=== PATIENT | male | born 1980 | race American Indian/Alaskan Native ===

== ENCOUNTER 2021-05-18 14:33 | Observation (INO) | payer MEDICAID ==
[2021-05-18] MEDS ORDERED: SODIUM CHLORIDE 0.9% 1000 ML 1,000 ML IV ONE ×4 (14:54→19:46)
[2021-05-18] MEDS ORDERED: ONDANSETRON 4 MG/2 ML INJ IV ONE (14:54)
[2021-05-18] MEDS ORDERED: MORPHINE 4 MG/1 ML INJ IV ONE (14:55)
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
--- NOTE | 2021-05-18 15:41 | XRay Report ---
CHEST 1 VIEW INDICATION: Chest pain. COMPARISON: None FINDINGS: Support devices: None. Heart: Within normal limits. Lungs/Pleura: No acute air space or interstitial disease. Additional findings: None. IMPRESSION: No acute findings. Signer Name: Davi Vazquez Jr, MD Signed: 05/18/2021 3:37 PM Workstation Name: [id number]
[2021-05-18 15:43] LABS: Basophils # (Auto) 0.1 K/mm3 (0.0-0.1); Basophils % (Auto) 0.6 % (0.0-1.8); Eosinophils % (Auto) 0.5 % (0.0-4.3); Hematocrit 36.3 % (35.5-45.6); Hemoglobin 11.6 gm/dl (11.8-15.2); Lymphocytes # (Auto) 1.5 K/mm3 (1.2-5.4); Mean Corpuscular HGB Conc 32 % (32-34); Mean Corpuscular Volume 98 fl (84-94); Monocytes # (Auto) 0.6 K/mm3 (0.0-0.8); Monocytes % (Auto) 6.1 % (0.0-7.3); Platelet Count 216 K/mm3 (140-440); Red Blood Count 3.71 M/mm3 (3.65-5.03)
[2021-05-18 15:51] LABS: INR 0.93 (0.87-1.13)
[2021-05-18] MEDS ORDERED: HALOPERIDOL LACTATE 5 MG/1 ML INJ IV ONE (15:59)
[2021-05-18 16:16] LABS: Alanine Aminotransferase 18 units/L (7-56); Albumin 4.2 g/dL (3.9-5); BUN/Creatinine Ratio 22; Blood Urea Nitrogen 42 mg/dL (9-20); Calcium 9.3 mg/dL (8.4-10.2); Hemolysis Index 119
[2021-05-18] MEDS ORDERED: INSULIN REGULAR, HUMAN 100 UNITS/1 ML IV ONE (16:43)
--- NOTE | 2021-05-18 18:05 | Cat Scan Report ---
CTA CHEST WITH CONTRAST INDICATION / CLINICAL INFORMATION: CP, elevated dimer. TECHNIQUE: Axial CT images were obtained through the chest after injection of IV contrast. 3 plane [place] P and/or 3D reconstructions were produced. All CT scans at this location are performed using CT dose reduction for ALARA by means of automated exposure control. COMPARISON: None available. FINDINGS: PULMONARY ARTERIES: No pulmonary emboli. THORACIC AORTA: No significant abnormality. HEART: No significant abnormality. CORONARY ARTERY CALCIFICATION: None. MEDIASTINUM / GLORIA: No significant abnormality. PLEURA: No pleural effusion. No pneumothorax. LUNGS: No acute air space or interstitial disease. ADDITIONAL FINDINGS: None. UPPER ABDOMEN: No acute findings. SKELETAL STRUCTURES: No significant osseous abnormality. IMPRESSION: 1. No CT evidence for pulmonary embolism. 2. No acute findings. Signer Name: Leoncio Cook MD Signed: 05/18/2021 6:00 PM Workstation Name: [id number]
[2021-05-18 18:37] LABS: BUN/Creatinine Ratio 22; Blood Urea Nitrogen 39 mg/dL (9-20); Calcium 8.5 mg/dL (8.4-10.2); Hemolysis Index 99
[2021-05-18 19:37] LABS: Bilirubin,Urine NEG (Negative); Blood,Urine MOD (Negative); Color,Urine Straw (Yellow); Mucus,Urine FEW /HPF; Urobilinogen,Urine < 2.0 mg/dL (<2.0)
[2021-05-18 20:00] LABS: Amphetamine Screen,Urine PRESUMPTIVE NEGATIVE; Benzodiazepines Screen,Urine PRESUMPTIVE NEGATIVE; Cannabinoid Screen,Urine PRESUMPTIVE POSITIVE; Cocaine Screen,Urine PRESUMPTIVE NEGATIVE; Methadone Screen,Urine PRESUMPTIVE NEGATIVE; Opiate Screen,Urine PRESUMPTIVE NEGATIVE
[2021-05-18 20:55] LABS: Calcium 8.1 mg/dL (8.4-10.2)
--- NOTE | 2021-05-18 21:43 | Emergency Department Report ---
Blank Doc - Documentation Documentation: Case was discussed with Dr. Hopkins who agrees to admit.
[2021-05-18] MEDS ORDERED: ACETAMINOPHEN 325 MG TAB PO PRN (22:15)
[2021-05-18] MEDS ORDERED: ONDANSETRON 4 MG/2 ML INJ IV PRN (22:15)
[2021-05-18] MEDS ORDERED: HYDROmorphone 1 MG/1 ML INJ IV PRN (22:15)
[2021-05-18] MEDS ORDERED: SODIUM CHLORIDE 0.9% 1000 ML 1,000 ML IV SCH (22:15)
[2021-05-18] MEDS ORDERED: ALBUTEROL 2.5 MG/3 ML NEBU IH PRN (22:15)
[2021-05-18] MEDS ORDERED: DEXTROSE 50% IN WATER (25GM) 50 ML SYRINGE IV PRN (22:15)
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
[2021-05-18] MEDS: INSULIN GLARGINE 100 UNITS/ML SUB-Q SCH (23:11)
[2021-05-18] MEDS: oxyCODONE /ACETAMINOPHEN 5-325MG TAB PO PRN (23:27)
[2021-05-19] MEDS ORDERED: HALOPERIDOL LACTATE 5 MG/1 ML INJ IM ONE (00:11)
[2021-05-19] MEDS: INSULIN LISPRO 100 UNIT/ML SUB-Q SCH ×4 (00:15→17:41)
[2021-05-19 04:55] LABS: Basophils # (Auto) 0.1 K/mm3 (0.0-0.1); Basophils % (Auto) 0.5 % (0.0-1.8); Hematocrit 33.3 % (35.5-45.6); Hemoglobin 10.7 gm/dl (11.8-15.2); Lymphocytes # (Auto) 1.3 K/mm3 (1.2-5.4); Lymphocytes % (Auto) 10.1 % (13.4-35.0); Mean Corpuscular HGB Conc 32 % (32-34); Mean Corpuscular Volume 95 fl (84-94); Monocytes # (Auto) 0.7 K/mm3 (0.0-0.8); Monocytes % (Auto) 5.3 % (0.0-7.3); Platelet Count 192 K/mm3 (140-440); Red Blood Count 3.52 M/mm3 (3.65-5.03); Red Cell Distribution Width 13.2 % (13.2-15.2)
[2021-05-19] MEDS: HEPARIN 5,000 UNIT/1 ML VIAL SUB-Q SCH ×3 (05:58→23:08)
[2021-05-19] MEDS ORDERED: SODIUM CHLORIDE 0.9% 1000 ML 1,000 ML IV SCH (08:45)
[2021-05-19] MEDS ORDERED: SODIUM CHLORIDE 0.9% 1000 ML 1,000 ML IV ONE (08:45)
--- NOTE | 2021-05-19 09:54 | Cat Scan Report ---
CT ABDOMEN AND PELVIS WITHOUT CONTRAST INDICATION / CLINICAL INFORMATION: abdominal pain PT HAD A WITH CONTRAST STUDY DONE YESTERDAY AT 5 PM . . TECHNIQUE: Axial CT images were obtained through the abdomen and pelvis without IV contrast. Sagittal and blair l reformatted images. All CT scans at this location are performed using CT dose reduction for ALARA b y means of automated exposure control. COMPARISON: None available. FINDINGS: LOWER CHEST: No significant abnormality. LIVER: No significant abnormality. GALLBLADDER: No significant abnormality. Vicarious excretion of contrast agent into the gallbladder i s noted. BILE DUCTS: No significant abnormality. PANCREAS: No significant abnormality. SPLEEN: No significant abnormality. ADRENALS: No significant abnormality. RIGHT KIDNEY and URETER: No significant abnormality. LEFT KIDNEY and URETER: No significant abnormality. STOMACH and SMALL BOWEL: No significant abnormality. COLON: No significant abnormality. APPENDIX: No significant abnormality. PERITONEUM: No free fluid. No free air. No fluid collection. LYMPH NODES: No significant adenopathy. AORTA and ARTERIES: No significant abnormality. IVC and VEINS: No significant abnormality. URINARY BLADDER: No significant abnormality. Residual IV contrast is noted in the renal collecting sy stems and bladder from previous CT with contrast. REPRODUCTIVE ORGANS: No significant abnormality. ADDITIONAL FINDINGS: None. SKELETAL SYSTEM: No significant abnormality. IMPRESSION: No significant abnormality. Signer Name: Davi Vazquez Jr, MD Signed: 05/19/2021 9:49 AM Workstation Name: [id number]
[2021-05-19] MEDS: ASPIRIN 81 MG TAB CHEW PO SCH (09:59)
[2021-05-19] MEDS ORDERED: FAMOTIDINE 20 MG/2 ML INJ IV SCH (10:00)
[2021-05-19] MEDS: INSULIN GLARGINE 100 UNITS/ML SUB-Q SCH ×2 (10:15→23:09)
[2021-05-19] MEDS ORDERED: hydrALAZINE 20 MG/1 ML INJ IV PRN (13:25)
[2021-05-19] MEDS: oxyCODONE /ACETAMINOPHEN 5-325MG TAB PO PRN (13:35)
[2021-05-19] MEDS: LISINOPRIL 5 MG TAB PO SCH (14:24)
[2021-05-19] MEDS: SODIUM BICARBONATE 650 MG TAB PO SCH ×2 (16:24→23:08)
[2021-05-19] MEDS: IPRATROPIUM/ALBUTEROL SULFATE 3 ML AMPUL.NEB IH SCH ×3 (21:55→22:10)
[2021-05-20] MEDS ORDERED: LORazepam 2 MG/ML VIAL IV ONE (00:31)
[2021-05-20] MEDS: INSULIN LISPRO 100 UNIT/ML SUB-Q SCH ×3 (00:33→11:20)
[2021-05-20] MEDS: oxyCODONE /ACETAMINOPHEN 5-325MG TAB PO PRN (05:31)
[2021-05-20] MEDS: HEPARIN 5,000 UNIT/1 ML VIAL SUB-Q SCH (05:32)
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
--- NOTE | 2021-05-20 08:39 | Electrocardiograph Report ---
[facility] Test Date: 2021-05-18 Test Time: 15:13:14 Pat Name: MANISH CELESTE Department: Room: A481 Gender: M Timing Inspector: ALTAGRACIA : 1980 Requested By: TRACI GARCIA Order Number: [id number] Reading MD: Shane Villanueva Measurements Intervals [place] Rate: 115 P: 76 ND: 166 QRS: 75 QRSD: 70 T: 63 QT: 332 QTc: 460 Interpretive Statements Sinus tachycardia Probable left atrial enlargement Consider anterolateral infarct No previous ECG available for comparison Electronically Signed On 05-20-2021 8:39:05 EST by Shane Villanueva
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
[2021-05-20 09:52] LABS: Basophils # (Auto) 0.1 K/mm3 (0.0-0.1); Basophils % (Auto) 1.1 % (0.0-1.8); Eosinophils % (Auto) 0.1 % (0.0-4.3); Hematocrit 34.9 % (35.5-45.6); Hemoglobin 11.2 gm/dl (11.8-15.2); Lymphocytes # (Auto) 1.2 K/mm3 (1.2-5.4); Lymphocytes % (Auto) 12.7 % (13.4-35.0); Mean Corpuscular HGB Conc 32 % (32-34); Mean Corpuscular Volume 95 fl (84-94); Monocytes # (Auto) 0.6 K/mm3 (0.0-0.8); Monocytes % (Auto) 6.5 % (0.0-7.3); Platelet Count 228 K/mm3 (140-440); Red Blood Count 3.67 M/mm3 (3.65-5.03); Red Cell Distribution Width 13.6 % (13.2-15.2)
[2021-05-20] MEDS ORDERED: FAMOTIDINE 20 MG TAB PO SCH (10:00)
[2021-05-20 10:09] LABS: BUN/Creatinine Ratio 16; Blood Urea Nitrogen 22 mg/dL (9-20); Calcium 8.9 mg/dL (8.4-10.2); Hemolysis Index 8
[2021-05-20] MEDS: SODIUM BICARBONATE 650 MG TAB PO SCH (10:26)
[2021-05-20] MEDS: LISINOPRIL 5 MG TAB PO SCH (10:26)
[2021-05-20] MEDS: ASPIRIN 81 MG TAB CHEW PO SCH (10:26)
[2021-05-20] MEDS: INSULIN GLARGINE 100 UNITS/ML SUB-Q SCH (10:27)
[2021-05-20 12:12] VITALS: BP 130/87
== END 2021-05-20 13:20 | disposition home or self-care (01) ==
LOC: ED 14:33 → 3A 21:50 → 4A 22:20
PROVIDERS: ADMIT Hospitalist; ATTEND Internal Medicine
DX: N17.9 Acute kidney failure, unspecified (principal); E11.65 Type 2 diabetes mellitus with hyperglycemia; N17.0 Acute kidney failure with tubular necrosis; R07.89 Other chest pain; E86.0 Dehydration; F17.210 Nicotine dependence, cigarettes, uncomplicated; R10.9 Unspecified abdominal pain; Z79.4 Long term (current) use of insulin; Z79.899 Other long term (current) drug therapy; Z98.890 Other specified postprocedural states
CPT/HCPCS: 36415; 71045; 71275; 74176; 80048; 80053; 80307; 81001; 82010; 82805; 82962; 83036; 83690; 84484; 85025; 85379; 85610; 93005; 96361; 96372; 96374; 96375; 99285; G0378; J1630; J1644; J2060; J2270; J2405; J3490; J7030; Q9967; Q0162; J1815

== ENCOUNTER 2021-08-04 02:34 | Inpatient (IN) | payer SELFPAY ==
[2021-08-04] MEDS ORDERED: SODIUM CHLORIDE 0.9% 1000 ML 1,000 ML IV ONE ×6 (03:03→17:55)
[2021-08-04 03:41] LABS: Basophils % (Auto) 0.4 % (0.0-1.8); Eosinophils % (Auto) 0.1 % (0.0-4.3); Hematocrit 34.4 % (35.5-45.6); Hemoglobin 11.1 gm/dl (11.8-15.2); Lymphocytes # (Auto) 0.7 K/mm3 (1.2-5.4); Lymphocytes % (Auto) 6.4 % (13.4-35.0); Mean Corpuscular HGB Conc 32 % (32-34); Mean Corpuscular Volume 95 fl (84-94); Monocytes # (Auto) 0.4 K/mm3 (0.0-0.8); Monocytes % (Auto) 3.1 % (0.0-7.3); Platelet Count 197 K/mm3 (140-440); Red Blood Count 3.61 M/mm3 (3.65-5.03); Red Cell Distribution Width 12.9 % (13.2-15.2)
[2021-08-04 04:11] LABS: Alanine Aminotransferase 21 units/L (7-56); Albumin 4.4 g/dL (3.9-5); BUN/Creatinine Ratio 20; Bilirubin,Direct < 0.2 mg/dL (0-0.2); Blood Urea Nitrogen 46 mg/dL (9-20); Calcium 9.8 mg/dL (8.4-10.2); Hemolysis Index 17
[2021-08-04] MEDS ORDERED: INSULIN REGULAR, HUMAN 100 UNITS/1 ML IV ONE (04:23)
[2021-08-04] MEDS ORDERED: MORPHINE 4 MG/1 ML INJ IV ONE (04:25)
[2021-08-04] MEDS ORDERED: ONDANSETRON 4 MG/2 ML INJ IV ONE (04:28)
[2021-08-04] MEDS ORDERED: MORPHINE 4 MG/1 ML INJ ONE (04:29)
[2021-08-04] MEDS ORDERED: ONDANSETRON 4 MG/2 ML INJ ONE (04:29)
[2021-08-04] MEDS ORDERED: INSULIN REGULAR, HUMAN 100 UNITS in SODIUM CHLORIDE 0.9% 99 ML IV SCH (05:00)
--- NOTE | 2021-08-04 05:02 | XRay Report ---
CHEST 1 VIEW INDICATION / CLINICAL INFORMATION: pain. COMPARISON: 05/18/2021 FINDINGS: SUPPORT DEVICES: None. HEART / MEDIASTINUM: No significant abnormality. LUNGS / PLEURA: No significant pulmonary or pleural abnormality. No pneumothorax. ADDITIONAL FINDINGS: No significant additional findings. IMPRESSION: 1. No acute findings. No interval change. Signer Name: Kaylyn Bean MD Signed: 08/04/2021 4:57 AM Workstation Name: [id number]
[2021-08-04 05:41] LABS: Calcium 9.1 mg/dL (8.4-10.2)
[2021-08-04 05:59] LABS: Bilirubin,Urine NEG (Negative); Blood,Urine MOD (Negative); Color,Urine Amber (Yellow); Urobilinogen,Urine < 2.0 mg/dL (<2.0)
--- NOTE | 2021-08-04 06:15 | Emergency Department Report ---
ED General Adult HPI - General Chief complaint: Hyperglycemia Stated complaint: HIGH BLOOD SUGAR Time Seen by Provider: 08/04/21 03:01 Source: EMS Mode of arrival: Wheelchair Limitations: No Limitations - History of Present Illness Severity scale (0 -10): 7 - Related Data Previous Rx's Medication Instructions Recorded Last Taken Type Aspirin [Aspirin BABY CHEW TAB] 81 mg PO QDAY #30 tab.chew 05/20/21 Unknown Rx AtorvaSTATin [Lipitor] 40 mg PO QHS #30 tablet 05/20/21 Unknown Rx Insulin Regular, Human [HumuLIN R] 0 unit SQ AC #1 vial 05/20/21 Unknown Rx cephALEXin [Keflex] 500 mg PO Q6HR #20 capsule 05/20/21 Unknown Rx Allergies Allergy/AdvReac Type Severity Reaction Status Date / Time No Known Allergies Allergy Verified 05/18/21 14:36 ED Review of Systems ROS: Stated complaint: HIGH BLOOD SUGAR Other details as noted in HPI ED Past Medical Hx - Past Medical History Hx Diabetes: Yes Hx Seizures: Yes Additional medical history: Gastritis - Social History Smoking Status: Current Every Day Smoker - Medications Home Medications: Home Medications Medication Instructions Recorded Confirmed Last Taken Type Aspirin [Aspirin BABY CHEW TAB] 81 mg PO QDAY #30 tab.chew 05/20/21 Unknown Rx AtorvaSTATin [Lipitor] 40 mg PO QHS #30 tablet 05/20/21 Unknown Rx Insulin Regular, Human [HumuLIN R] 0 unit SQ AC #1 vial 05/20/21 Unknown Rx cephALEXin [Keflex] 500 mg PO Q6HR #20 capsule 05/20/21 Unknown Rx ED Physical Exam - General Limitations: No Limitations ED Course Vital Signs 08/04/21 08/04/21 08/04/21 02:51 03:30 04:35 Temperature 98.7 F Pulse Rate 101 H 111 H Respiratory 16 13 18 Rate Blood Pressure 153/86 Blood Pressure 180/109 [Left] O2 Sat by Pulse 99 98 Oximetry ED Medical Decision Making - Lab Data Result diagrams: 08/04/21 03:32 08/04/21 04:44 Critical care attestation.: If time is entered above; I have spent that time in minutes in the direct care of this critically ill patient, excluding procedure time. ED Disposition Clinical Impression: KARLO (acute kidney injury), Diabetes, Hyperglycemia, DKA (diabetic ketoacidosis) Disposition: 09 ADMITTED INPATIENT Is pt being admited?: Yes Does the pt Need Aspirin: No Condition: Critical Instructions: Diabetes Mellitus Type 2 in Adults (ED), Diabetic Ketoacidosis (ED) Referrals: PRIMARY CARE,MD [Primary Care Provider] - 3-5 Days
[2021-08-04] MEDS ORDERED: D5W/0.45% NACL/KCL 20 MEQ 20 MEQ/1,000 ML BAG IV SCH (07:00)
[2021-08-04 07:18] LABS: Calcium 8.9 mg/dL (8.4-10.2)
[2021-08-04] MEDS ORDERED: DEXTROSE 50% IN WATER (25GM) 50 ML SYRINGE IV PRN ×2 (07:18→18:19)
[2021-08-04] MEDS ORDERED: SODIUM CHLORIDE 0.9% 1000 ML 2,000 ML IV ONE (07:30)
--- NOTE | 2021-08-04 07:39 | History and Physical Report ---
History of Present Illness Date of examination: 08/04/21 Date of admission: 08/04/21 Chief complaint: Elevated Blood glucose History of present illness: 40-year-old male with history of diabetes and tobacco abuse was brought to the emergency room with complaints of high blood sugar. The patient states that due to his job he has inconsistencies in the times that he checks his blood sugar and the time he takes his medication sometimes he checks it at 1 AM but ends up taking medication at 8AM. On arrival to the ER he was noted to to be in DKA. He denies any chest pain nausea vomiting he does report that he had diarrhea a few days ago but this has since stopped. He reports that he is compliant with his medications. He does not have a physician as he states that he just relocated from [facility]. Review of record shows that he was previously admitted to the hospital here for chest pain and at that time was noted to have hyperglycemia also. The medication that he was discharged on which includes Lantus does not appear to be what he is taking currently. He is also unable to recall all the medications that he is taking. Laboratories studies also indicated a creatinine of 2.3 which is above his baseline. DKA Uncontrolled blood glucose in a patient with diabetes mellitus Acute kidney injury with vasomotor nephropathy Anabolic acidosis Dehydration with recent complaint of diarrhea next Past History Past Medical History: hypertension Past Surgical History: No surgical history Social history: no significant social history Family history: no significant family history Medications and Allergies Allergies Allergy/AdvReac Type Severity Reaction Status Date / Time No Known Allergies Allergy Verified 05/18/21 14:36 Home Medications Medication Instructions Recorded Confirmed Last Taken Type Aspirin [Aspirin BABY CHEW TAB] 81 mg PO QDAY #30 tab.chew 05/20/21 Unknown Rx AtorvaSTATin [Lipitor] 40 mg PO QHS #30 tablet 05/20/21 Unknown Rx Insulin Regular, Human [HumuLIN R] 0 unit SQ AC #1 vial 05/20/21 Unknown Rx cephALEXin [Keflex] 500 mg PO Q6HR #20 capsule 05/20/21 Unknown Rx Active Meds: Active Medications Aspirin (Aspirin 81 Mg Tab Chew) 81 mg PO QDAY MARCUS Atorvastatin Calcium (Atorvastatin 40 Mg Tab) 40 mg PO QHS [facility] Dextrose (Dextrose 10% *Hypoglycemia) 0 ml IV PRN PRN PRN Reason: Hypoglycemia Insulin Human Regular 100 (units/ Sodium Chloride) 100 mls @ 1 mls/hr IV TITR MARCUS; Protocol Last Titration: 08/04/21 06:50 Dose: 2.5 units/hr, 2.5 mls/hr Potassium Chloride/Dextrose/Sod Cl (D5w/0.45% Nacl/Kcl 20 Meq) 20 meq in 1,000 mls @ 125 mls/hr IV DIRECT MARCUS Last Admin: 08/04/21 07:21 Dose: 125 mls/hr Sodium Chloride (Nacl 0.9% 1000 Ml) 2,000 mls @ 999 mls/hr IV BOLUS ONE Stop: 08/04/21 09:30 Review of Systems All systems: negative Cardiovascular: high blood pressure Gastrointestinal: nausea, vomiting Exam - Physical Exam Narrative exam: VITAL SIGNS: Reviewed. GENERAL: The patient appears normally developed, Vital signs as documented. HEAD: No signs of head trauma. EYES: Pupils are equal. Extraocular motions intact. EARS: Hearing grossly intact. MOUTH: Oropharynx is normal. NECK: No adenopathy, no JVD. CHEST: Chest with clear breath sounds bilaterally. No wheezes, rales, or rhonchi. CARDIAC: Regular rate and rhythm. S1 and S2, without murmurs, gallops, or rubs. VASCULAR: No Edema. Peripheral pulses normal and equal in all extremities. ABDOMEN: Soft, non tender and non distended. No rebound or guarding, and no masses palpated. Bowel Sounds normal. MUSCULOSKELETAL: Good range of motion of all major joints. Extremities without clubbing, cyanosis or edema. NEUROLOGIC EXAM: Alert and oriented x 3 No focal sensory or strength deficits. Speech normal. Follows commands. PSYCHIATRIC: Mood normal. SKIN: detail exam as documented in skin assessment - Constitutional Vitals: Temp Pulse Resp BP Pulse Ox 98.7 F 111 H 18 111/68 98 08/04/21 02:51 08/04/21 03:30 08/04/21 05:05 08/04/21 07:16 08/04/21 07:16 Results - Labs CBC & Chem 7: 08/04/21 03:32 08/04/21 11:05 Labs: Laboratory Last Values WBC 11.4 K/mm3 (4.5-11.0) H 08/04/21 03:32 RBC 3.61 M/mm3 (3.65-5.03) L 08/04/21 03:32 Hgb 11.1 gm/dl (11.8-15.2) L 08/04/21 03:32 Hct 34.4 % (35.5-45.6) L 08/04/21 03:32 MCV 95 fl (84-94) H 08/04/21 03:32 MCH 31 pg (28-32) 08/04/21 03:32 MCHC 32 % (32-34) 08/04/21 03:32 RDW 12.9 % (13.2-15.2) L 08/04/21 03:32 Plt Count 197 K/mm3 (140-440) 08/04/21 03:32 Lymph % (Auto) 6.4 % (13.4-35.0) L 08/04/21 03:32 [place] % (Auto) 3.1 % (0.0-7.3) 08/04/21 03:32 Eos % (Auto) 0.1 % (0.0-4.3) 08/04/21 03:32 Baso % (Auto) 0.4 % (0.0-1.8) 08/04/21 03:32 Lymph # (Auto) 0.7 K/mm3 (1.2-5.4) L 08/04/21 03:32 [place] # (Auto) 0.4 K/mm3 (0.0-0.8) 08/04/21 03:32 Eos # (Auto) 0.0 K/mm3 (0.0-0.4) 08/04/21 03:32 Baso # (Auto) 0.0 K/mm3 (0.0-0.1) 08/04/21 03:32 Seg Neutrophils % 90.0 % (40.0-70.0) H 08/04/21 03:32 Seg Neutrophils # 10.3 K/mm3 (1.8-7.7) H 08/04/21 03:32 PT 13.3 Sec. (12.2-14.9) 08/04/21 03:32 INR 1.00 (0.87-1.13) 08/04/21 03:32 Sodium 140 mmol/L (137-145) 08/04/21 06:45 Potassium 4.2 mmol/L (3.6-5.0) 08/04/21 06:45 Chloride 101.8 mmol/L (98-107) 08/04/21 06:45 Carbon Dioxide 22 mmol/L (22-30) 08/04/21 06:45 Anion Gap 20 mmol/L 08/04/21 06:45 BUN 43 mg/dL (9-20) H 08/04/21 06:45 Creatinine 2.0 mg/dL (0.8-1.3) H 08/04/21 06:45 Estimated GFR 45 ml/min 08/04/21 06:45 BUN/Creatinine Ratio 22 % 08/04/21 06:45 Glucose 155 mg/dL (75-100) H 08/04/21 06:45 POC Glucose 168 mg/dL (70-105) H 08/04/21 06:45 Ketones Quantitative Small (Negative) 08/04/21 05:03 Calcium 8.9 mg/dL (8.4-10.2) 08/04/21 06:45 Phosphorus 5.10 mg/dL (2.5-4.5) H 08/04/21 04:44 Magnesium 2.30 mg/dL (1.7-2.3) 08/04/21 04:44 Total Bilirubin 0.50 mg/dL (0.1-1.2) 08/04/21 03:32 Direct Bilirubin < 0.2 mg/dL (0-0.2) 08/04/21 03:32 Indirect Bilirubin 0.3 mg/dL 08/04/21 03:32 AST 26 units/L (5-40) 08/04/21 03:32 ALT 21 units/L (7-56) 08/04/21 03:32 Alkaline Phosphatase 114 units/L (35-129) 08/04/21 03:32 Total Protein 7.0 g/dL (6.3-8.2) 08/04/21 03:32 Albumin 4.4 g/dL (3.9-5) 08/04/21 03:32 Albumin/Globulin Ratio 1.7 % 08/04/21 03:32 Amylase 124 units/L (27-131) 08/04/21 03:32 Urine Color Vi (Yellow) 08/04/21 Unknown Urine Turbidity Cloudy (Clear) 08/04/21 Unknown Urine pH 5.0 (5.0-7.0) 08/04/21 Unknown Ur Specific [place] 1.016 (1.003-1.030) 08/04/21 Unknown Urine Protein 100 mg/dl mg/dL (Negative) 08/04/21 Unknown Urine Glucose (UA) Neg mg/dL (Negative) 08/04/21 Unknown Urine Ketones Neg mg/dL (Negative) 08/04/21 Unknown Urine Blood Mod (Negative) 08/04/21 Unknown Urine Nitrite Neg (Negative) 08/04/21 Unknown Urine Bilirubin Neg (Negative) 08/04/21 Unknown Urine Urobilinogen < 2.0 mg/dL (<2.0) 08/04/21 Unknown Ur Leukocyte Esterase Lg (Negative) 08/04/21 Unknown Urine WBC (Auto) 1.0 /HPF (0.0-6.0) 08/04/21 Unknown Urine RBC (Auto) 1.0 /HPF (0.0-6.0) 08/04/21 Unknown Assessment and Plan Assessment and plan: 40-year-old male with history of diabetes and tobacco abuse was brought to the emergency room with complaints of high blood sugar. The patient states that due to his job he has inconsistencies in the times that he checks his blood sugar and the time he takes his medication sometimes he checks it at 1 AM but ends up taking medication at 8AM. On arrival to the ER he was noted to to be in DKA. He denies any chest pain nausea vomiting he does report that he had diarrhea a few days ago but this has since stopped. He reports that he is compliant with his medications. He does not have a physician as he states that he just relocated from [facility]. Review of record shows that he was previously admitted to the hospital here for chest pain and at that time was noted to have hyperglycemia also. The medication that he was discharged on which includes Lantus does not appear to be what he is taking currently. He is also unable to recall all the medications that he is taking. Laboratories studies also indicated a creatinine of 2.3 which is above his baseline. DKA Uncontrolled blood glucose in a patient with diabetes mellitus Acute kidney injury with vasomotor nephropathy Anabolic acidosis Dehydration with recent complaint of diarrhea next Plan Admit patient to ICU Consult to web offset press feeder Continue insulin drip as already initiated by the ED physician Transition therapy when anion gap is closed Resume home dose of blood pressure medication We will give additional 2 L bolus of fluid Counseling provided to the patient he verbalized understanding DVT and GI prophylax The high probability of a clinically significant, sudden or life threatening deterioration of the [endocrinology] system(s) required my full and direct attention, intervention and personal management. The aggregate critical care time was [35] minutes. This time is in addition to time spent performing reported procedures but includes the following: [x] Data Review and interpretation [x] Patient assessment and monitoring of vital signs [x] Documentation [x] Medication orders and management Advance Directives: Yes Plan of care discussed with patient/family: Yes
[2021-08-04] MEDS ORDERED: ONDANSETRON 4 MG/2 ML INJ IV PRN (08:00)
[2021-08-04] MEDS ORDERED: ACETAMINOPHEN 325 MG TAB PO PRN (08:00)
[2021-08-04] MEDS ORDERED: SODIUM CHLORIDE 0.9% 50 ML IVPB IV PRN (08:00)
[2021-08-04] MEDS ORDERED: DEXTROSE 10% *Hypoglycemia IV PRN (08:00)
[2021-08-04 08:25] LABS: Calcium 8.9 mg/dL (8.4-10.2)
[2021-08-04] MEDS: ASPIRIN 81 MG TAB CHEW PO SCH (11:17)
[2021-08-04 11:31] LABS: Calcium 8.5 mg/dL (8.4-10.2)
[2021-08-04] MEDS ORDERED: DEXTROSE 5% IN WATER 1,000 ML IV SCH (15:00)
[2021-08-04 16:43] LABS: Calcium 8.5 mg/dL (8.4-10.2)
[2021-08-04] MEDS ORDERED: INSULIN LISPRO 100 UNIT/ML SUB-Q ONE (19:00)
[2021-08-04] MEDS: INSULIN REGULAR, HUMAN 100 UNITS/1 ML SUB-Q SCH (23:34)
[2021-08-04] MEDS: INSULIN GLARGINE 100 UNITS/ML SUB-Q SCH (23:36)
[2021-08-05 08:13] LABS: Basophils # (Auto) 0.1 K/mm3 (0.0-0.1); Eosinophils # (Auto) 0.5 K/mm3 (0.0-0.4); Eosinophils % (Auto) 4.7 % (0.0-4.3); Hemoglobin 10.3 gm/dl (11.8-15.2); Lymphocytes # (Auto) 1.8 K/mm3 (1.2-5.4); Lymphocytes % (Auto) 17.6 % (13.4-35.0); Mean Corpuscular HGB Conc 33 % (32-34); Mean Corpuscular Volume 92 fl (84-94); Monocytes # (Auto) 0.5 K/mm3 (0.0-0.8); Monocytes % (Auto) 5.2 % (0.0-7.3); Platelet Count 173 K/mm3 (140-440); Red Blood Count 3.36 M/mm3 (3.65-5.03); Red Cell Distribution Width 12.7 % (13.2-15.2)
[2021-08-05 08:30] LABS: Calcium 8.4 mg/dL (8.4-10.2)
[2021-08-05] MEDS: ASPIRIN 81 MG TAB CHEW PO SCH (08:57)
[2021-08-05] MEDS: oxyCODONE /ACETAMINOPHEN 5-325MG TAB PO PRN ×2 (08:57→18:21)
[2021-08-05] MEDS: METOCLOPRAMIDE 10 MG/2 ML INJ IV PRN ×2 (08:57→18:23)
[2021-08-05] MEDS: INSULIN REGULAR, HUMAN 100 UNITS/1 ML SUB-Q SCH ×4 (08:57→21:49)
--- NOTE | 2021-08-05 10:27 | Consultation ---
History of Present Illness Consult date: 08/05/21 Requesting physician: MISSY CHERRY Reason for consult: other (DKA) History of present illness: PULMONARY/CCM CONSULT NOTE (Full dictation # [id number]) Please see dictated notes for full details Past History Past Medical History: hypertension Past Surgical History: No surgical history Social history: no significant social history Family history: no significant family history Medications and Allergies Allergies Allergy/AdvReac Type Severity Reaction Status Date / Time No Known Allergies Allergy Verified 05/18/21 14:36 Home Medications Medication Instructions Recorded Confirmed Last Taken Type Aspirin [Aspirin BABY CHEW TAB] 81 mg PO QDAY #30 tab.chew 05/20/21 Unknown Rx AtorvaSTATin [Lipitor] 40 mg PO QHS #30 tablet 05/20/21 Unknown Rx Insulin Regular, Human [HumuLIN R] 0 unit SQ AC #1 vial 05/20/21 Unknown Rx cephALEXin [Keflex] 500 mg PO Q6HR #20 capsule 05/20/21 Unknown Rx Active Meds: Active Medications Acetaminophen (Acetaminophen 325 Mg Tab) 650 mg PO Q4H PRN PRN Reason: Pain MILD(1-3)/Fever >100.5/HUSSEIN Aspirin (Aspirin 81 Mg Tab Chew) 81 mg PO QDAY [facility] Last Admin: 08/05/21 08:57 Dose: 81 mg Atorvastatin Calcium (Atorvastatin 40 Mg Tab) 40 mg PO QHS [facility] Last Admin: 08/04/21 23:33 Dose: 40 mg Dextrose (Dextrose 10% *Hypoglycemia) 0 ml IV PRN PRN PRN Reason: Hypoglycemia Last Admin: 08/04/21 09:30 Dose: 250 ml Gabapentin (Gabapentin 100 Mg Cap) 100 mg PO Q8HR [facility] Insulin Glargine (Insulin Glargine 100 Units/Ml) 12 units SUB-Q QHS [facility] Last Admin: 08/04/21 23:36 Dose: 12 units Insulin Human Regular (Insulin Regular, Human 100 Units/1 Ml) 0 units SUB-Q [facility]; Protocol Last Admin: 08/05/21 08:57 Dose: 4 units Metoclopramide HCl (Metoclopramide 10 Mg/2 Ml Inj) 10 mg IV Q6H PRN PRN Reason: Nausea And Vomiting Last Admin: 08/05/21 08:57 Dose: 10 mg Ondansetron HCl (Ondansetron 4 Mg/2 Ml Inj) 4 mg IV Q4H PRN PRN Reason: Nausea And Vomiting Oxycodone/Acetaminophen (Oxycodone /Acetaminophen 5-325mg Tab) 1 tab PO Q6H PRN PRN Reason: Pain, Moderate (4-6) Last Admin: 08/05/21 08:57 Dose: 1 tab Sodium Chloride (Sodium Chloride 0.9% 10 Ml Flush Syringe) 10 ml IV BID MARCUS Last Admin: 08/04/21 23:37 Dose: 10 ml Sodium Chloride (Sodium Chloride 0.9% 50 Ml Ivpb) 10 ml IV PRN PRN PRN Reason: flush Physical Examination Vital signs: Vital Signs Temp Pulse Resp BP Pulse Ox 98.7 F 101 H 16 180/109 99 08/04/21 02:51 08/04/21 02:51 08/04/21 02:51 08/04/21 02:51 08/04/21 02:51 Results - Laboratory Findings CBC and BMP: 08/05/21 08:05 08/05/21 08:04 PT/INR, D-dimer PT 13.3 Sec. (12.2-14.9) 08/04/21 03:32 INR 1.00 (0.87-1.13) 08/04/21 03:32 Abnormal lab findings: Abnormal Labs 08/04/21 08/04/21 08/04/21 03:20 03:32 03:32 WBC 11.4 H RBC 3.61 L Hgb 11.1 L Hct 34.4 L MCV 95 H RDW 12.9 L Lymph % (Auto) 6.4 L Eos % (Auto) Lymph # (Auto) 0.7 L Eos # (Auto) Seg Neutrophils % 90.0 H Seg Neutrophils # 10.3 H Sodium 132 L Potassium 5.2 H Chloride 89.7 L Carbon Dioxide 17 L BUN 46 H Creatinine 2.3 H Glucose 768 H* POC Glucose > 600 H Hemoglobin A1c Calcium Phosphorus 08/04/21 08/04/21 08/04/21 04:44 04:44 06:45 WBC RBC Hgb Hct MCV RDW Lymph % (Auto) Eos % (Auto) Lymph # (Auto) Eos # (Auto) Seg Neutrophils % Seg Neutrophils # Sodium 135 L Potassium Chloride 95.1 L Carbon Dioxide 16 L BUN 45 H 43 H Creatinine 2.2 H 2.0 H Glucose 670 H* 155 H POC Glucose Hemoglobin A1c Calcium Phosphorus 5.10 H 08/04/21 08/04/21 08/04/21 06:45 07:52 07:52 WBC RBC Hgb Hct MCV RDW Lymph % (Auto) Eos % (Auto) Lymph # (Auto) Eos # (Auto) Seg Neutrophils % Seg Neutrophils # Sodium Potassium Chloride Carbon Dioxide BUN 40 H Creatinine 1.8 H Glucose POC Glucose 168 H Hemoglobin A1c 16.3 H Calcium Phosphorus 08/04/21 08/04/21 08/04/21 08:23 10:50 11:05 WBC RBC Hgb Hct MCV RDW Lymph % (Auto) Eos % (Auto) Lymph # (Auto) Eos # (Auto) Seg Neutrophils % Seg Neutrophils # Sodium 133 L Potassium 5.4 H D Chloride Carbon Dioxide 19 L BUN 35 H Creatinine 1.6 H Glucose 224 H POC Glucose 58 L 210 H Hemoglobin A1c Calcium Phosphorus 08/04/21 08/04/21 08/04/21 12:30 13:55 15:29 WBC RBC Hgb Hct MCV RDW Lymph % (Auto) Eos % (Auto) Lymph # (Auto) Eos # (Auto) Seg Neutrophils % Seg Neutrophils # Sodium Potassium Chloride Carbon Dioxide BUN Creatinine Glucose POC Glucose 231 H 317 H 213 H Hemoglobin A1c Calcium Phosphorus 08/04/21 08/04/21 08/04/21 16:01 17:56 18:59 WBC RBC Hgb Hct MCV RDW Lymph % (Auto) Eos % (Auto) Lymph # (Auto) Eos # (Auto) Seg Neutrophils % Seg Neutrophils # Sodium 136 L Potassium Chloride Carbon Dioxide BUN 32 H Creatinine 1.7 H Glucose 227 H POC Glucose 113 H 33 L Hemoglobin A1c Calcium Phosphorus 08/04/21 08/04/21 08/04/21 19:53 21:13 21:34 WBC RBC Hgb Hct MCV RDW Lymph % (Auto) Eos % (Auto) Lymph # (Auto) Eos # (Auto) Seg Neutrophils % Seg Neutrophils # Sodium 136 L Potassium Chloride Carbon Dioxide 21 L BUN 29 H Creatinine 1.6 H Glucose 139 H POC Glucose 172 H 131 H Hemoglobin A1c Calcium 8.0 L Phosphorus 08/04/21 08/05/21 08/05/21 22:34 08:04 08:05 WBC RBC 3.36 L Hgb 10.3 L Hct 31.0 L MCV RDW 12.7 L Lymph % (Auto) Eos % (Auto) 4.7 H Lymph # (Auto) Eos # (Auto) 0.5 H Seg Neutrophils % 71.5 H Seg Neutrophils # Sodium 136 L Potassium Chloride Carbon Dioxide 20 L BUN 26 H Creatinine 1.6 H Glucose 224 H POC Glucose 155 H Hemoglobin A1c Calcium Phosphorus 08/05/21 08:49 WBC RBC Hgb Hct MCV RDW Lymph % (Auto) Eos % (Auto) Lymph # (Auto) Eos # (Auto) Seg Neutrophils % Seg Neutrophils # Sodium Potassium Chloride Carbon Dioxide BUN Creatinine Glucose POC Glucose 235 H Hemoglobin A1c Calcium Phosphorus
[2021-08-05] MEDS: GABAPENTIN 100 MG CAP PO SCH ×2 (12:19→21:50)
--- NOTE | 2021-08-05 13:13 | Progress Note ---
Assessment and Plan Assessment and plan: 40-year-old male with history of diabetes and tobacco abuse was brought to the emergency room with complaints of high blood sugar. The patient states that due to his job he has inconsistencies in the times that he checks his blood sugar and the time he takes his medication sometimes he checks it at 1 AM but ends up taking medication at 8AM. On arrival to the ER he was noted to to be in DKA. He denies any chest pain nausea vomiting he does report that he had diarrhea a few days ago but this has since stopped. He reports that he is compliant with his medications. He does not have a physician as he states that he just relocated from [facility]. Review of record shows that he was previously admitted to the hospital here for chest pain and at that time was noted to have hyperglycemia also. The medication that he was discharged on which includes Lantus does not appear to be what he is taking currently. He is also unable to recall all the medications that he is taking. Laboratories studies also indicated a creatinine of 2.3 which is above his baseline. DKA now resolved Uncontrolled blood glucose in a patient with diabetes mellitus Acute kidney injury with vasomotor nephropathy Metabolic acidosis Diabetic neuropathy Gastroparesis Dehydration with recent complaint of diarrhea next Plan Physical exam examination did not show any acute source of any pain. Nevertheless we will start the patient on gabapentin for noted neuropathy likely secondary to uncontrolled diabetes. We will better control blood sugar We will manage for the next 24 hours to ensure that the patient is able to tolerate p.o. Patient has some social issues with housing case management and social services technician will work on this with anticipation for discharge tomorrow Insulin therapy was converted will adjust for better blood sugar coverage We will add Reglan to assist with diabetic neuropathy and gastroparesis Extensive education given to the patient by preventive measures 50 minutes of counseling provided on eye exam foot exam and management in a diabetic he verbalized understanding DVT and GI prophylax History Interval history: Patient seen and examined this morning reports generalized paresthesia both upper and lower extremity. And also unable to keep any food down at this time. Hospitalist Physical - Physical exam Narrative exam: VITAL SIGNS: Reviewed. GENERAL: The patient appears normally developed, appears a little bit uncomfor table in a position. Vital signs as documented. HEAD: No signs of head trauma. EYES: Pupils are equal. Extraocular motions intact. EARS: Hearing grossly intact. MOUTH: Oropharynx is normal. NECK: No adenopathy, no JVD. CHEST: Chest with clear breath sounds bilaterally. No wheezes, rales, or rhonchi. CARDIAC: Regular rate and rhythm. S1 and S2, without murmurs, gallops, or ru bs. VASCULAR: No Edema. Peripheral pulses normal and equal in all extremities. ABDOMEN: Soft, non tender and non distended. No rebound or guarding, and no masses palpated. Bowel Sounds normal. MUSCULOSKELETAL: Good range of motion of all major joints. Extremities without clubbing, cyanosis or edema. NEUROLOGIC EXAM: Alert and oriented x 3 No focal sensory or strength deficits. Speech normal. Follows commands. PSYCHIATRIC: Mood normal. SKIN: detail exam as documented in skin assessment - Constitutional Vitals: Temp Pulse Resp BP Pulse Ox 98.1 F 92 H 19 128/85 96 08/05/21 05:55 08/05/21 05:55 08/05/21 05:55 08/05/21 05:55 08/05/21 11:07 Results - Labs CBC & Chem 7: 08/05/21 08:05 08/05/21 08:04 Labs: Laboratory Last Values WBC 10.3 K/mm3 (4.5-11.0) 08/05/21 08:05 RBC 3.36 M/mm3 (3.65-5.03) L 08/05/21 08:05 Hgb 10.3 gm/dl (11.8-15.2) L 08/05/21 08:05 Hct 31.0 % (35.5-45.6) L 08/05/21 08:05 MCV 92 fl (84-94) 08/05/21 08:05 MCH 31 pg (28-32) 08/05/21 08:05 MCHC 33 % (32-34) 08/05/21 08:05 RDW 12.7 % (13.2-15.2) L 08/05/21 08:05 Plt Count 173 K/mm3 (140-440) 08/05/21 08:05 Lymph % (Auto) 17.6 % (13.4-35.0) 08/05/21 08:05 Th[place]morton % (Auto) 5.2 % (0.0-7.3) 08/05/21 08:05 Eos % (Auto) 4.7 % (0.0-4.3) H 08/05/21 08:05 Baso % (Auto) 1.0 % (0.0-1.8) 08/05/21 08:05 Lymph # (Auto) 1.8 K/mm3 (1.2-5.4) 08/05/21 08:05 Throckmorton # (Auto) 0.5 K/mm3 (0.0-0.8) 08/05/21 08:05 Eos # (Auto) 0.5 K/mm3 (0.0-0.4) H 08/05/21 08:05 Baso # (Auto) 0.1 K/mm3 (0.0-0.1) 08/05/21 08:05 Seg Neutrophils % 71.5 % (40.0-70.0) H 08/05/21 08:05 Seg Neutrophils # 7.4 K/mm3 (1.8-7.7) 08/05/21 08:05 PT 13.3 Sec. (12.2-14.9) 08/04/21 03:32 INR 1.00 (0.87-1.13) 08/04/21 03:32 Sodium 136 mmol/L (137-145) L 08/05/21 08:04 Potassium 4.6 mmol/L (3.6-5.0) 08/05/21 08:04 Chloride 104.2 mmol/L (98-107) 08/05/21 08:04 Carbon Dioxide 20 mmol/L (22-30) L 08/05/21 08:04 Anion Gap 16 mmol/L 08/05/21 08:04 BUN 26 mg/dL (9-20) H 08/05/21 08:04 Creatinine 1.6 mg/dL (0.8-1.3) H 08/05/21 08:04 Estimated GFR 58 ml/min 08/05/21 08:04 BUN/Creatinine Ratio 16 % 08/05/21 08:04 Glucose 224 mg/dL (75-100) H 08/05/21 08:04 POC Glucose 250 mg/dL (70-105) H 08/05/21 11:57 Hemoglobin A1c 16.3 % (4-6) H 08/04/21 07:52 Ketones Quantitative Small (Negative) 08/04/21 05:03 Calcium 8.4 mg/dL (8.4-10.2) 08/05/21 08:04 Phosphorus 3.20 mg/dL (2.5-4.5) D 08/04/21 07:52 Magnesium 2.30 mg/dL (1.7-2.3) 08/04/21 07:52 Total Bilirubin 0.50 mg/dL (0.1-1.2) 08/04/21 03:32 Direct Bilirubin < 0.2 mg/dL (0-0.2) 08/04/21 03:32 Indirect Bilirubin 0.3 mg/dL 08/04/21 03:32 AST 26 units/L (5-40) 08/04/21 03:32 ALT 21 units/L (7-56) 08/04/21 03:32 Alkaline Phosphatase 114 units/L (35-129) 08/04/21 03:32 Total Protein 7.0 g/dL (6.3-8.2) 08/04/21 03:32 Albumin 4.4 g/dL (3.9-5) 08/04/21 03:32 Albumin/Globulin Ratio 1.7 % 08/04/21 03:32 Amylase 124 units/L (27-131) 08/04/21 03:32 Urine Color Vi (Yellow) 08/04/21 Unknown Urine Turbidity Cloudy (Clear) 08/04/21 Unknown Urine pH 5.0 (5.0-7.0) 08/04/21 Unknown Ur Specific Sidney 1.016 (1.003-1.030) 08/04/21 Unknown Urine Protein 100 mg/dl mg/dL (Negative) 08/04/21 Unknown Urine Glucose (UA) Neg mg/dL (Negative) 08/04/21 Unknown Urine Ketones Neg mg/dL (Negative) 08/04/21 Unknown Urine Blood Mod (Negative) 08/04/21 Unknown Urine Nitrite Neg (Negative) 08/04/21 Unknown Urine Bilirubin Neg (Negative) 08/04/21 Unknown Urine Urobilinogen < 2.0 mg/dL (<2.0) 08/04/21 Unknown Ur Leukocyte Esterase Lg (Negative) 08/04/21 Unknown Urine WBC (Auto) 1.0 /HPF (0.0-6.0) 08/04/21 Unknown Urine RBC (Auto) 1.0 /HPF (0.0-6.0) 08/04/21 Unknown Velazquez/IV: Voiding Method Toilet Active Medications - Current Medications Current Medications: Generic Name Dose Route Start Last Admin Trade Name Freq PRN Reason Stop Dose Admin Acetaminophen 650 mg 08/04/21 08:00 Acetaminophen 325 Mg Tab PO Q4H PRN Pain MILD(1-3)/Fever >100.5/HUSSEIN Aspirin 81 mg 08/04/21 10:00 08/05/21 08:57 Aspirin 81 Mg Tab Chew PO 81 mg QDAY MARCUS Administration Atorvastatin Calcium 40 mg 08/04/21 22:00 08/04/21 23:33 Atorvastatin 40 Mg Tab PO 40 mg QHS MARCUS Administration Dextrose 0 ml 08/04/21 08:00 08/04/21 09:30 Dextrose 10% *Hypoglycemia IV 250 ml PRN PRN Administration Hypoglycemia Gabapentin 100 mg 08/05/21 12:00 08/05/21 12:19 Gabapentin 100 Mg Cap PO 100 mg Q8HR MARCUS Administration Insulin Glargine 12 units 08/04/21 22:00 08/04/21 23:36 Insulin Glargine 100 Units/Ml SUB-Q 12 units QHS MARCUS Administration Insulin Human Regular 0 units 08/04/21 22:00 08/05/21 12:19 Insulin Regular, Human 100 Units/1 Ml SUB-Q 6 units ACHS MARCUS Administration Protocol Metoclopramide HCl 10 mg 08/04/21 08:00 08/05/21 08:57 Metoclopramide 10 Mg/2 Ml Inj IV 10 mg Q6H PRN Administration Nausea And Vomiting Ondansetron HCl 4 mg 08/04/21 08:00 Ondansetron 4 Mg/2 Ml Inj IV Q4H PRN Nausea And Vomiting Oxycodone/Acetaminophen 1 tab 08/04/21 08:00 08/05/21 08:57 Oxycodone /Acetaminophen 5-325mg Tab PO 1 tab Q6H PRN Administration Pain, Moderate (4-6) Sodium Chloride 10 ml 08/04/21 10:00 08/04/21 23:37 Sodium Chloride 0.9% 10 Ml Flush Syringe IV 10 ml BID AMRCUS Administration Sodium Chloride 10 ml 08/04/21 08:00 Sodium Chloride 0.9% 50 Ml Ivpb IV PRN PRN flush Nutrition/Malnutrition Assess - Dietary Evaluation Nutrition/Malnutrition Findings: Nutrition Notes Start: 08/04/21 12:47 Freq: Status: Active Protocol: Document 08/04/21 12:47 TAMI (Rec: 08/04/21 12:51 TAMI [email or web address]) Nutrition Notes Need for Assessment generated from: MD Order,Education Initial or Follow up Brief Note Current Diagnosis Acute Kidney Injury,Diabetes Other Pertinent Diagnosis DKA. Current Diet Cardiac/Consistent Carbohydrates Diet (since D ). Height 6 ft Weight 70.307 kg [place] Body Weight (kg) 80.90 BMI 20.9 Weight change and time frame None reported at admission. Weight Status Appropriate Subjective/Other Information RD consult for Nutrition Education. No report available on Pt's PO intake of meals at the time. Pt still on ED, not a candidate for Nutrition Education at the time, will assess feasibility on F/U. Percent of energy/protein needs met: Prescribed Cardiac/Consistent Carbohydrates Diet provides for energy/protein needs (1, 977 Kcal/86 g) during LOS. Nutrition Intervention Follow-Up By: 08/11/21 Additional Comments Nutrition education will be provided on F/U, if feasible. Continue monitoring food tolerance, %PO intake of meals , and BM.
--- NOTE | 2021-08-05 17:58 | Consultation ---
DATE OF CONSULTATION: 08/04/2021 PULMONARY CRITICAL CARE CONSULTATION NOTE CONSULTING PHYSICIAN: Dr. Marie. REASON FOR CONSULTATION: Diabetic ketoacidosis. CHIEF COMPLAINT AND HISTORY OF PRESENT ILLNESS: The patient is a 40-year-old male with past medical history significant for diabetes, on insulin at home, came into the Emergency Room complaining of elevated blood sugars. He denied any nausea or vomiting. He denied chest pains. He had some diarrhea a few days prior to coming in. He stated that he has been compliant with his medication. He does have 5+ pack year tobacco smoking history and continues to smoke about a pack of cigarettes a week, he says. Recently moved to the [facility] from [place]. Evaluation also indicated that he had kidney disease in a recent hospitalization. He remembers his serum creatinine as 2.3. Evaluation in the Emergency Room was consistent ultimately with diabetic ketoacidosis and we were asked to admit to the ICU for IV insulin administration. Unfortunately, there were no beds available. He remained in the Emergency Room on IV insulin. When I stopped by to see him, he was still pretty weak, but feeling a little bit better. Denied again nausea or vomiting, denied any chest pains. Denied palpitations. Denied any open wounds or sores on his body. He stated he had taken the 1st of the COVID vaccination, but he did not complete the 2nd shot; and as far as he knows, he has not been around anyone with known COVID-19 infection. This really is as much of the history of presentation as I have. PAST MEDICAL HISTORY: Diabetes, hypertension, tobacco abuse. PAST SURGICAL HISTORY: Denies. MEDICATIONS: He was on at the time I stopped by to see him according to medication administration record included the following: Tylenol 650 mg p.o. q. 4 hours p.r.n. mild pain or fevers, baby aspirin one daily, Lipitor 40 mg p.o. at bedtime, Neurontin 100 mg p.o. q. 8 hours. He was on IV insulin drip, I believe at 2 units per hour. Insulin via sliding scale was about to be started. Reglan 10 mg IV q. 6 hours p.r.n. nausea and vomiting. Zofran 4 mg IV q. 4 hours p.r.n. nausea and vomiting, Percocet 5/325 one tablet p.o. q. 6 hours p.r.n. moderate pain. ALLERGIES: No known drug allergies. DIET: Well built gentleman. Denies acute weight loss or gain history in the preceding few weeks to months. FAMILY AND SOCIAL HISTORY: Lives in the community. He has about a 5-pack year tobacco smoking history. Denies alcohol or illicit drug use or abuse. Denies any family history of significance. REVIEW OF SYSTEMS: No loss of consciousness. No new onset seizures. No new onset focal weakness. Denies gross hematochezia or melena. Denies gross hematuria or dysuria. Denies any new open wounds, sores, or boils on his body. Denies heat or cold intolerance. Complete 13-system review of system was obtained. Pertinent positives and/or negatives as in body of history above, otherwise they are noncontributory. PHYSICAL EXAMINATION: VITAL SIGNS: At presentation in the Emergency Room revealed vital signs shows that he was afebrile, temperature 98.7 degrees Fahrenheit, pulse of 101, respiratory rate of 16, blood pressure 180/109, O2 sats were 99%, inspired oxygen concentration at that time was not recorded. When I stopped by to see him, O2 sats were 97% and that was on room air. GENERAL: He is a middle-aged thin male. Normocephalic, atraumatic. Resting in bed with normal respiratory effort at rest. HEAD, EYES, EARS, NOSE AND THROAT: Anicteric. No conjunctival erythema. Oropharynx was dry. NECK: No gross jugular venous distention, no thyromegaly. Grossly, there were no palpable lymph nodes in the supraclavicular or submandibular lymph node chains. LUNGS: Auscultation of both lung chakraborty unremarkable. Good bilateral air movement. No wheezing. HEART: Sounds 1 and 2 are heard, regular rate and rhythm at the time of my evaluation without overt rubs or murmurs. ABDOMEN: Soft, full, bowel sounds are positive, mildly tender in the epigastric region. No palpable hepatosplenomegaly. EXTREMITIES: Without overt digital clubbing or cyanosis, no pedal edema. Pedal pulses were 2+ bilaterally. NEUROLOGIC: Pupils were equal, round, about 4 mm, reactive to light. Extraocular muscle movements were intact. He moves all 4 extremities spontaneously. SKIN: Normal turgor in the areas examined without overt cellulitis or rash. Please see the wound care nurses' notes for full description of his skin. PSYCHIATRIC: Mood was normal. Affect was appropriate. He had intact judgment and insight. LABORATORY DATA: From my review are as follows: Admission white cell count 11,400, hemoglobin 11.1, hematocrit 34.4, platelet count 197. INR 1.0. Serum sodium 132, potassium 5.2, chloride 90, bicarbonate 17, BUN 46, creatinine 2.3, glucose 768. Hemoglobin A1c 16.3. Liver function tests within normal limits. Urinalysis was done, negative for nitrites. It did have large leukocyte esterase, but only 1 white cells per high power field. Serum creatinine was already coming down at 1.6. No cultures for my review. Chest x-ray has been reviewed. Normal chest x-ray for his age. No focal infiltrates. No acute findings. ASSESSMENT: 1. Diabetic ketoacidosis. 2. Acute kidney injury. 3. Intravascular volume depletion. 4. Anemia that is . 5. Mild hyperkalemia. PLAN: He is about to be transitioned off the insulin drip and will be started on long-acting insulin. I have counseled tobacco abuse cessation and he is willing to give it a shot. I have told him to reach out to his primary care physician for aids to help with quitting if he does need those. Otherwise, electrolytes will be followed and corrected as necessary per the DKA protocol. He will be transitioned off IV insulin. He is going to be placed on GI prophylaxis as well as DVT prophylaxis. Flu and pneumonia vaccination will be addressed per protocol. Thank you very much for the consult. We will follow along and make further recommendations as picture progresses/becomes clearer. TID: [id number] RECEIPT: [id number] KIM/DORIS/KOREY
[2021-08-05] MEDS: INSULIN GLARGINE 100 UNITS/ML SUB-Q SCH (21:47)
[2021-08-06] MEDS: GABAPENTIN 100 MG CAP PO SCH (05:41)
[2021-08-06 06:17] VITALS: BP 133/91
--- NOTE | 2021-08-06 07:37 | Discharge Summary ---
Providers - Providers Date of Admission: 08/04/21 07:30 Attending physician: MISSY CHERRY MD 08/04/21 07:18 Consult to Dietitian/Nutrition [CONS] Routine Physician Instructions: Reason For Exam: DKA Reason for Consult: Nutrition Recommendations Reason for Consult: Diet education 08/04/21 14:13 Consult to Physician [CONS] Routine Comment: Consulting Provider: TOBIN MILTON Physician Instructions: Reason For Exam: dka Primary care physician: HOME HEALTH CARE COORDINATOR Hospitalization Reason for admission: DKA Condition: Stable Hospital course: 40-year-old male with history of diabetes and tobacco abuse was brought to the emergency room with complaints of high blood sugar. The patient states that due to his job he has inconsistencies in the times that he checks his blood sugar and the time he takes his medication sometimes he checks it at 1 AM but ends up taking medication at 8AM. On arrival to the ER he was noted to to be in DKA. He denies any chest pain nausea vomiting he does report that he had diarrhea a few days ago but this has since stopped. He reports that he is compliant with his medications. He does not have a physician as he states that he just relocated from [facility]. Review of record shows that he was previously admitted to the hospital here for chest pain and at that time was noted to have hyperglycemia also. The medication that he was discharged on which includes Lantus does not appear to be what he is taking currently. He is also unable to recall all the medications that he is taking. Laboratories studies also indicated a creatinine of 2.3 which is above his baseline. DKA now resolved Uncontrolled blood glucose in a patient with diabetes mellitus Acute kidney injury with vasomotor nephropathy Metabolic acidosis Diabetic neuropathy Gastroparesis Dehydration with recent complaint of diarrhea next Plan Patient on admission was treated with DKA protocol and subsequently changed to sliding scale with long-acting insulin also. He is improvement with gomez he did complain of bilateral paresthesia while lying in bed in position and also nausea with vomiting and was started on Reglan and also gabapentin with improvement in the next 24 hours. This morning he is ambulatory and ready to be discharged actually tells me that he wants to leave. Again we had extensive discussion about preventive measures and the importance of compliance with all medications which he verbalized understanding. New scripts were provided along with insulin supplies and glucometer prescription Disposition: HOME / SELF CARE / HOMELESS Final Discharge Diagnosis (Prints w/discharge instructions): Diabetes ketoacidosis with Diabetic Neuropathy Time spent for discharge: 35 mins Core Measure Documentation - Palliative Care Palliative Care/ Comfort Measures: Not Applicable - Core Measures Any of the following diagnoses?: none Exam - Physical Exam Narrative exam: VITAL SIGNS: Reviewed. GENERAL: The patient appears normally developed, appears a little bit uncomfortable in a position. Vital signs as documented. HEAD: No signs of head trauma. EYES: Pupils are equal. Extraocular motions intact. EARS: Hearing grossly intact. MOUTH: Oropharynx is normal. NECK: No adenopathy, no JVD. CHEST: Chest with clear breath sounds bilaterally. No wheezes, rales, or rhonchi. CARDIAC: Regular rate and rhythm. S1 and S2, without murmurs, gallops, or rubs. VASCULAR: No Edema. Peripheral pulses normal and equal in all extremities. ABDOMEN: Soft, non tender and non distended. No rebound or guarding, and no masses palpated. Bowel Sounds normal. MUSCULOSKELETAL: Good range of motion of all major joints. Extremities without clubbing, cyanosis or edema. NEUROLOGIC EXAM: Alert and oriented x 3 No focal sensory or strength deficits. Speech normal. Follows commands. PSYCHIATRIC: Mood normal. SKIN: detail exam as documented in skin assessment - Constitutional Vitals: Temp Pulse Resp BP Pulse Ox 98.4 F 80 18 133/91 99 08/06/21 05:32 08/06/21 05:32 08/06/21 05:32 08/06/21 05:32 08/06/21 05:32 Plan Activity: advance as tolerated, fall precautions Diet: diabetic, renal Special Instructions: record daily weights, record daily BP diary, record blood sugar diary, smoking cessation Follow up with: PRIMARY CAREMD [Primary Care Provider] - 3-5 Days ROBERT CHOUDHARY MD [Staff Physician] - 7 Days Prescriptions: Gabapentin 100 mg PO Q8HR #90 capsule Insulin Regular, Human [HumuLIN R] 0 unit SQ AC #1 vial Insulin NPH Hum/Reg Insulin Hm [Novolin 70-30 Flexpen] 25 unit SQ BID #10 ml Other Discharge Orders: Glucometer (Amb) Location: None Selected Glucometer supplies[Amb] Location: None Selected
[2021-08-06] MEDS: ASPIRIN 81 MG TAB CHEW PO SCH (10:13)
[2021-08-06] MEDS: INSULIN REGULAR, HUMAN 100 UNITS/1 ML SUB-Q SCH (10:14)
== END 2021-08-06 10:15 | disposition home or self-care (01) | DRG 637 ==
LOC: ED 02:34 → 4A 07:30 → CC1 14:57 → 3A 18:23
PROVIDERS: ADMIT Internal Medicine; ATTEND Internal Medicine
DX: E11.10 Type 2 diabetes mellitus with ketoacidosis without coma (principal); N17.0 Acute kidney failure with tubular necrosis; K31.84 Gastroparesis; E86.0 Dehydration; E11.43 Type 2 diabetes mellitus with diabetic autonomic (poly)neuropathy; E11.319 Type 2 diabetes mellitus with unspecified diabetic retinopathy without macular edema
CPT/HCPCS: 36415; 71045; 80048; 80076; 81001; 82010; 82150; 82962; 83036; 83735; 84100; 85025; 85610; G0378; J3480; J3490; Q0162; Q9967; J1815; J2270; J2405; J2765; J7030

== ENCOUNTER 2021-10-15 16:44 | Emergency (ER) | payer SELFPAY ==
[2021-10-15] MEDS ORDERED: SODIUM CHLORIDE 0.9% 1000 ML IV SOLN IV ONE (17:12)
[2021-10-15] MEDS ORDERED: ONDANSETRON 4 MG/2 ML INJ IV ONE (17:17)
[2021-10-15 18:27] LABS: Basophils # (Auto) 0.1 K/mm3 (0.0-0.1); Basophils % (Auto) 1.1 % (0.0-1.8); Eosinophils # (Auto) 0.6 K/mm3 (0.0-0.4); Eosinophils % (Auto) 8.1 % (0.0-4.3); Hematocrit 30.7 % (35.5-45.6); Hemoglobin 10.5 gm/dl (11.8-15.2); Lymphocytes # (Auto) 1.4 K/mm3 (1.2-5.4); Lymphocytes % (Auto) 20.4 % (13.4-35.0); Mean Corpuscular HGB Conc 34 % (32-34); Mean Corpuscular Volume 95 fl (84-94); Monocytes # (Auto) 0.4 K/mm3 (0.0-0.8); Monocytes % (Auto) 5.5 % (0.0-7.3); Platelet Count 177 K/mm3 (140-440); Red Blood Count 3.23 M/mm3 (3.65-5.03); Red Cell Distribution Width 12.7 % (13.2-15.2)
[2021-10-15 18:48] LABS: Albumin 3.6 g/dL (3.9-5); Calcium 7.8 mg/dL (8.4-10.2)
[2021-10-15] MEDS ORDERED: SODIUM CHLORIDE 0.9% 1000 ML 1,000 ML IV ONE (19:21)
[2021-10-15] MEDS ORDERED: DEXTROSE 50% IN WATER (25GM) 50 ML SYRINGE IV PRN (19:21)
[2021-10-15] MEDS ORDERED: INSULIN REGULAR, HUMAN 100 UNITS/1 ML IV ONE (19:22)
[2021-10-15] MEDS ORDERED: INSULIN REGULAR, HUMAN 100 UNITS in SODIUM CHLORIDE 0.9% 99 ML IV SCH (20:00)
[2021-10-15 20:11] VITALS: BP 173/103
--- NOTE | 2021-10-15 20:55 | Emergency Department Report ---
ED N/V/D HPI - General Chief complaint: Nausea/Vomiting/Diarrhea Stated complaint: N/V/ BUG BITE Time Seen by Provider: 10/15/21 19:08 Source: patient, family Mode of arrival: Ambulatory Limitations: No Limitations - History of Present Illness Initial comments: 40-year-old male with a past medical history of insulin-dependent diabetes with admissions of DKA here in August presents to the hospital with symptoms of DKA. Patient has been feeling sick all day with nausea, vomiting, diarrhea. He states he has been compliant with his insulin. He thinks that the inciting factor was an insect back to his posterior scalp which occurred approximately 4 days ago. He had localized swelling and pruritus and was taking Benadryl. Since the swelling has improved and he has scabbed over. He denies fever. He he currently denies abdominal pain, or dysuria. Patient recently moved here from [place] and does not have a local physician - Related Data Previous Rx's Medication Instructions Recorded Last Taken Type AtorvaSTATin [Lipitor] 40 mg PO QHS #30 tablet 05/20/21 2 Weeks Ago Rx ~07/23/21 Gabapentin 100 mg PO Q8HR #90 capsule 08/06/21 Unknown Rx Insulin NPH Hum/Reg Insulin Hm 25 unit SQ BID #10 ml 08/06/21 Unknown Rx [Novolin 70-30 Flexpen] Insulin Regular, Human [HumuLIN R] 0 unit SQ AC #1 vial 08/06/21 Unknown Rx Allergies Allergy/AdvReac Type Severity Reaction Status Date / Time Sulfa (Sulfonamide Allergy Itching Verified 08/06/21 08:14 Antibiotics) ED Review of Systems ROS: Stated complaint: N/V/ BUG BITE Other details as noted in HPI Comment: All other systems reviewed and negative ED Past Medical Hx - Past Medical History Previous Medical History?: Yes Hx Hypertension: Yes Hx Congestive Heart Failure: No Hx Diabetes: Yes Hx Seizures: Yes Hx Asthma: No Hx COPD: No Hx HIV: No Additional medical history: Gastritis - Surgical History Past Surgical History?: Yes Additional Surgical History: hernia - Social History Smoking Status: Current Every Day Smoker - Medications Home Medications: Home Medications Medication Instructions Recorded Confirmed Last Taken Type AtorvaSTATin [Lipitor] 40 mg PO QHS #30 tablet 05/20/21 08/06/21 2 Weeks Ago Rx ~07/23/21 Gabapentin 100 mg PO Q8HR #90 capsule 08/06/21 Unknown Rx Insulin NPH Hum/Reg Insulin Hm 25 unit SQ BID #10 ml 08/06/21 Unknown Rx [Novolin 70-30 Flexpen] Insulin Regular, Human [HumuLIN R] 0 unit SQ AC #1 vial 08/06/21 Unknown Rx ED Physical Exam - General Limitations: No Limitations - Other Other exam information: General: No acute distress Head: Posterior scalp scab over area of insect bite without erythema or drainage Eyes: normal appearance ENT: Moist mucous membranes Neck: Normal appearance, no midline tenderness Chest: Clear to auscultation bilaterally CV: Regular rate and rhythm Abdomen: Soft, normal bowel sounds, nontender, nondistended, no rebound or guarding Back: Normal inspection Extremity: Normal inspection, full range of motion Neuro: Alert O x 3, no facial asymmetry, speech clear, no gross motor sensory deficit Psych: Appropriate behavior Skin: No rash ED Course Vital Signs 10/15/21 10/15/21 17:02 20:11 Temperature 98.6 F 98.6 F Pulse Rate 92 H 89 Respiratory 15 15 Rate Blood Pressure 113/72 Blood Pressure 173/103 [Left] O2 Sat by Pulse 97 99 Oximetry ED Medical Decision Making - Lab Data Result diagrams: 10/15/21 17:33 10/15/21 17:33 Lab Results 10/15/21 10/15/21 10/15/21 Range/Units 17:09 17:33 17:33 WBC 6.9 (4.5-11.0) K/mm3 RBC 3.23 L (3.65-5.03) M/mm3 Hgb 10.5 L (11.8-15.2) gm/dl Hct 30.7 L (35.5-45.6) % MCV 95 H (84-94) fl MCH 32 (28-32) pg MCHC 34 (32-34) % RDW 12.7 L (13.2-15.2) % Plt Count 177 (140-440) K/mm3 Lymph % (Auto) 20.4 (13.4-35.0) % [place] % (Auto) 5.5 (0.0-7.3) % Eos % (Auto) 8.1 H (0.0-4.3) % Baso % (Auto) 1.1 (0.0-1.8) % Lymph # (Auto) 1.4 (1.2-5.4) K/mm3 [place] # (Auto) 0.4 (0.0-0.8) K/mm3 Eos # (Auto) 0.6 H (0.0-0.4) K/mm3 Baso # (Auto) 0.1 (0.0-0.1) K/mm3 Seg Neutrophils % 64.9 (40.0-70.0) % Seg Neutrophils # 4.5 (1.8-7.7) K/mm3 VBG pH (7.320-7.420) Sodium 120 L (137-145) mmol/L Potassium 5.5 H (3.6-5.0) mmol/L Chloride 87.0 L (98-107) mmol/L Carbon Dioxide 23 (22-30) mmol/L Anion Gap 16 mmol/L BUN 22 H (9-20) mg/dL Creatinine 2.0 H (0.8-1.3) mg/dL Estimated GFR 45 ml/min BUN/Creatinine Ratio 11 % Glucose 820 H* (75-100) mg/dL POC Glucose > 600 H (70-105) mg/dL Calcium 7.8 L (8.4-10.2) mg/dL Total Bilirubin 0.20 (0.1-1.2) mg/dL AST 14 (5-40) units/L ALT 14 (7-56) units/L Alkaline Phosphatase 119 (35-129) units/L Total Protein 6.4 (6.3-8.2) g/dL Albumin 3.6 L (3.9-5) g/dL Albumin/Globulin Ratio 1.3 % Lipase (13-60) units/L 10/15/21 10/15/21 10/15/21 Range/Units 17:33 17:33 20:05 WBC (4.5-11.0) K/mm3 RBC (3.65-5.03) M/mm3 Hgb (11.8-15.2) gm/dl Hct (35.5-45.6) % MCV (84-94) fl MCH (28-32) pg MCHC (32-34) % RDW (13.2-15.2) % Plt Count (140-440) K/mm3 Lymph % (Auto) (13.4-35.0) % [place] % (Auto) (0.0-7.3) % Eos % (Auto) (0.0-4.3) % Baso % (Auto) (0.0-1.8) % Lymph # (Auto) (1.2-5.4) K/mm3 [place] # (Auto) (0.0-0.8) K/mm3 Eos # (Auto) (0.0-0.4) K/mm3 Baso # (Auto) (0.0-0.1) K/mm3 Seg Neutrophils % (40.0-70.0) % Seg Neutrophils # (1.8-7.7) K/mm3 VBG pH 7.254 L (7.320-7.420) Sodium (137-145) mmol/L Potassium (3.6-5.0) mmol/L Chloride (98-107) mmol/L Carbon Dioxide (22-30) mmol/L Anion Gap mmol/L BUN (9-20) mg/dL Creatinine (0.8-1.3) mg/dL Estimated GFR ml/min BUN/Creatinine Ratio % Glucose (75-100) mg/dL POC Glucose > 600 H (70-105) mg/dL Calcium (8.4-10.2) mg/dL Total Bilirubin (0.1-1.2) mg/dL AST (5-40) units/L ALT (7-56) units/L Alkaline Phosphatase (35-129) units/L Total Protein (6.3-8.2) g/dL Albumin (3.9-5) g/dL Albumin/Globulin Ratio % Lipase 81 H (13-60) units/L - Medical Decision Making Patient in DKA with acute renal insufficiency. Patient informed he will need admission to the hospital ICU and further treatment. Patient then became upset stating he cannot afford to stay because he is a single parent and no one understands and will help him. He states he has to go to work and cannot miss any days. I offered him admission for treatment until he has to leave in the morning so that we may have at least partial correction of his acidosis and glucose level prior to him signing out against medical vice in the a.m. I attempted to offer this several times to the patient and he became more belligerent insisting that he just wants to go now and no longer wants to stay in the ER for treatment. He received IV fluids initiation of insulin drip x1 hour without bolus prior to leaving the ED. patient informed that his decision can lead to coma and Critical Care Time: Yes Critical care time in (mins) excluding proc time.: 35 Critical care attestation.: If time is entered above; I have spent that time in minutes in the direct care of this critically ill patient, excluding procedure time. ED Disposition Clinical Impression: DKA (diabetic ketoacidosis), KARLO (acute kidney injury) Disposition: 07 LEFT AGAINST MEDICAL ADVICE Is pt being admited?: No Condition: Stable Instructions: Diabetic Ketoacidosis (ED), Hyperglycemia, [id number], Acute K idney Injury, Adult Additional Instructions: You are leaving AGAINST MEDICAL ADVICE. You had DKA or diabetic ketoacidosis which is life-threatening and will result in coma and if it is untreated. Since you declined admission today you were offered the opportunity to stay in the ER for treatment with IV insulin and saline until you had to leave in the morning. You have declined this option as well. You have received very little treatment for your DKA in the ER and you will worsen without appropriate treatment. Please return if symptoms worsen to complete your treatment Forms: AMA Form Time of Disposition: 20:50
== END 2021-10-15 20:57 | disposition left against medical advice (07) ==
LOC: ED 16:44
DX: E11.10 Type 2 diabetes mellitus with ketoacidosis without coma (principal); N17.9 Acute kidney failure, unspecified; I10 Essential (primary) hypertension; F17.200 Nicotine dependence, unspecified, uncomplicated; Z88.2 Allergy status to sulfonamides; Z79.899 Other long term (current) drug therapy
CPT/HCPCS: 36415; 80053; 82805; 82962; 83690; 85025; 96361; 96365; 96375; 99283; J2405; J7030; Q0162; Q9967; J1815

== ENCOUNTER 2021-11-10 10:26 | Emergency (ER) | payer SELFPAY ==
[2021-11-10] MEDS ORDERED: SODIUM CHLORIDE 0.9% 1000 ML 1,000 ML IV ONE ×2 (20:47→23:50)
[2021-11-10] MEDS ORDERED: ONDANSETRON 4 MG/2 ML INJ IV ONE (20:47)
[2021-11-10] MEDS ORDERED: ACETAMINOPHEN 325 MG TAB PO ONE (20:48)
[2021-11-10] MEDS ORDERED: PANTOPRAZOLE 40 MG INJ IV ONE (20:48)
--- NOTE | 2021-11-10 20:49 | Emergency Department Report ---
<OTILIA HOWARD - Last Filed: 11/10/21 23:54> ED General Adult HPI - General Chief complaint: Weakness Stated complaint: ABD PAIN VOMITING/RT SIDE NUMBNESS Time Seen by Provider: 11/10/21 20:19 Source: patient, RN notes reviewed, old records reviewed Mode of arrival: Ambulatory Limitations: No Limitations - History of Present Illness Initial comments: The patient is a 41-year-old gentleman, with a history of diabetes, diabetic ketoacidosis, possible hyperlipidemia,, history of hypertension, possible gastritis, presenting to the ER today with complaints of right lower quadrant abdominal pain, with nausea, vomiting diarrhea. He also endorses right fingertip numbness and right forearm numbness, and right leg numbness. Right leg numbness and weakness has been present for 4 months. However, he feels like his numbness and weakness is worse over the past 5 days. Right upper extremity numbness and possible weakness presents over the past 48 hours as well. -: days(s) Location: right, upper extremity, lower extremity Quality: aching Consistency: constant Improves with: none Worsens with: eating - Related Data Previous Rx's Medication Instructions Recorded Last Taken Type AtorvaSTATin [Lipitor] 40 mg PO QHS #30 tablet 05/20/21 2 Weeks Ago Rx ~07/23/21 Gabapentin 100 mg PO Q8HR #90 capsule 08/06/21 Unknown Rx Insulin NPH Hum/Reg Insulin Hm 25 unit SQ BID #10 ml 08/06/21 Unknown Rx [Novolin 70-30 Flexpen] Insulin Regular, Human [HumuLIN R] 0 unit SQ AC #1 vial 08/06/21 Unknown Rx Allergies Allergy/AdvReac Type Severity Reaction Status Date / Time Sulfa (Sulfonamide Allergy Itching Verified 08/06/21 08:14 Antibiotics) ED Review of Systems Constitutional: denies: fever Eyes: denies: eye discharge ENT: denies: epistaxis Respiratory: denies: cough Cardiovascular: denies: chest pain Gastrointestinal: abdominal pain, nausea, vomiting Genitourinary: denies: dysuria Neurological: weakness, numbness Hematological/Lymphatic: denies: easy bleeding ED Past Medical Hx - Past Medical History Hx Hypertension: Yes Hx Congestive Heart Failure: No Hx Diabetes: Yes Hx Seizures: Yes Hx Asthma: No Hx COPD: No Hx HIV: No Additional medical history: Gastritis - Surgical History Additional Surgical History: hernia - Social History Smoking Status: Current Every Day Smoker - Medications Home Medications: Home Medications Medication Instructions Recorded Confirmed Last Taken Type AtorvaSTATin [Lipitor] 40 mg PO QHS #30 tablet 05/20/21 08/06/21 2 Weeks Ago Rx ~07/23/21 Gabapentin 100 mg PO Q8HR #90 capsule 08/06/21 Unknown Rx Insulin NPH Hum/Reg Insulin Hm 25 unit SQ BID #10 ml 08/06/21 Unknown Rx [Novolin 70-30 Flexpen] Insulin Regular, Human [HumuLIN R] 0 unit SQ AC #1 vial 08/06/21 Unknown Rx ED Physical Exam - General Limitations: Physical Limitation General appearance: alert, in no apparent distress - Head Head exam: Present: atraumatic, normocephalic - Eye Eye exam: Present: normal appearance, EOMI. Absent: nystagmus - ENT ENT exam: Present: normal exam, normal orophraynx, mucous membranes moist, normal external ear exam - Neck Neck exam: Present: normal inspection, full ROM. Absent: tenderness, meningismus - Respiratory Respiratory exam: Present: normal lung sounds bilaterally. Absent: respiratory distress, wheezes, rales, rhonchi, stridor, decreased breath sounds - Cardiovascular Cardiovascular Exam: Present: regular rate, normal rhythm, normal heart sounds. Absent: bradycardia, tachycardia, irregular rhythm, systolic murmur, diastolic murmur, rubs, gallop - GI/Abdominal GI/Abdominal exam: Present: soft, tenderness. Absent: distended, guarding, rebound, rigid, pulsatile mass - Rectal Rectal exam: Present: deferred - Extremities Exam Extremities exam: Present: normal inspection, full ROM, other (2+ pulses noted in the bilateral upper and lower extremities. There is no palpable cord. negative Homans sign. Muscular compartments are soft. The pelvis is stable.). Absent: calf tenderness - Back Exam Back exam: Present: normal inspection. Absent: tenderness, CVA tenderness (R), CVA tenderness (L), paraspinal tenderness, vertebral tenderness - Neurological Exam Neurological exam: Present: alert, oriented X3, motor sensory deficit (There is decreased sensation to light touch right arm and right leg. There is 4/5 strength right arm. There is 4/5 strength right leg), other (There is no facial droop. Tongue is midline. EOMI. 5/5 strength in left arm and left leg.) - Psychiatric Psychiatric exam: Present: anxious - Skin Skin exam: Present: warm, dry, intact, normal color. Absent: rash ED Course - Reevaluation(s) Reevaluation #1: 11/10/21 21:24 Differential diagnosis, including not limited to: Appendicitis, DKA, UTI, renal colic, peripheral neuropathy, subacute stroke Assessment and plan: 40-year-old gentleman, presenting approximately 2 days after last known well time, tPA not indicated, emergency CT angiogram head and neck not necessary, given limited more than 24 hours since last known well time, also with right leg and arm weakness and numbness, and concomitant right lower extremity pain, with nausea vomiting diarrhea. Place patient on bottom brusher. Obtain appropriate laboratory studies. Obtain noncontrast CT scan of the brain, and CT scan of the abdomen pelvis. Treat symptoms supportively and symptomatically. Reassess. 11/10/21 23:36 Patient has experienced a significant delay in disposition, secondary to prolonged time to acquire his laboratory studies, and to further results of his chemistry. Thus far, CT scan of the brain, and CT scan abdomen pelvis have not been obt ained, secondary to food technologist awaiting renal function, appropriately so. Care was transferred to the oncoming ER physician, Dr. Caterina Carreno, to follow-up on remainder of laboratory studies, CT scan of the brain, CT scan of the abdomen pelvis. Reevaluation #2: 11/10/21 23:50 Laboratory studies demonstrate hyperglycemia, pseudohyponatremia, mildly elevated potassium, likely transcellular shift secondary to hyperglycemia and dehydration, anion gap of 19, venous pH within normal limits. IV fluids ordered, insulin ordered. Care was transferred to the oncoming ER physician, to follow-up on CT scans. Anticipate admission to the medical service. Reevaluation #3: 11/10/21 23:54 I discussed the patient's history, physical, laboratory studies and pending imaging studies with the hospital physician, Dr. Christian Cr He request call back once diagnostic studies have resulted. ED Medical Decision Making - Lab Data Result diagrams: 11/10/21 22:33 11/10/21 22:33 Vital Signs 11/10/21 11/10/21 11/10/21 10:35 20:50 21:02 Temperature 98.7 F 98.9 F Pulse Rate 98 H 97 H Respiratory 18 16 18 Rate Blood Pressure 119/78 139/90 [Left] O2 Sat by Pulse 100 99 Oximetry - EKG Data -: EKG Interpreted by Nd EKG shows normal: sinus rhythm Rate: normal - EKG Data 11/10/21 21:23 The EKG is interpreted at 20: 49 Sinus rhythm, 96 bpm. Normal axis, normal intervals, high left ventricular voltage, QTC 4 3 4 ms. This is not a STEMI - Radiology Data Radiology results: pending ED Disposition Clinical Impression: Hyperglycemia, Dehydration Disposition: HOME / SELF CARE / HOMELESS Condition: Good Additional Instructions: Increase your daily fluid to help your hydration Even though you reported that you did not want to be admitted to the hospital if your symptoms worsen do not hesitate to call or return to emergency room and you will be reevaluated and treated In the meantime continue to take your medication as prescribed by your primary doctor to help your symptoms <MONI CARRENO - Last Filed: 11/11/21 03:15> ED Review of Systems ROS: Stated complaint: ABD PAIN VOMITING/RT SIDE NUMBNESS Other details as noted in HPI ED Course Vital Signs 11/10/21 11/10/21 11/10/21 10:35 20:43 20:45 Temperature 98.7 F Pulse Rate 98 H 101 H 99 H Respiratory 18 13 14 Rate Blood Pressure 139/90 Blood Pressure 119/78 [Left] O2 Sat by Pulse 100 98 98 Oximetry 11/10/21 11/10/21 11/10/21 20:50 21:01 21:02 Temperature 98.9 F Pulse Rate 97 H 85 Respiratory 16 15 18 Rate Blood Pressure 141/94 Blood Pressure 139/90 [Left] O2 Sat by Pulse 99 99 Oximetry 11/10/21 11/10/21 11/10/21 21:15 21:31 21:33 Temperature Pulse Rate 91 H 91 H 110 H Respiratory 13 14 17 Rate Blood Pressure 154/97 154/104 154/104 Blood Pressure [Left] O2 Sat by Pulse 98 98 97 Oximetry 11/10/21 11/10/21 11/10/21 21:45 22:01 22:02 Temperature Pulse Rate 98 H 90 Respiratory 12 15 18 Rate Blood Pressure 149/90 130/82 Blood Pressure [Left] O2 Sat by Pulse 98 99 Oximetry 11/10/21 11/10/21 11/10/21 22:15 22:45 23:00 Temperature Pulse Rate 91 H 83 81 Respiratory 12 13 12 Rate Blood Pressure 147/94 140/89 122/79 Blood Pressure [Left] O2 Sat by Pulse 99 97 97 Oximetry 11/10/21 11/10/21 11/11/21 23:16 23:30 00:23 Temperature Pulse Rate 79 81 91 H Respiratory 12 12 Rate Blood Pressure 113/74 Blood Pressure [Left] O2 Sat by Pulse 98 98 98 Oximetry 11/11/21 11/11/21 11/11/21 00:30 00:46 01:00 Temperature Pulse Rate 86 94 H 93 H Respiratory 12 12 Rate Blood Pressure 137/91 137/91 137/90 Blood Pressure [Left] O2 Sat by Pulse 99 100 99 Oximetry 11/11/21 01:16 Temperature Pulse Rate 85 Respiratory Rate Blood Pressure 136/85 Blood Pressure [Left] O2 Sat by Pulse 100 Oximetry - Reevaluation(s) Reevaluation #4: 11/11/21 02:57 I am to follow up on the CT head and the abd/pel -- which was resulted to be without any acute findings. Dr Cr, hospitalist consulted and updated with this findings and he accept [pt for further evaluation and treatment. Reevaluation #5: 11/11/21 03:00 As well getting ready to have this patient admitted, Dr Cr when into patient room to evaluate him and admit him but he told him that he absolutely do not wa nt to be admitted. Pt could not be persuaded to stay so will d/c home with warnings to return to ED if symptoms worsen and close follow up with his PCP. 11/11/21 03:02 Given another 10 units of insulin before discharge. ED Medical Decision Making - Lab Data Result diagrams: 11/10/21 22:33 11/10/21 22:33 Critical care attestation.: If time is entered above; I have spent that time in minutes in the direct care of this critically ill patient, excluding procedure time. ED Disposition Is pt being admited?: No Does the pt Need Aspirin: No
[2021-11-10 21:54] LABS: Bilirubin,Urine NEG (Negative); Blood,Urine NEG (Negative); Color,Urine Colorless (Yellow); Protein,Urine <15 mg/dL mg/dL (Negative); Urobilinogen,Urine < 2.0 mg/dL (<2.0); WBC,Urine < 1.0 /HPF (0.0-6.0)
[2021-11-10 22:46] LABS: Basophils % (Auto) 0.6 % (0.0-1.8); Eosinophils # (Auto) 0.4 K/mm3 (0.0-0.4); Eosinophils % (Auto) 5.6 % (0.0-4.3); Hematocrit 30.3 % (35.5-45.6); Hemoglobin 9.8 gm/dl (11.8-15.2); Lymphocytes # (Auto) 1.1 K/mm3 (1.2-5.4); Lymphocytes % (Auto) 16.2 % (13.4-35.0); Mean Corpuscular HGB Conc 32 % (32-34); Mean Corpuscular Volume 96 fl (84-94); Monocytes # (Auto) 0.4 K/mm3 (0.0-0.8); Monocytes % (Auto) 5.9 % (0.0-7.3); Platelet Count 172 K/mm3 (140-440); Red Blood Count 3.15 M/mm3 (3.65-5.03); Red Cell Distribution Width 13.6 % (13.2-15.2)
[2021-11-10 23:07] LABS: INR 0.84 (0.87-1.13)
[2021-11-10 23:46] LABS: Alanine Aminotransferase 19 units/L (7-56); Albumin 3.7 g/dL (3.9-5); BUN/Creatinine Ratio 15; Blood Urea Nitrogen 23 mg/dL (9-20); Calcium 7.7 mg/dL (8.4-10.2); Hemolysis Index 4
[2021-11-10] MEDS ORDERED: INSULIN REGULAR, HUMAN 100 UNITS/1 ML IV ONE (23:49)
--- NOTE | 2021-11-11 00:26 | Cat Scan Report ---
CT HEAD WITHOUT CONTRAST INDICATION / CLINICAL INFORMATION: RIGHT sided numbness for a few days. TECHNIQUE: All CT scans at this location are performed using CT dose reduction for ALARA by means of automated exposure control. COMPARISON: None available. FINDINGS: HEMORRHAGE: None. EXTRA-AXIAL SPACES: Normal in size and morphology for the patient's age. VENTRICULAR SYSTEM: Normal in size and morphology for the patient's age. CEREBRAL PARENCHYMA: No significant abnormality. No acute territorial infarct. MIDLINE SHIFT / HERNIATION: None. CEREBELLUM / BRAINSTEM: No significant abnormality. ORBITS: Normal as visualized SOFT TISSUES: No significant abnormality. SKULL: No significant abnormality. PARANASAL SINUSES / MASTOID AIR CELLS: Normal as visualized ADDITIONAL FINDINGS: None. IMPRESSION: 1. No acute intracranial abnormality. Signer Name: Sonido Juarez DO Signed: 11/11/2021 12:22 AM Workstation Name: [id number]
--- NOTE | 2021-11-11 00:32 | Cat Scan Report ---
CT ABDOMEN AND PELVIS WITH CONTRAST INDICATION / CLINICAL INFORMATION: R.L.Q. abdominal pain with N/V/D. TECHNIQUE: Axial CT images were obtained through the abdomen and pelvis after 100 cc of Omnipaque [address] scans at this location are performed using CT dose reduction for ALARA by means of automated exposure control. COMPARISON: 05/19/2021 FINDINGS: LOWER CHEST: No significant abnormality. AORTA / ARTERIES: No significant abnormality. IVC / VEINS: No significant abnormality. LYMPH NODES: No significant adenopathy. COLON: No significant abnormality. APPENDIX: Not visualized. STOMACH / SMALL BOWEL: No significant abnormality. PERITONEUM: Trace free fluid within the pelvis. No free air. No fluid collection. LIVER: No significant abnormality. GALLBLADDER: No significant abnormality. BILE DUCTS: No significant abnormality. PANCREAS: No significant abnormality. SPLEEN: No significant abnormality. ADRENALS: No significant abnormality. RIGHT KIDNEY / URETER: No significant abnormality. LEFT KIDNEY / URETER: No significant abnormality. URINARY BLADDER: No significant abnormality. REPRODUCTIVE ORGANS: No significant abnormality. SKELETAL SYSTEM: No significant abnormality. ADDITIONAL FINDINGS: None. IMPRESSION: 1. The appendix is not well seen. There is small amount of fluid within the pelvis, otherwise no seco ndary signs of appendicitis. Signer Name: Sonido Juarez DO Signed: 11/11/2021 12:27 AM Workstation Name: [id number]
[2021-11-11] MEDS ORDERED: INSULIN REGULAR, HUMAN 100 UNITS/1 ML IV ONE (03:03)
[2021-11-11 04:43] VITALS: BP 103/69
== END 2021-11-11 04:35 | disposition home or self-care (01) ==
LOC: ED 10:26
DX: E11.65 Type 2 diabetes mellitus with hyperglycemia (principal); E86.0 Dehydration; I10 Essential (primary) hypertension; R51.9 Headache, unspecified; F17.200 Nicotine dependence, unspecified, uncomplicated; Z79.899 Other long term (current) drug therapy; Z88.2 Allergy status to sulfonamides; Z79.4 Long term (current) use of insulin
CPT/HCPCS: 36415; 70450; 74177; 80053; 81001; 82550; 82805; 82962; 83735; 84443; 84484; 85025; 85610; 93005; 96361; 96374; 96375; 96376; 99284; C9113; J2405; J7030; Q9967; J1815

== ENCOUNTER 2021-11-12 10:59 | Emergency (ER) | payer SELFPAY ==
[2021-11-12] MEDS ORDERED: INSULIN REGULAR, HUMAN 100 UNITS/1 ML IV ONE (11:27)
[2021-11-12] MEDS ORDERED: SODIUM CHLORIDE 0.9% 1000 ML 1,000 ML IV ONE ×4 (11:27→18:52)
[2021-11-12] MEDS ORDERED: ONDANSETRON 4 MG/2 ML INJ IV ONE (11:27)
[2021-11-12] MEDS ORDERED: MORPHINE 4 MG/1 ML INJ IV ONE (12:05)
[2021-11-12] MEDS ORDERED: FAMOTIDINE 20 MG/2 ML INJ IV ONE (12:05)
[2021-11-12 12:27] LABS: Albumin 4.2 g/dL (3.9-5); Basophils % (Auto) 0.3 % (0.0-1.8); Calcium 9.2 mg/dL (8.4-10.2); Eosinophils % (Auto) 0.2 % (0.0-4.3); Hemoglobin 10.2 gm/dl (11.8-15.2); Lymphocytes # (Auto) 0.6 K/mm3 (1.2-5.4); Lymphocytes % (Auto) 6.9 % (13.4-35.0); Mean Corpuscular HGB Conc 33 % (32-34); Mean Corpuscular Volume 94 fl (84-94); Monocytes # (Auto) 0.3 K/mm3 (0.0-0.8); Monocytes % (Auto) 3.1 % (0.0-7.3); Platelet Count 193 K/mm3 (140-440); Red Cell Distribution Width 13.3 % (13.2-15.2)
--- NOTE | 2021-11-12 12:34 | Emergency Department Report ---
ED General Adult HPI - General Chief complaint: Seizure Stated complaint: POSSIBLE DKA/SEIZURE Time Seen by Provider: 11/12/21 11:14 Source: EMS Mode of arrival: Stretcher Limitations: No Limitations - History of Present Illness Initial comments: 40-year-old male with a past medical history of insulin-dependent diabetes with admissions of DKA presents to the hospital complaining of hyperglycemia, nausea, vomiting, generalized abdominal pain, and fatigue. As per triage EMS reported that patient was having seizures however, I spoke to nurses in the department who witnessed episode. Patient was apparently having intermittent tremulous activity with speaking throughout episodes. Patient intermittently writhing around with discomfort and has had urinary incontinence. He is somewhat sedated and slow to answer questions. He was here 2 days ago and received ED work-up including labs, CT head, and abdomen pelvis with recommendation for admission. Patient signed out AGAINST MEDICAL ADVICE at that time. Patient has signed out in the past multiple times because he has to take care of his children. He states he felt like he was good enough to be discharged last time. He now is states he is agreeable for admission. He states he is compliant with his medications Severity scale (0 -10): 10 - Related Data Previous Rx's Medication Instructions Recorded Last Taken Type AtorvaSTATin [Lipitor] 40 mg PO QHS #30 tablet 05/20/21 2 Weeks Ago Rx ~07/23/21 Gabapentin 100 mg PO Q8HR #90 capsule 08/06/21 Unknown Rx Insulin NPH Hum/Reg Insulin Hm 25 unit SQ BID #10 ml 08/06/21 Unknown Rx [Novolin 70-30 Flexpen] Insulin Regular, Human [HumuLIN R] 0 unit SQ AC #1 vial 08/06/21 Unknown Rx Allergies Allergy/AdvReac Type Severity Reaction Status Date / Time Sulfa (Sulfonamide Allergy Itching Verified 08/06/21 08:14 Antibiotics) ED Review of Systems ROS: Stated complaint: POSSIBLE DKA/SEIZURE Other details as noted in HPI Comment: All other systems reviewed and negative ED Past Medical Hx - Past Medical History Previous Medical History?: Yes Hx Hypertension: Yes Hx Congestive Heart Failure: No Hx Diabetes: Yes Hx Seizures: Yes Hx Asthma: No Hx COPD: No Hx HIV: No Additional medical history: Gastritis - Surgical History Additional Surgical History: hernia - Social History Smoking Status: Current Every Day Smoker - Medications Home Medications: Home Medications Medication Instructions Recorded Confirmed Last Taken Type AtorvaSTATin [Lipitor] 40 mg PO QHS #30 tablet 05/20/21 08/06/21 2 Weeks Ago Rx ~07/23/21 Gabapentin 100 mg PO Q8HR #90 capsule 08/06/21 Unknown Rx Insulin NPH Hum/Reg Insulin Hm 25 unit SQ BID #10 ml 08/06/21 Unknown Rx [Novolin 70-30 Flexpen] Insulin Regular, Human [HumuLIN R] 0 unit SQ AC #1 vial 08/06/21 Unknown Rx ED Physical Exam - General Limitations: No Limitations - Other Other exam information: General: Moderate distress Head: Atraumatic Eyes: normal appearance ENT: Dry mucous membrane Neck: Normal appearance, no midline tenderness Chest: Clear to auscultation bilaterally CV: Regular rate and rhythm Abdomen: Soft, normal bowel sounds, nontender, nondistended, no rebound or g uarding Back: Normal inspection Extremity: Normal inspection, full range of motion Neuro: Alert, lethargic, equal handgrip and foot dorsiflexion Psych: Appropriate behavior Skin: No rash ED Course Vital Signs 11/12/21 11/12/21 11/12/21 11:15 13:04 13:08 Temperature 97.0 F L Pulse Rate 82 79 Respiratory 15 21 Rate Blood Pressure 161/100 Blood Pressure 207/101 [Left] O2 Sat by Pulse 96 98 100 Oximetry 11/12/21 11/12/21 13:30 13:51 Temperature Pulse Rate 86 70 Respiratory 17 Rate Blood Pressure 164/98 Blood Pressure [Left] O2 Sat by Pulse 98 Oximetry ED Medical Decision Making - Lab Data Result diagrams: 11/12/21 11:43 11/12/21 11:43 - EKG Data -: EKG Interpreted by Vt EKG shows normal: sinus rhythm, ST-T waves (no stemi, lvh) Rate: normal - Medical Decision Making 40 yo male with hyperglycemia, n,v, and ill appearing with decreased mental status. mild acidosis noted as per ph with hyperglycemia, patient has an anion gap of 22 with a normal bicarb noted on bmp. worsening renal function and dehydration noted. ct head and abd pelvis unremarkable 2 days ago. - Differential Diagnosis dka, dehydration, intra-abdominal infection, encephalopathy, Critical care attestation.: If time is entered above; I have spent that time in minutes in the direct care of this critically ill patient, excluding procedure time. ED Disposition Clinical Impression: Hyperglycemia, KARLO (acute kidney injury), Nausea & vomiting, Acute encephalopathy Disposition: 09 ADMITTED INPATIENT Is pt being admited?: Yes Condition: Stable Referrals: PRIMARY CARE,MD [Primary Care Provider] - 3-5 Days
[2021-11-12] MEDS ORDERED: INSULIN NPH/REGULAR 70/30 INJ SUB-Q ONE (14:32)
[2021-11-12] MEDS ORDERED: diphenhydrAMINE 50 MG/ML VIAL IV ONE (14:34)
[2021-11-12] MEDS ORDERED: METOCLOPRAMIDE 10 MG/2 ML INJ IV ONE (14:34)
--- NOTE | 2021-11-12 14:40 | Consultation ---
History of Present Illness - Reason for Consult Consult date: 11/12/21 Diabetes Requesting physician: MURIEL MELENDREZ - History of Present Illness 40 YO Male with DM, Medication Noncompliance, HTN, HLD, Nicotine Dependence presents ED for evaluation. Consult placed for hyperglycemia. Patient seen and evaluated in the emergency department. All lab and imaging studies reviewed. Patient found to have elevated serum glucose levels which normalized with IV fluid resuscitation therapy and resumption of insulin therapy. Patient knowledges running out of his insulin at home. Patient acknowledges medication noncompliance. Patient symptoms resolved with therapy. Patient medically optimized and back to usual state of health. Patient ambulating and back to baseline level of function. Patient medically optimized and discharged home and instructed to follow-up with primary care physician in 3 to 5 days. Patient counseled regarding consistent carbohydrate diet and given prescription for Novolin 70/30 which patient states that he is able to afford due to cost. Patient counseled regarding smoking cessation. Past History Past Medical History: diabetes, hypertension Past Surgical History: No surgical history, Other (Reviewed) Social history: single, smoking Family history: diabetes, hypertension Medications and Allergies Allergies Allergy/AdvReac Type Severity Reaction Status Date / Time Sulfa (Sulfonamide Allergy Itching Verified 08/06/21 08:14 Antibiotics) Home Medications Medication Instructions Recorded Confirmed Last Taken Type AtorvaSTATin [Lipitor] 40 mg PO QHS #30 tablet 05/20/21 08/06/21 2 Weeks Ago Rx ~07/23/21 Gabapentin 100 mg PO Q8HR #90 capsule 08/06/21 Unknown Rx Insulin NPH Hum/Reg Insulin Hm 25 unit SQ BID #10 ml 08/06/21 Unknown Rx [Novolin 70-30 Flexpen] Insulin Regular, Human [HumuLIN R] 0 unit SQ AC #1 vial 08/06/21 Unknown Rx Insulin NPH/Regular [Novolin 70/30] 15 unit SUB-Q TID #1 vial 11/12/21 Unknown Rx Review of Systems Constitutional: no weight loss, no weight gain, no fever, no chills Ears, nose, mouth and throat: no ear pain, no tinnitis, no decreased hearing, no nasal congestion, no sinus pressure Cardiovascular: no chest pain, no orthopnea Respiratory: no cough, no excessive sputum, no shortness of breath Gastrointestinal: nausea, no vomiting, no diarrhea, no change in bowel habits, no hematemesis Genitourinary Male: no hematuria, no flank pain, no discharge, no urinary hesitancy, no nocturia Rectal: no pain, no incontinence, no bleeding Musculoskeletal: no neck stiffness, no neck pain, no low back pain Integumentary: no rash, no pruritis Neurological: no head injury, no paralysis, no numbness, no tingling, no tremors Psychiatric: no anxiety, no change in sleep habits, no insomnia, no change in appetite, no change in libido, no suicidal ideation, no disorientation Endocrine: no cold intolerance, no polyphagia, no polydipsia, no polyuria, no excessive sweating Hematologic/Lymphatic: no easy bruising Exam - Constitutional Vitals: Temp Pulse Resp BP Pulse Ox 97.0 F L 70 17 164/98 98 11/12/21 11:15 11/12/21 13:51 11/12/21 13:30 11/12/21 13:30 11/12/21 13:30 General appearance: Present: no acute distress, well-nourished - EENT Eyes: Present: PERRL ENT: hearing intact, clear oral mucosa - Neck Neck: Present: supple, normal ROM - Respiratory Respiratory effort: normal Respiratory: bilateral: CTA - Cardiovascular Heart Sounds: Present: S1 & S2. Absent: rub, click - Extremities Extremities: pulses symmetrical, No edema Peripheral Pulses: within normal limits - Abdominal General gastrointestinal: Present: soft, non-tender, non-distended, normal bowel sounds Male genitourinary: Present: normal - Integumentary Integumentary: Present: clear, warm, dry - Musculoskeletal Musculoskeletal: gait normal, strength equal bilaterally - Psychiatric Psychiatric: appropriate mood/affect, intact judgment & insight - Neurologic Neurologic: CNII-XII intact, moves all extremities Results - Labs CBC & Chem 7: 11/12/21 11:43 11/12/21 11:43 Labs: Abnormal lab results 11/12/21 11/12/21 11/12/21 Range/Units 11:43 11:43 11:43 RBC 3.30 L (3.65-5.03) M/mm3 Hgb 10.2 L (11.8-15.2) gm/dl Hct 31.0 L (35.5-45.6) % Lymph % (Auto) 6.9 L (13.4-35.0) % Lymph # (Auto) 0.6 L (1.2-5.4) K/mm3 Seg Neutrophils % 89.5 H (40.0-70.0) % VBG pH 7.299 L (7.320-7.420) Sodium 135 L (137-145) mmol/L Chloride 93.3 L (98-107) mmol/L BUN 25 H (9-20) mg/dL Creatinine 1.8 H (0.8-1.3) mg/dL Glucose 705 H* (75-100) mg/dL Phosphorus 4.80 H (2.5-4.5) mg/dL Magnesium 2.60 H (1.7-2.3) mg/dL Assessment and Plan - Patient Problems (1) Diabetes mellitus Status: Acute Plan to address problem: Patient treated with IV fluid resuscitation therapy, insulin protocol. Patient blood glucose normalized. Patient hyperglycemic due to medication noncompliance. Patient discharged home with Novolin 70/30. Patient acknowledges able to afford this medication. Patient instructed to follow-up primary care physician in 3 to 5 days with blood glucose log. (2) Volume depletion Status: Acute Plan to address problem: IV fluid resuscitation therapy. Patient since normalized with infusion of IV fluid therapy. (3) Noncompliance Status: Acute Plan to address problem: Patient counseled regarding medication noncompliance. Patient informed of his crease of worsening symptoms if continued noncompliance. Patient acknowledges understanding instructions. (4) Hypertension Status: Acute Qualifiers: Hypertension type: primary hypertension Qualified Code(s): I10 - Essential (primary) hypertension Plan to address problem: Monitor pressure every shift. Continue prehospital antihypertensive therapy. Follow-up with primary care physician in 3 to 5 days.
[2021-11-12 18:05] VITALS: BP 172/103
--- NOTE | 2021-11-17 18:22 | Electrocardiograph Report ---
[facility] Test Date: 2021-11-12 Test Time: 13:40:23 Pat Name: MANISH CELESTE Department: Room: Gender: M Dispatch Associate: CYNDY : 1980 Requested By: MURIEL MELENDREZ Order Number: [id number] Reading MD: Elaine Small Measurements Intervals [place] Rate: 70 P: 82 TX: 151 QRS: 69 QRSD: 75 T: 54 QT: 401 QTc: 432 Interpretive Statements Sinus arrhythmia Consider left ventricular hypertrophy Compared to ECG 11/10/2021 20:49:53 Sinus rate has slowed Electronically Signed On 11-17-2021 18:22:19 EDT by Elaine Small
== END 2021-11-12 19:46 | disposition home or self-care (01) ==
LOC: ED 10:59
DX: E11.65 Type 2 diabetes mellitus with hyperglycemia (principal); R10.84 Generalized abdominal pain; R11.2 Nausea with vomiting, unspecified; N17.9 Acute kidney failure, unspecified; G93.40 Encephalopathy, unspecified; F17.200 Nicotine dependence, unspecified, uncomplicated; I10 Essential (primary) hypertension; Z88.2 Allergy status to sulfonamides
CPT/HCPCS: 36415; 80053; 82805; 82962; 83690; 83735; 84100; 85025; 93005; 96361; 96374; 96375; 99284; J1200; J2270; J2405; J2765; J3490; J7030; Q0177; Q9967; J1815

== ENCOUNTER 2022-01-23 15:05 | Emergency (ER) | payer OTHER ==
--- NOTE | 2022-01-23 17:31 | XRay Report ---
RIGHT ANKLE 3 VIEW(S) INDICATION / CLINICAL INFORMATION: injury, pain, swelling COMPARISON: None available. FINDINGS: BONES / JOINT(S): Acute mildly displaced oblique fracture medial malleolus. Comminuted acute markedly displaced fracture of posterior calcaneus with 3.4 cm fracture gap and superior displacement of the posterior superior calcaneus from the Achilles tendon. There is probable intra-articular extension in to the posterior subtalar joint. No significant arthritis. SOFT TISSUES: No significant abnormality. ADDITIONAL FINDINGS: None. IMPRESSION: 1. Comminuted markedly displaced fracture posterior superior calcaneus with intra-articular extension posterior subtalar joint 2. Acute mildly displaced oblique medial malleolus fracture. Signer Name: Tao Sawyer MD Signed: 01/23/2022 5:27 PM Workstation Name: [id number]
--- NOTE | 2022-01-23 17:34 | XRay Report ---
RIGHT FOOT 3 VIEW(S) INDICATION / CLINICAL INFORMATION: injury, pain, swelling COMPARISON: Right ankle x-ray same day FINDINGS: BONES / JOINT(S): Nonaggressive lytic lesion first toe distal phalanx likely represents enchondroma. Acute moderately displaced fracture of posterior calcaneus and mildly displaced fracture of medial ma lleolus described better on the right ankle x-ray No significant arthritis. SOFT TISSUES: No significant abnormality. ADDITIONAL FINDINGS: None. IMPRESSION: 1. Markedly displaced fracture of posterior calcaneus. 2. Mildly displaced medial malleolus fracture 3. Probable enchondroma distal phalanx first toe. Signer Name: Tao Sawyer MD Signed: 01/23/2022 5:30 PM Workstation Name: [id number]
[2022-01-23] MEDS ORDERED: MORPHINE 4 MG/1 ML INJ IM STA (18:59)
--- NOTE | 2022-01-23 19:01 | Emergency Department Report ---
ED Lower Extremity HPI - General Chief Complaint: Extremity Injury, Lower Stated Complaint: RT FOOT INJURY Time Seen by Provider: 01/23/22 18:41 Source: patient Mode of arrival: Wheelchair Limitations: No Limitations - History of Present Illness Initial Comments: Mr. Orta is a 41-year-old [employer] employee with past medical history of diabetes, hypertension, acute kidney injury who was involved in a accident on yesterday. While trying to carry a wash machine downstairs lost his balance because motion seemed to come down on his right foot and ankle causing a dorsiflexion type injury and in the fall down a few steps resulting in significant swelling and pain to the right ankle and foot resulting in inability to ambulate due to the discomfort and swelling. Pain is dull and throbbing worse with palpation and weightbearing. Occasional tingling sensation to the toes. MD Complaint: ankle injury, foot injury -: Sudden Injury: Ankle: Right, Foot: Right Severity: moderate Worsens With: weight bearing, movement, palpation Context: fall Associated Symptoms: swelling - Related Data Previous Rx's Medication Instructions Recorded Last Taken Type AtorvaSTATin [Lipitor] 40 mg PO QHS #30 tablet 05/20/21 2 Weeks Ago Rx ~07/23/21 Gabapentin 100 mg PO Q8HR #90 capsule 08/06/21 Unknown Rx Insulin NPH Hum/Reg Insulin Hm 25 unit SQ BID #10 ml 08/06/21 Unknown Rx [Novolin 70-30 Flexpen] Insulin Regular, Human [HumuLIN R] 0 unit SQ AC #1 vial 08/06/21 Unknown Rx Insulin NPH/Regular [Novolin 70/30] 15 unit SUB-Q TID #1 vial 11/12/21 Unknown Rx oxyCODONE /ACETAMINOPHEN [Percocet 1 tab PO Q6HR PRN #14 tablet 01/23/22 Unknown Rx 5/325] Allergies Allergy/AdvReac Type Severity Reaction Status Date / Time Sulfa (Sulfonamide Allergy Itching Verified 08/06/21 08:14 Antibiotics) ED Review of Systems ROS: Stated complaint: RT FOOT INJURY Other details as noted in HPI Comment: All other systems reviewed and negative ED Past Medical Hx - Past Medical History Hx Hypertension: Yes Hx Congestive Heart Failure: No Hx Diabetes: Yes Hx Seizures: Yes Hx Asthma: No Hx COPD: No Hx HIV: No Additional medical history: Gastritis - Surgical History Additional Surgical History: hernia repair - Social History Smoking Status: Current Every Day Smoker - Medications Home Medications: Home Medications Medication Instructions Recorded Confirmed Last Taken Type AtorvaSTATin [Lipitor] 40 mg PO QHS #30 tablet 05/20/21 08/06/21 2 Weeks Ago Rx ~07/23/21 Gabapentin 100 mg PO Q8HR #90 capsule 08/06/21 Unknown Rx Insulin NPH Hum/Reg Insulin Hm 25 unit SQ BID #10 ml 08/06/21 Unknown Rx [Novolin 70-30 Flexpen] Insulin Regular, Human [HumuLIN R] 0 unit SQ AC #1 vial 08/06/21 Unknown Rx Insulin NPH/Regular [Novolin 70/30] 15 unit SUB-Q TID #1 vial 11/12/21 Unknown Rx oxyCODONE /ACETAMINOPHEN [Percocet 1 tab PO Q6HR PRN #14 tablet 01/23/22 Unknown Rx 5/325] ED Physical Exam - General Limitations: No Limitations General appearance: alert, in no apparent distress - Head Head exam: Present: atraumatic, normocephalic - Eye Eye exam: Present: normal appearance - ENT ENT exam: Present: mucous membranes moist - Neck Neck exam: Present: normal inspection - Respiratory Respiratory exam: Present: normal lung sounds bilaterally. Absent: respiratory distress - Cardiovascular Cardiovascular Exam: Present: regular rate, normal rhythm. Absent: systolic murmur, diastolic murmur, rubs, gallop - GI/Abdominal GI/Abdominal exam: Present: soft, normal bowel sounds - Rectal Rectal exam: Present: deferred - Extremities Exam Extremities exam: Present: normal inspection, tenderness, pedal edema, joint swelling. Absent: calf tenderness - Expanded Lower Extremity Exam Right Upper Leg exam: Present: normal inspection Knee exam: Present: normal inspection Lower Leg exam: Present: tenderness, swelling Ankle exam: Present: tenderness, swelling. Absent: abrasion, laceration, ecchymosis, dislocation, erythema Neuro vascular tendon exam: Present: no vascular compromise Gait: Positive: unable to bear weight - Back Exam Back exam: Present: normal inspection - Neurological Exam Neurological exam: Present: alert, oriented X3 - Psychiatric Psychiatric exam: Present: normal affect, normal mood - Skin Skin exam: Present: warm, dry, intact, normal color. Absent: rash ED Course Vital Signs 01/23/22 16:57 Temperature 99.4 F Pulse Rate 97 H Respiratory 16 Rate Blood Pressure 137/90 [Left] O2 Sat by Pulse 98 Oximetry - Consultations Consultation #1: 01/23/22 19:01 Case discussed with attending Dr. Kowalski who did review the x-rays plan is to reach out to Dr. Turcios who is on-call for Ortho who was contacted at 6:53 PM via text message with the images and patient information Consultation #2: 01/23/22 20:[address] Turcios via text messages as he responded at 8:[address] in a short leg splint and referred to the office and he will need surgical fixation for calcaneal fracture outpatient surgery ED Lower Extremity MDM - Radiology Data Radiology results: report reviewed [facility] [address] [place] [address] XRay Report Signed Patient: MANISH CELESTE MR #: [id number] : 1980 Acct:[id number] Age/Sex: 41 / M ADM Date: 01/23/22 Loc: ED Attending Dr: Ordering Physician: ED MD LIGIA Date of Service: 01/23/22 Procedure(s): XR ankle 3+V RT Accession Number(s): [id number] cc: ED MD LIGIA Fluoro Time In Minutes: RIGHT ANKLE 3 VIEW(S) INDICATION / CLINICAL INFORMATION: injury, pain, swelling COMPARISON: None available. FINDINGS: BONES / JOINT(S): Acute mildly displaced oblique fracture medial malleolus. Comminuted acute markedly displaced fracture of posterior calcaneus with 3.4 cm fracture gap and superior displacement of the posterior superior calcaneus from the Achilles tendon. There is probable intra- articular extension into the posterior subtalar joint. No significant arthritis. SOFT TISSUES: No significant abnormality. ADDITIONAL FINDINGS: None. IMPRESSION: 1. Comminuted markedly displaced fracture posterior superior calcaneus with intra-articular extension posterior subtalar joint 2. Acute mildly displaced oblique medial malleolus fracture. Signer Name: Tao Sawyer MD Signed: 01/23/2022 5:27 PM Workstation Name: [id number] Transcribed By: TL Dictated By: Tao Sawyer MD Electronically Authenticated By: Tao Sawyer MD Signed Date/Time: 01/23/221726 DD/ 23 TD/TT: Critical care attestation.: If time is entered above; I have spent that time in minutes in the direct care of this critically ill patient, excluding procedure time. ED Disposition Clinical Impression: Calcaneal fracture, Ankle fracture, right Disposition: 01 HOME / SELF CARE / HOMELESS Is pt being admited?: No Does the pt Need Aspirin: No Condition: Stable Instructions: Nondisplaced Fibular Ankle Fracture Treated With Immobilization, Adult, Calcaneal Fracture Repair Surgery, Care After, Cast or Splint Care, Adult, [id number] Additional Instructions: Your case was discussed with Dr. Turcios the orthopedic provider in this facility who advised the patient in a short leg splint having follow-up at his office on this Tuesday or Tuesday to be evaluated for outpatient surgical fixation of this injury. This injury will require surgery for repair so be sure to utilize the crutches and apply no weight to your foot until you are evaluated by the orthopedic physician. You have also been provided pain medication to help with your discomfort be sure to keep your leg elevated. Prescriptions: oxyCODONE /ACETAMINOPHEN [Percocet 5/325] 1 tab PO Q6HR PRN #14 tablet PRN Reason: Pain Referrals: PRIMARY MD LIZA [Primary Care Provider] - 3-5 Days NICOLA TURCIOS MD [Staff Physician] - 01/25/22
[2022-01-23 21:21] VITALS: BP 139/87
== END 2022-01-23 21:21 | disposition home or self-care (01) ==
LOC: ED 15:05
DX: S92.009A Unspecified fracture of unspecified calcaneus, initial encounter for closed fracture (principal); S82.891A Other fracture of right lower leg, initial encounter for closed fracture; I10 Essential (primary) hypertension; E11.9 Type 2 diabetes mellitus without complications; Z88.2 Allergy status to sulfonamides; F17.200 Nicotine dependence, unspecified, uncomplicated; X58.XXXA Exposure to other specified factors, initial encounter; Y93.89 Activity, other specified; Y92.89 Other specified places as the place of occurrence of the external cause; Y99.9 Unspecified external cause status
CPT/HCPCS: 96372; 99283

== ENCOUNTER 2022-02-21 11:50 | Inpatient (IN) | payer BC, OTHER ==
[2022-02-21] MEDS ORDERED: METOCLOPRAMIDE 10 MG/2 ML INJ IV ONE (11:55)
[2022-02-21] MEDS ORDERED: INSULIN REGULAR, HUMAN 100 UNITS/1 ML IV ONE ×2 (11:55→15:27)
[2022-02-21] MEDS ORDERED: INSULIN REGULAR, HUMAN 100 UNITS/1 ML SUB-Q ONE (11:55)
[2022-02-21] MEDS ORDERED: SODIUM CHLORIDE 0.9% 1000 ML 1,000 ML IV ONE ×2 (11:55→14:12)
[2022-02-21] MEDS ORDERED: MORPHINE 2 MG/1 ML INJ IV ONE (11:55)
--- NOTE | 2022-02-21 12:01 | Emergency Department Report ---
ED Abdominal Pain HPI - General Stated Complaint: HYPERGLYCEMIA,ABD PAIN Time Seen by Provider: 02/21/22 11:53 - History of Present Illness Initial Comments: 41-year-old male with a history of diabetes and gastroparesis brought in by EMS with abdominal pain that started this morning progressively getting worse. According to EMS patient blood sugar check read high on the glucometer which means it is more than 600 mg/dL. EMS also reported that patient that mentioned that he does not take care of himself. Patient's was reported to be drinking alcohol around 1 AM overnight. Patient is screaming and yelling asking for pain medication. Patient also reported nausea and vomiting nonbloody. No fever or chills reported. No other modifying or associated factors reported. MD Complaint: abdominal pain - Related Data Previous Rx's Medication Instructions Recorded Last Taken Type AtorvaSTATin [Lipitor] 40 mg PO QHS #30 tablet 05/20/21 2 Weeks Ago Rx ~07/23/21 Gabapentin 100 mg PO Q8HR #90 capsule 08/06/21 Unknown Rx Insulin NPH Hum/Reg Insulin Hm 25 unit SQ BID #10 ml 08/06/21 Unknown Rx [Novolin 70-30 Flexpen] Insulin Regular, Human [HumuLIN R] 0 unit SQ AC #1 vial 08/06/21 Unknown Rx Insulin NPH/Regular [Novolin 70/30] 15 unit SUB-Q TID #1 vial 11/12/21 Unknown Rx oxyCODONE /ACETAMINOPHEN [Percocet 1 tab PO Q6HR PRN #14 tablet 01/23/22 Unknown Rx 5/325] Allergies Allergy/AdvReac Type Severity Reaction Status Date / Time Sulfa (Sulfonamide Allergy Itching Verified 08/06/21 08:14 Antibiotics) ED Review of Systems ROS: Stated complaint: HYPERGLYCEMIA,ABD PAIN Other details as noted in HPI Comment: All other systems reviewed and negative Gastrointestinal: abdominal pain, nausea, vomiting. denies: diarrhea, constipation ED Past Medical Hx - Past Medical History Hx Hypertension: Yes Hx Congestive Heart Failure: No Hx Diabetes: Yes Hx Seizures: Yes Hx Asthma: No Hx COPD: No Hx HIV: No Additional medical history: Gastritis - Surgical History Additional Surgical History: hernia repair - Social History Smoking Status: Current Every Day Smoker - Medications Home Medications: Home Medications Medication Instructions Recorded Confirmed Last Taken Type AtorvaSTATin [Lipitor] 40 mg PO QHS #30 tablet 05/20/21 08/06/21 2 Weeks Ago Rx ~07/23/21 Gabapentin 100 mg PO Q8HR #90 capsule 08/06/21 Unknown Rx Insulin NPH Hum/Reg Insulin Hm 25 unit SQ BID #10 ml 08/06/21 Unknown Rx [Novolin 70-30 Flexpen] Insulin Regular, Human [HumuLIN R] 0 unit SQ AC #1 vial 08/06/21 Unknown Rx Insulin NPH/Regular [Novolin 70/30] 15 unit SUB-Q TID #1 vial 11/12/21 Unknown Rx oxyCODONE /ACETAMINOPHEN [Percocet 1 tab PO Q6HR PRN #14 tablet 01/23/22 Unknown Rx 5/325] ED Physical Exam - General Limitations: No Limitations General appearance: alert, in distress (Due to abdominal pain) - Eye Eye exam: Present: normal appearance Pupils: Present: normal accommodation - ENT ENT exam: Present: normal exam, normal orophraynx, mucous membranes dry - Neck Neck exam: Present: normal inspection - Respiratory Respiratory exam: Present: normal lung sounds bilaterally. Absent: respiratory distress, accessory muscle use - Cardiovascular Cardiovascular Exam: Present: regular rate, normal rhythm, normal heart sounds - GI/Abdominal GI/Abdominal exam: Present: soft, tenderness (Epigastric tenderness to palpation), rebound, normal bowel sounds. Absent: distended - Extremities Exam Extremities exam: Present: normal inspection, normal capillary refill. Absent: pedal edema - Back Exam Back exam: Absent: tenderness - Neurological Exam Neurological exam: Present: alert, oriented X3 - Psychiatric Psychiatric exam: Present: normal affect, agitated (Due to pain), anxious - Skin Skin exam: Present: warm, dry ED Course Vital Signs 02/21/22 02/21/22 02/21/22 11:59 12:26 12:41 Temperature 98.4 F 97.8 F Pulse Rate 95 H 122 H 94 H Respiratory 18 247 H 16 Rate Blood Pressure 168/95 Blood Pressure 160/100 168/84 153/94 [Left] O2 Sat by Pulse 97 97 93 Oximetry 02/21/22 02/21/22 02/21/22 13:27 14:00 15:45 Temperature 98.8 F Pulse Rate 87 85 102 H Respiratory 20 20 20 Rate Blood Pressure Blood Pressure 165/107 156/90 143/86 [Left] O2 Sat by Pulse 97 97 98 Oximetry 02/21/22 15:47 Temperature Pulse Rate 68 Respiratory 20 Rate Blood Pressure Blood Pressure 143/68 [Left] O2 Sat by Pulse 97 Oximetry - Consultations Consultation #1: 02/21/22 16:19 I called and spoke with Dr Zamora who accept pt for further evaluation and treatment ED Medical Decision Making - Lab Data Result diagrams: 02/21/22 12:21 02/21/22 13:19 - Medical Decision Making Here with abdominal pain--though this is likely as a result of gastroparesis and hyperglycemia these other differential could be but not limited to append icitis, diverticulitis, cholecystitis, cholelithiasis, nephrolithiasis, gastritis, pancreatitis, duodenitis, colitis, irritable bowel syndrome, cystitis, so in order to rule this out we will go ahead and order routine acute abdomen that include CBC, CMP, urinalysis, and CT imaging of the abdomen/pelvic. While waiting for the above will order ivf ns 1L bolus x 1, reglan considering possibility of gastroparesis, and morphine 2 mg IV for comfort-- pt also given insulin 10 units SQ and also IV x 1--will continue to monitor blood sugar with chemistry-- Noted with blood sugar 770 mg/dl -- after the initial insulin 10 units IV and SQ-- and the first 2 liters-- Also noted with elevated lactic acid likely as part of the hyperglycemic metabolic derrangement. Pt continue to be agitated and was given haldol + benadryl+ versed-- I consider CT abdomen but Dr Zamora did not agree and believe it won't make any difference at this time. Critical care attestation.: If time is entered above; I have spent that time in minutes in the direct care of this critically ill patient, excluding procedure time. ED Disposition Clinical Impression: Hyperglycemia Abdominal pain Qualifiers: Abdominal location: epigastric Qualified Code(s): R10.13 - Epigastric pain Disposition: ADMITTED INPATIENT Is pt being admited?: Yes Does the pt Need Aspirin: No Condition: Stable Time of Disposition: 16:38
[2022-02-21] MEDS ORDERED: MIDAZOLAM 2 MG/2 ML INJ IV ONE (12:16)
[2022-02-21] MEDS ORDERED: HALOPERIDOL LACTATE 5 MG/1 ML INJ IM ONE (12:16)
[2022-02-21] MEDS ORDERED: diphenhydrAMINE 50 MG/ML VIAL IV ONE (12:16)
[2022-02-21 13:15] LABS: Amphetamine Screen,Urine Negative; Benzodiazepines Screen,Urine Negative; Cannabinoid Screen,Urine Negative; Cocaine Screen,Urine Negative; Methadone Screen,Urine Negative; Opiate Screen,Urine Negative
[2022-02-21 13:18] LABS: Hematocrit 34.7 % (35.5-45.6); Hemoglobin 10.8 gm/dl (11.8-15.2); Mean Corpuscular HGB Conc 31 % (32-34); Mean Corpuscular Volume 98 fl (84-94); Platelet Count 203 K/mm3 (140-440); Red Blood Count 3.54 M/mm3 (3.65-5.03); Red Cell Distribution Width 13.6 % (13.2-15.2)
[2022-02-21 13:24] LABS: Color,Urine Colorless (Yellow); RBC,Urine < 1.0 /HPF (0.0-6.0)
[2022-02-21 13:56] LABS: INR 0.92 (0.87-1.13)
[2022-02-21 13:57] LABS: Partial Thromboplastin Time 25.7 Sec. (24.2-36.6)
[2022-02-21 14:02] LABS: Albumin 4.3 g/dL (3.9-5); Calcium 9.2 mg/dL (8.4-10.2)
[2022-02-21 14:08] LABS: Free T4 (Free Thyroxine) 1.27 ng/dL (0.76-1.46)
[2022-02-21 15:28] LABS: Eosinophils % (Manual) 0 % (0.0-4.3); Monocytes % (Manual) 0 % (0.0-7.3); Total Cells Counted 100
[2022-02-21 15:29] LABS: Platelet Estimate Consistent w Auto; RBC Morphology Normal
[2022-02-21] MEDS ORDERED: ACETAMINOPHEN 325 MG TAB PO PRN (19:59)
[2022-02-21] MEDS ORDERED: MORPHINE 2 MG/1 ML INJ IV PRN (20:04)
[2022-02-21] MEDS ORDERED: SODIUM CHLORIDE 0.9% 1000 ML 1,000 ML IV SCH (20:15)
[2022-02-21] MEDS: FAMOTIDINE 20 MG/2 ML INJ IV SCH (22:00)
[2022-02-21] MEDS: INSULIN LISPRO 100 UNIT/ML SUB-Q SCH (22:00)
[2022-02-21] MEDS: HYDROmorphone 0.5 MG/0.5 ML INJ IV PRN (22:00)
[2022-02-21] MEDS: ONDANSETRON 4 MG/2 ML INJ IV PRN (22:00)
[2022-02-21] MEDS: HEPARIN 5,000 UNIT/1 ML VIAL SUB-Q SCH (23:15)
[2022-02-21 23:47] VITALS: BP 128/78
[2022-02-22] MEDS: ONDANSETRON 4 MG/2 ML INJ IV PRN (01:44)
[2022-02-22] MEDS: HYDROmorphone 0.5 MG/0.5 ML INJ IV PRN ×2 (01:47→09:35)
[2022-02-22] MEDS: INSULIN LISPRO 100 UNIT/ML SUB-Q SCH ×2 (02:45→07:07)
[2022-02-22 06:47] LABS: Basophils # (Auto) 0.1 K/mm3 (0.0-0.1); Basophils % (Auto) 0.6 % (0.0-1.8); Hematocrit 32.2 % (35.5-45.6); Hemoglobin 10.5 gm/dl (11.8-15.2); Lymphocytes # (Auto) 1.4 K/mm3 (1.2-5.4); Lymphocytes % (Auto) 8.3 % (13.4-35.0); Mean Corpuscular HGB Conc 33 % (32-34); Mean Corpuscular Volume 93 fl (84-94); Monocytes # (Auto) 1.1 K/mm3 (0.0-0.8); Monocytes % (Auto) 6.9 % (0.0-7.3); Platelet Count 205 K/mm3 (140-440); Red Blood Count 3.46 M/mm3 (3.65-5.03); Red Cell Distribution Width 13.3 % (13.2-15.2)
--- NOTE | 2022-02-22 06:56 | History and Physical Report ---
History of Present Illness Date of examination: 02/21/22 Date of admission: 02/21/22 19:59 Chief complaint: Abdominal pain and nausea and vomiting for 1 day History of present illness: 41-year-old male with a history of diabetes and gastroparesis brought in by EMS with abdominal pain that started this morning progressively getting worse. According to EMS patient blood sugar check read high on the glucometer which means it is more than 600 mg/dL. EMS also reported that patient that mentioned that he does not take care of himself. Patient's was reported to be drinking alcohol around 1 AM overnight. Patient is screaming and yelling asking for pain medication. Patient also reported nausea and vomiting nonbloody. No fever or chills reported. No other modifying or associated factors reported. - Past Medical History --Hypertension: Yes --Diabetes: Yes --Seizures: Yes --Additional medical history: Gastritis - Surgical History --Additional Surgical History: hernia repair - Social History --Smoking Status: Current Every Day Smoker -Family history --Htn - Medications --Home Medications: Home Medications Medication Instructions Recorded Confirmed Last Taken Type AtorvaSTATin [Lipitor] 40 mg PO QHS #30 tablet 05/20/21 08/06/21 2 Weeks Ago Rx ~07/23/21 Gabapentin 100 mg PO Q8HR #90 capsule 08/06/21 Unknown Rx Insulin NPH Hum/Reg Insulin Hm 25 unit SQ BID #10 ml 08/06/21 Unknown Rx [Novolin 70-30 Flexpen] Insulin Regular, Human [HumuLIN R] 0 unit SQ AC #1 vial 08/06/21 Unknown Rx Insulin NPH/Regular [Novolin 70/30] 15 unit SUB-Q TID #1 vial 11/12/21 Unknown Rx oxyCODONE /ACETAMINOPHEN [Percocet 1 tab PO Q6HR PRN #14 tablet 01/23/22 Unknown Rx 5/325] Review of Systems ROS: Constitutional no weight loss or weight gain no fever or chills HEENT no sore throat no post nasal drip no diplopia Neck no neck stiffness no lymph gland enlargement Chest and lungs no shortness of breath cough or wheezing CVS no chest pain no diaphoresis no palpitations GI persistent vomiting and abdominal pain Genitourinary system no dysuria no flank pain Musculoskeletal system no muscle pains no joint pains [employer] no syncope no seizures Skin no rash no itching Psychiatric no depression no homicidal or suicidal tendencies Hematologic no lymphedema or bruising Endocrine no polydipsia no polyuria no cold intolerance no heat intolerance Medications and Allergies Allergies Allergy/AdvReac Type Severity Reaction Status Date / Time Sulfa (Sulfonamide Allergy Itching Verified 08/06/21 08:14 Antibiotics) Home Medications Medication Instructions Recorded Confirmed Last Taken Type AtorvaSTATin [Lipitor] 40 mg PO QHS #30 tablet 05/20/21 08/06/21 2 Weeks Ago Rx ~07/23/21 Gabapentin 100 mg PO Q8HR #90 capsule 08/06/21 Unknown Rx Insulin NPH Hum/Reg Insulin Hm 25 unit SQ BID #10 ml 08/06/21 Unknown Rx [Novolin 70-30 Flexpen] Insulin Regular, Human [HumuLIN R] 0 unit SQ AC #1 vial 08/06/21 Unknown Rx Insulin NPH/Regular [Novolin 70/30] 15 unit SUB-Q TID #1 vial 11/12/21 Unknown Rx oxyCODONE /ACETAMINOPHEN [Percocet 1 tab PO Q6HR PRN #14 tablet 01/23/22 Unknown Rx 5/325] Active Meds: Active Medications Acetaminophen (Acetaminophen 325 Mg Tab) 650 mg PO Q4H PRN PRN Reason: Pain MILD(1-3)/Fever >100.5/HUSSEIN Famotidine (Famotidine 20 Mg/2 Ml Inj) 20 mg IV QAM MARCUS Last Admin: 02/21/22 22:00 Dose: 20 mg Heparin Sodium (Porcine) (Heparin 5,000 Unit/1 Ml Vial) 5,000 unit SUB-Q Q12HR MARCUS Last Admin: 02/21/22 23:15 Dose: 5,000 unit Hydromorphone HCl (Hydromorphone 0.5 Mg/0.5 Ml Inj) 0.5 mg IV Q3H PRN PRN Reason: Pain , Severe (7-10) Last Admin: 02/22/22 01:47 Dose: 0.5 mg Sodium Chloride (Nacl 0.9% 1000 Ml) 1,000 mls @ 125 mls/hr IV DIRECT MARCUS Last Admin: 02/22/22 01:45 Dose: 125 mls/hr Insulin Human Lispro (Insulin Lispro 100 Unit/Ml) 0 unit SUB-Q Q4H [facility]; Protocol Last Admin: 02/22/22 02:45 Dose: 8 unit Morphine Sulfate (Morphine 2 Mg/1 Ml Inj) 2 mg IV Q4H PRN PRN Reason: Pain, Moderate (4-6) Ondansetron HCl (Ondansetron 4 Mg/2 Ml Inj) 4 mg IV Q3H PRN PRN Reason: Nausea And Vomiting Last Admin: 02/22/22 01:44 Dose: 4 mg Sodium Chloride (Sodium Chloride 0.9% 10 Ml Flush Syringe) 10 ml IV BID MARCUS Last Admin: 02/21/22 22:00 Dose: 10 ml Sodium Chloride (Sodium Chloride 0.9% 10 Ml Flush Syringe) 10 ml IV PRN PRN PRN Reason: LINE FLUSH Exam - Constitutional Vitals: Temp Pulse Resp BP Pulse Ox 98 F 90 20 128/78 100 02/21/22 20:00 02/21/22 20:00 02/21/22 20:00 02/21/22 20:00 02/21/22 20:00 General appearance: Present: mild distress, well-nourished - EENT Eyes: Present: PERRL ENT: hearing intact, clear oral mucosa - Neck Neck: Present: supple, normal ROM - Respiratory Respiratory effort: normal Respiratory: bilateral: CTA - Cardiovascular Heart rate: 78 Rhythm: regular Heart Sounds: Present: S1 & S2. Absent: rub, click - Extremities Extremities: no ischemia, pulses intact, pulses symmetrical, No edema Peripheral Pulses: within normal limits - Abdominal General gastrointestinal: Present: soft, tender, non-distended, normal bowel sounds Localized gastrointestinal: tender: diffuse Male genitourinary: Present: normal - Rectal Rectal Exam: deferred - Integumentary Integumentary: Present: clear, warm, dry - Musculoskeletal Musculoskeletal: gait normal, strength equal bilaterally - Psychiatric Psychiatric: appropriate mood/affect, intact judgment & insight - Neurologic Neurologic: CNII-XII intact, moves all extremities - Allied Health Allied health notes reviewed: nursing, case management Results - Labs CBC & Chem 7: 02/22/22 06:24 02/21/22 13:19 Labs: Laboratory Last Values WBC 16.7 K/mm3 (4.5-11.0) H 02/22/22 06:24 RBC 3.46 M/mm3 (3.65-5.03) L 02/22/22 06:24 Hgb 10.5 gm/dl (11.8-15.2) L 02/22/22 06:24 Hct 32.2 % (35.5-45.6) L 02/22/22 06:24 MCV 93 fl (84-94) 02/22/22 06:24 MCH 30 pg (28-32) 02/22/22 06:24 MCHC 33 % (32-34) 02/22/22 06:24 RDW 13.3 % (13.2-15.2) 02/22/22 06:24 Plt Count 205 K/mm3 (140-440) 02/22/22 06:24 Lymph % (Auto) 8.3 % (13.4-35.0) L 02/22/22 06:24 Ada % (Auto) 6.9 % (0.0-7.3) 02/22/22 06:24 Eos % (Auto) 0.0 % (0.0-4.3) 02/22/22 06:24 Baso % (Auto) 0.6 % (0.0-1.8) 02/22/22 06:24 Lymph # (Auto) 1.4 K/mm3 (1.2-5.4) 02/22/22 06:24 Ada # (Auto) 1.1 K/mm3 (0.0-0.8) H 02/22/22 06:24 Eos # (Auto) 0.0 K/mm3 (0.0-0.4) 02/22/22 06:24 Baso # (Auto) 0.1 K/mm3 (0.0-0.1) 02/22/22 06:24 Add Manual Diff Complete 02/21/22 12:21 Total Counted 100 02/21/22 12:21 Seg Neutrophils % 84.2 % (40.0-70.0) H 02/22/22 06:24 Seg Neuts % (Manual) 90.0 % (40.0-70.0) H 02/21/22 12:21 Band Neutrophils % 0 % 02/21/22 12:21 Lymphocytes % (Manual) 8.0 % (13.4-35.0) L 02/21/22 12:21 Reactive Lymphs % (Man) 0 % 02/21/22 12:21 Monocytes % (Manual) 0 % (0.0-7.3) 02/21/22 12:21 Eosinophils % (Manual) 0 % (0.0-4.3) 02/21/22 12:21 Basophils % (Manual) 2.0 % (0.0-1.8) H 02/21/22 12:21 Metamyelocytes % 0 % 02/21/22 12:21 Myelocytes % 0 % 02/21/22 12:21 Promyelocytes % 0 % 02/21/22 12:21 Blast Cells % 0 % 02/21/22 12:21 Nucleated RBC % Not Reportable 02/21/22 12:21 Seg Neutrophils # 14.1 K/mm3 (1.8-7.7) H 02/22/22 06:24 Seg Neutrophils # Man 11.2 K/mm3 (1.8-7.7) H 02/21/22 12:21 Band Neutrophils # 0.0 K/mm3 02/21/22 12:21 Lymphocytes # (Manual) 1.0 K/mm3 (1.2-5.4) L 02/21/22 12:21 Abs React Lymphs (Man) 0.0 K/mm3 02/21/22 12:21 Monocytes # (Manual) 0.0 K/mm3 (0.0-0.8) 02/21/22 12:21 Eosinophils # (Manual) 0.0 K/mm3 (0.0-0.4) 02/21/22 12:21 Basophils # (Manual) 0.2 K/mm3 (0.0-0.1) H 02/21/22 12:21 Metamyelocytes # 0.0 K/mm3 02/21/22 12:21 Myelocytes # 0.0 K/mm3 02/21/22 12:21 Promyelocytes # 0.0 K/mm3 02/21/22 12:21 Blast Cells # 0.0 K/mm3 02/21/22 12:21 WBC Morphology Not Reportable 02/21/22 12:21 WBC Morphology TNR 02/21/22 12:21 Hypersegmented Neuts Not Reportable 02/21/22 12:21 Hyposegmented Neuts Not Reportable 02/21/22 12:21 Hypogranular Neuts Not Reportable 02/21/22 12:21 Smudge Cells Not Reportable 02/21/22 12:21 Toxic Granulation Not Reportable 02/21/22 12:21 Toxic Vacuolation Not Reportable 02/21/22 12:21 Dohle Bodies Not Reportable 02/21/22 12:21 Pelger-Huet Anomaly Not Reportable 02/21/22 12:21 Wally Rods Not Reportable 02/21/22 12:21 Platelet Estimate Consistent w auto 02/21/22 12:21 Clumped Platelets Not Reportable 02/21/22 12:21 Plt Clumps, EDTA Not Reportable 02/21/22 12:21 Large Platelets Not Reportable 02/21/22 12:21 Giant Platelets Not Reportable 02/21/22 12:21 Platelet Satelliting Not Reportable 02/21/22 12:21 Plt Morphology Comment Not Reportable 02/21/22 12:21 RBC Morphology Normal 02/21/22 12:21 Dimorphic RBCs Not Reportable 02/21/22 12:21 Polychromasia Not Reportable 02/21/22 12:21 Hypochromasia Not Reportable 02/21/22 12:21 Poikilocytosis Not Reportable 02/21/22 12:21 Anisocytosis Not Reportable 02/21/22 12:21 Microcytosis Not Reportable 02/21/22 12:21 Macrocytosis Not Reportable 02/21/22 12:21 Spherocytes Not Reportable 02/21/22 12:21 Pappenheimer Bodies Not Reportable 02/21/22 12:21 Sickle Cells Not Reportable 02/21/22 12:21 Target Cells Not Reportable 02/21/22 12:21 Tear Drop Cells Not Reportable 02/21/22 12:21 Ovalocytes Not Reportable 02/21/22 12:21 Helmet Cells Not Reportable 02/21/22 12:21 Funes-Peridot Bodies Not Reportable 02/21/22 12:21 Little Neck Rings Not Reportable 02/21/22 12:21 [place] Cells Not Reportable 02/21/22 12:21 Bite Cells Not Reportable 02/21/22 12:21 Crenated Cell Not Reportable 02/21/22 12:21 Elliptocytes Not Reportable 02/21/22 12:21 Acanthocytes (Spur) Not Reportable 02/21/22 12:21 Rouleaux Not Reportable 02/21/22 12:21 Hemoglobin C Crystals Not Reportable 02/21/22 12:21 Schistocytes Not Reportable 02/21/22 12:21 Malaria parasites Not Reportable 02/21/22 12:21 Julius Bodies Not Reportable 02/21/22 12:21 Hem Pathologist Commnt No 02/21/22 12:21 PT 13.4 Sec. (12.2-14.9) 02/21/22 13:19 INR 0.92 (0.87-1.13) 02/21/22 13:19 APTT 25.7 Sec. (24.2-36.6) 02/21/22 13:19 Sodium 136 mmol/L (137-145) L 02/21/22 13:19 Potassium 3.6 mmol/L (3.6-5.0) 02/21/22 13:19 Chloride 94.3 mmol/L (98-107) L 02/21/22 13:19 Carbon Dioxide 21 mmol/L (22-30) L 02/21/22 13:19 Anion Gap 24 mmol/L 02/21/22 13:19 BUN 26 mg/dL (9-20) H 02/21/22 13:19 Creatinine 2.4 mg/dL (0.8-1.3) H 02/21/22 13:19 Estimated GFR 36 ml/min 02/21/22 13:19 BUN/Creatinine Ratio 11 % 02/21/22 13:19 Glucose 719 mg/dL (75-100) H* 02/21/22 13:19 POC Glucose 332 mg/dL (70-105) H 02/22/22 02:47 Lactic Acid 4.00 mmol/L (0.7-2.0) H* 02/21/22 18:30 Calcium 9.2 mg/dL (8.4-10.2) 02/21/22 13:19 Total Bilirubin 0.30 mg/dL (0.1-1.2) 02/21/22 13:19 AST 21 units/L (5-40) 02/21/22 13:19 ALT 15 units/L (7-56) 02/21/22 13:19 Alkaline Phosphatase 161 units/L (35-129) H 02/21/22 13:19 NT-Pro-B Natriuret Pep 606.3 pg/mL (0-450) H 02/21/22 13:19 Total Protein 7.0 g/dL (6.3-8.2) 02/21/22 13:19 Albumin 4.3 g/dL (3.9-5) 02/21/22 13:19 Albumin/Globulin Ratio 1.6 % 02/21/22 13:19 Lipase 27 units/L (13-60) 02/21/22 13:19 TSH 1.010 mlU/mL (0.270-4.200) 02/21/22 13:19 Free T4 1.27 ng/dL (0.76-1.46) 02/21/22 13:19 Urine Color Colorless (Yellow) 02/21/22 12:26 Urine Turbidity Clear (Clear) 02/21/22 12:26 Specific [place] (Man) 1.023 (1.003-1.030) 02/21/22 12:26 Ur Protein (Man) 1+ mg/dL (Negative) 02/21/22 12:26 Ur Ketones (Man) 1+ (Negative) 02/21/22 12:26 Urine Bilirubin (Man) Negative (Negative) 02/21/22 12:26 Urine WBC (Auto) 0.0 /HPF (0.0-6.0) 02/21/22 12:26 Urine RBC (Auto) < 1.0 /HPF (0.0-6.0) 02/21/22 12:26 Urine RBC (Manual) Trace (Negative) 02/21/22 12:26 Salicylates < 0.3 mg/dL (2.8-20.0) L 02/21/22 13:19 Urine Opiates Screen Negative 02/21/22 12:26 Urine Methadone Screen Negative 02/21/22 12:26 Acetaminophen 5.0 ug/mL (10.0-30.0) L 02/21/22 13:19 Ur Barbiturates Screen Negative 02/21/22 12:26 Ur Phencyclidine Scrn Negative 02/21/22 12:26 Ur Amphetamines Screen Negative 02/21/22 12:26 U Benzodiazepines Scrn Negative 02/21/22 12:26 Urine Cocaine Screen Negative 02/21/22 12:26 U Marijuana (THC) Screen Negative 02/21/22 12:26 Drugs of Abuse Note Disclamer 02/21/22 12:26 Plasma/Serum Alcohol < 0.01 % (0-0.07) 02/21/22 12:21 Short CBC 02/21/22 02/22/22 Range/Units 12:21 06:24 WBC 12.4 H 16.7 H (4.5-11.0) K/mm3 Hgb 10.8 L 10.5 L (11.8-15.2) gm/dl Hct 34.7 L 32.2 L (35.5-45.6) % Plt Count 203 205 (140-440) K/mm3 BMP 02/21/22 13:19 Sodium 136 L Potassium 3.6 Chloride 94.3 L Carbon Dioxide 21 L BUN 26 H Creatinine 2.4 H Glucose 719 H* Calcium 9.2 Liver Function 02/21/22 Range/Units 13:19 Total Bilirubin 0.30 (0.1-1.2) mg/dL AST 21 (5-40) units/L ALT 15 (7-56) units/L Alkaline Phosphatase 161 H (35-129) units/L Albumin 4.3 (3.9-5) g/dL Urine 02/21/22 Range/Units 12:26 Urine Color Colorless (Yellow) Velazquez/IV: Voiding Method Urinal Assessment and Plan Advance Directives: Yes (Full code) VTE prophylaxis?: Chemical Plan of care discussed with patient/family: Yes - Patient Problems (1) Diabetic hyperosmolar non-ketotic state Current Visit: Yes Status: Acute Plan to address problem: Initial blood glucose was 719 Blood glucose levels were brought down to 180 Patient was downgraded to telemetry from a potential ICU admission Accu-Cheks every 4 hours High-dose sliding scale coverage Home insulin initiated Check hemoglobin A1c Diabetes education No metabolic acidosis (2) SIRS (systemic inflammatory response syndrome) Current Visit: Yes Status: Acute Plan to address problem: Elevated white count and lactic acid Empiric IV antibiotics (3) Gastroparesis Current Visit: Yes Status: Acute Plan to address problem: IV Reglan and clear liquid diet Pain control (4) Hyperlipidemia Current Visit: Yes Status: Chronic Qualifiers: Hyperlipidemia type: mixed hyperlipidemia Qualified Code(s): E78.2 - Mixed hyperlipidemia Plan to address problem: Continue statins (5) Peripheral neuropathy Current Visit: Yes Status: Chronic Qualifiers: Peripheral neuropathy type: polyneuropathy, unspecified Qualified Code(s): G62.9 - Polyneuropathy, unspecified Plan to address problem: Continue gabapentin 100 mg every 8 hours (6) DVT prophylaxis Current Visit: Yes Status: Acute Plan to address problem: On heparin and GI prophylaxis (7) Advance care planning Current Visit: Yes Status: Acute Plan to address problem: Disease education conducted, care plan discussed, diagnosis discussed and prognosis discussed. Patient acknowledged understanding with care plan. +30 minutes.
[2022-02-22 07:01] LABS: Albumin 3.9 g/dL (3.9-5); Calcium 9.1 mg/dL (8.4-10.2)
[2022-02-22] MEDS ORDERED: cefTRIAXone/NS 2 GM/100 ML 2 GM/100 ML BAG IV SCH (09:00)
[2022-02-22] MEDS: FAMOTIDINE 20 MG/2 ML INJ IV SCH (09:36)
[2022-02-22] MEDS: HEPARIN 5,000 UNIT/1 ML VIAL SUB-Q SCH (09:37)
--- NOTE | 2022-02-22 10:44 | Discharge Summary ---
Providers - Providers Date of Admission: 02/21/22 19:59 Date of discharge: 02/22/22 Attending physician: CONG DURBIN MD Primary care physician: MARIAH DE JESUS MD Hospitalization Reason for admission: diabetic hyperosmolar nonketotic state Condition: Stable Hospital course: Patient is a 41-year-old male with history of diabetes and gastroparesis who presented with abdominal pain. Patient was noted to have a blood glucose of 719. He was initially admitted to the ICU for diabetic hyperosmolar nonketotic state. His blood sugars and creatinine improved after IV fluid administration and he was downgraded to med/surg. Patient reports noncompliance with changes to insulin regimen due to inability to pay for it. Patient was discharged with a prescription for his previous insulin regimen. Disposition: 01 HOME / SELF CARE / HOMELESS Final Discharge Diagnosis (Prints w/discharge instructions): Diabetic hyperosmolar nonketotic state. Acute kidney injury secondary to vasomotor nephropathy. Volume depletion. Metabolic acidosis secondary to lactic acidosis. Gastroparesis Time spent for discharge: 30 minutes Core Measure Documentation - Palliative Care Palliative Care/ Comfort Measures: Not Applicable - Core Measures Any of the following diagnoses?: none Exam - Physical Exam Narrative exam: GENERAL: Thin male. In no acute distress. HEENT: Normocephalic. Atraumatic. NECK: Supple. CHEST/LUNGS: CTAB on room air HEART/CARDIOVASCULAR: RRR. No murmur, rubs or gallops appreciated. ABDOMEN: +BS. NT/ND. SKIN: No rashes noted. NEURO: No focal motor deficit. Follows all commands. MUSCULOSKELETAL: No joint effusion EXTREMITIES: No cyanosis, clubbing or edema. PSYCH: Cooperative. - Constitutional Vitals: Temp Pulse Resp BP Pulse Ox 98 F 68 20 128/78 97 02/21/22 20:00 02/22/22 01:14 02/21/22 20:00 02/21/22 20:00 02/22/22 01:14 Plan Care Plan Goals: Please follow up with your primary care provider. Please let them know about your inability to afford the new insulin that they prescribed. Also have them to check a BMP in the next few days. Please check your blood sugar levels and record them when you start using the 70/30 insulin. Follow up with: PRIMARY MD LIZA [Primary Care Provider] - 7 Days Prescriptions: Syringe,Needle,Insuln,Sf 0.5ML [Easy Touch Insulin Safety] 1 each MC TID 30 Days #100 each Other Discharge Orders: Glucometer (Amb) Location: None Selected Glucometer supplies[Amb] Location: None Selected
== END 2022-02-22 13:46 | disposition home or self-care (01) | DRG 637 ==
LOC: ED 11:50 → 4A 19:59
PROVIDERS: ADMIT Internal Medicine; ATTEND Student in an Organized Health Care Education/Training Program
DX: E11.00 Type 2 diabetes mellitus with hyperosmolarity without nonketotic hyperglycemic-hyperosmolar coma (NKHHC) (principal); N17.0 Acute kidney failure with tubular necrosis; R65.10 Systemic inflammatory response syndrome (SIRS) of non-infectious origin without acute organ dysfunction; K31.84 Gastroparesis; I10 Essential (primary) hypertension; F17.200 Nicotine dependence, unspecified, uncomplicated; E11.43 Type 2 diabetes mellitus with diabetic autonomic (poly)neuropathy; E78.2 Mixed hyperlipidemia; Z79.4 Long term (current) use of insulin; Z82.49 Family history of ischemic heart disease and other diseases of the circulatory system; Z88.2 Allergy status to sulfonamides; Z91.14 Patient's other noncompliance with medication regimen
CPT/HCPCS: 36415; 80053; 80307; 80320; 81001; 82140; 82962; 83036; 83690; 83880; 84439; 84443; 85007; 85025; 85610; 85730; 99285; 99406; G0378; J3490; Q9967; G0480; J0696; J1170; J1200; J1630; J1644; J1815; J2250; J2270; J2405; J2765; J7030

== ENCOUNTER 2022-02-23 03:38 | Inpatient (IN) | payer BC ==
[2022-02-23] MEDS ORDERED: SODIUM CHLORIDE 0.9% 1000 ML 1,000 ML IV ONE ×3 (04:11→04:13)
[2022-02-23] MEDS ORDERED: INSULIN REGULAR, HUMAN 100 UNITS/1 ML IV ONE (04:11)
[2022-02-23] MEDS ORDERED: MORPHINE 4 MG/1 ML INJ IV ONE (04:43)
[2022-02-23 04:45] LABS: Basophils # (Auto) 0.1 K/mm3 (0.0-0.1); Basophils % (Auto) 0.7 % (0.0-1.8); Lymphocytes # (Auto) 0.9 K/mm3 (1.2-5.4); Lymphocytes % (Auto) 5.3 % (13.4-35.0); Mean Corpuscular HGB Conc 30 % (32-34); Mean Corpuscular Volume 102 fl (84-94); Monocytes # (Auto) 0.7 K/mm3 (0.0-0.8); Red Blood Count 3.66 M/mm3 (3.65-5.03); Red Cell Distribution Width 14.8 % (13.2-15.2)
[2022-02-23 05:05] LABS: Albumin 4.4 g/dL (3.9-5); Calcium 9.3 mg/dL (8.4-10.2)
[2022-02-23] MEDS ORDERED: SODIUM BICARB 8.4% 50 MEQ/50 ML SYRINGE IV ONE ×2 (05:18→05:19)
[2022-02-23] MEDS ORDERED: ACETAMINOPHEN 325 MG TAB PO PRN ×2 (05:26→05:55)
[2022-02-23] MEDS ORDERED: oxyCODONE /ACETAMINOPHEN 5-325MG TAB PO PRN (05:26)
[2022-02-23 05:27] LABS: Hematocrit 37.2 % (35.5-45.6); Hemoglobin 11.3 gm/dl (11.8-15.2)
[2022-02-23 05:36] LABS: ABG Base Excess -20.9 mmol/L (-2.0-3.0); ABG HCO3 5.4 mmol/L (20.0-26.0); ABG Methemoglobin 0.4 % (0.0-1.5); ABG Oxygen Saturation 97.9 % (95.0-99.0); ABG PCO2 14.9 mm Hg; ABG PO2 119.5 mm Hg (80.0-90.0)
[2022-02-23] MEDS ORDERED: CALCIUM GLUCONATE 1,000 MG in SODIUM CHLORIDE 0.9% 100 ML IV ONE (05:37)
--- NOTE | 2022-02-23 05:37 | Emergency Department Report ---
HPI - General Chief Complaint: Pain General PUI?: No Time Seen by Provider: 02/23/22 03:45 - HPI HPI: 41-year-old male from external triage for weakness fatigue nausea vomiting generalized pain. Of note HPI is limited from perspective of patient as patient during HPI is writhing around on the stretcher, Complaining of "pain to my entire body" and is difficult to redirect. Generalized pain is currently 10 out of 10 per his report. Charge nurse Elton states that she observed the patient having possible seizure- like activity in triage. There was no postictal state per her report. There is no fecal or urinary incontinence or retention. There was no vomiting or foaming at his mouth. ED Past Medical Hx - Past Medical History Previous Medical History?: Yes Hx Hypertension: Yes Hx Congestive Heart Failure: No Hx Diabetes: Yes Hx Seizures: Yes Hx Asthma: No Hx COPD: No Hx HIV: No Additional medical history: Gastritis - Surgical History Past Surgical History?: Yes Additional Surgical History: hernia repair - Social History Smoking Status: Current Every Day Smoker Substance Use Type: Alcohol - Medications Home Medications: Home Medications Medication Instructions Recorded Confirmed Last Taken Type HYDROcodone/APAP 7.5-325 [[place] 1 each PO Q6HR PRN 02/22/22 02/22/22 1 Week Ago History 7.5-325 mg TAB] ~02/15/22 Insulin NPH/Regular [NovoLIN 70/30] 15 unit SUB-Q TID 30 Days #1350 02/22/22 02/22/22 02/12/22 Rx units Syringe,Needle,Insuln,Sf 0.5ML 1 each MC TID 30 Days #100 each 02/22/22 Unknown Rx [Easy Touch Insulin Safety] ED Review of Systems ROS: Stated complaint: SEIZURE Other details as noted in HPI Comment: Unobtainable due to pts medical conditions Physical Exam - Physical Exam Vital Signs: Vital Signs 02/23/22 02/23/22 03:38 04:18 Temperature 97.7 F Pulse Rate 127 H 124 H Respiratory 36 H 30 H Rate Blood Pressure 156/72 Blood Pressure 156/78 [Left] O2 Sat by Pulse 100 100 Oximetry General: Gen: adult male, disheveled, writhing on stretcher, c/o "my body is hurting everywhere!!" moderate distress HEENT: Normocephalic atraumatic pupils equally round and reactive to light extraocular muscles intact sclera anicteric Neck: Full range of motion, no midline spinal tenderness palpation, no JVD, no carotid bruits, no nuchal rigidity CVS: S1-S2 regular rate and rhythm with no gallops rubs or murmurs, chest wall nontender Pulmonary: Clear to auscultation bilaterally, no wheezes rales or rhonchi Abdomen: Soft nondistended nontender no guarding or rebound tenderness, no palpable deformities or step-offs, normal active bowel sounds, no hepatosplenomegaly, no pulsatile masses : Deferred Extremities: No cyanosis no clubbing no edema, intact distal peripheral pulses, Integumentary: pt has multple areas of discoloration to arms and legs in different stages and hyperpigmentations; no petechia no purpura no abscess no lacerations no evidence of trauma no evidence of infection Neuro: Patient is awake alert and oriented to person place time situation, agitated; moving all extremities spontaneously, no seizure-like activity, no focal neurological deficits Psych: agitated; difficult to redirect ED Course Vital Signs 02/23/22 02/23/22 03:38 04:18 Temperature 97.7 F Pulse Rate 127 H 124 H Respiratory 36 H 30 H Rate Blood Pressure 156/72 Blood Pressure 156/78 [Left] O2 Sat by Pulse 100 100 Oximetry - Consultations Consultation #1: 02/23/22 05:26: Dr. Tabitha Mcadams, customer operations manager eyeglass inspector, informed of patient's presence in ER and the pt's impending admission to the MICU via Dr. Hopkins ED Medical Decision Making - Lab Data Result diagrams: 02/23/22 04:18 02/23/22 04:18 - EKG Data -: EKG Interpreted by Az Rate: tachycardia - EKG Data When compared to previous EKG there are: no significant change - Radiology Data Radiology results: pending - Medical Decision Making 41-year-old male with multiple medical comorbidities presents for complaints of generalized pain is found to be in diabetic ketoacidosis with significant elevated anion gap of metabolic acidosis and hyperkalemia. Patient given multiple liters of normal saline, given insulin push, started on insulin drip, given multiple rounds of bicarbonate, ordered for bicarbonate drip, and given ca lcium gluconate. Case reviewed with admitting laundry presser, Dr. Hopkins. He is agreed to accept the patient for admission to the medical intensive care unit for management of the aforementioned pathologies above Please note at the timing of the dictation as of this note, the patient's CT head remains pending. Due to change in provider shift time, CT head results to be followed up by ED attending, Dr. Joe Castelan. Critical Care Time: Yes Critical care time in (mins) excluding proc time.: 30 Critical care attestation.: If time is entered above; I have spent that time in minutes in the direct care of this critically ill patient, excluding procedure time. ED Disposition Clinical Impression: DKA (diabetic ketoacidosis), Hyperkalemia, Lactic acidosis Disposition: 09 ADMITTED INPATIENT Is pt being admited?: Yes Does the pt Need Aspirin: No Condition: Stable Instructions: Diabetic Ketoacidosis (ED) Referrals: PRIMARY CARE, [Primary Care Provider] - 3-5 Days
[2022-02-23 05:53] LABS: ABG PH 7.181 pH Units (7.350-7.450)
[2022-02-23] MEDS ORDERED: MORPHINE 4 MG/1 ML INJ IV PRN (05:55)
[2022-02-23] MEDS ORDERED: ALBUTEROL 2.5 MG/3 ML NEBU IH PRN (05:55)
[2022-02-23] MEDS ORDERED: ONDANSETRON 4 MG/2 ML INJ IV PRN (05:55)
[2022-02-23] MEDS ORDERED: INSULIN REGULAR, HUMAN 100 UNITS in SODIUM CHLORIDE 0.9% 99 ML IV SCH ×2 (06:00)
[2022-02-23] MEDS ORDERED: CALC GLUCONATE 1GM/NS 100 ML 1 GM/100 ML BAG IV ONE (06:00)
[2022-02-23] MEDS ORDERED: SODIUM CHLORIDE 0.45% 1000 ML 1,000 ML IV SCH (06:00)
--- NOTE | 2022-02-23 06:04 | History and Physical Report ---
History of Present Illness Date of examination: 02/23/22 Date of admission: 02/23/22 05:27 Chief complaint: Pain General History of present illness: 41-year-old male with history of diabetes was brought to the emergency room because of weakness fatigue nausea vomiting generalized pain. Of note HPI is limited from perspective of patient as patient during HPI is writhing around on the stretcher, Complaining of "pain to my entire body" and is difficult to redirect. Generalized pain is currently 10 out of 10 per his report. In the emergency room patient WBC 17.5, pH 7.181, PCO2 41.9, blood glucose 747, lactic acid 6.10, BUN 37 creatinine 2.8, potassium 7.3 bicarb 4 .patient is found diabetic ketoacidosis with significant elevated anion gap of metabolic acidosis and hyperkalemia. Patient given multiple liters of normal saline, given insulin push, started on insulin drip, given multiple rounds of bicarbonate, ordered for bicarbonate drip, and given calcium gluconate. Will consult critical care and nephrology for evaluation Past History Past Medical History: diabetes, GERD, hypertension, seizures Past Surgical History: Other (Hernia repair) Social history: smoking Family history: diabetes, hypertension Medications and Allergies Allergies Allergy/AdvReac Type Severity Reaction Status Date / Time Sulfa (Sulfonamide Allergy Itching Verified 02/22/22 10:17 Antibiotics) Home Medications Medication Instructions Recorded Confirmed Last Taken Type HYDROcodone/APAP 7.5-325 [[place] 1 each PO Q6HR PRN 02/22/22 02/22/22 1 Week Ago History 7.5-325 mg TAB] ~02/15/22 Insulin NPH/Regular [NovoLIN 70/30] 15 unit SUB-Q TID 30 Days #1350 02/22/22 02/22/22 02/12/22 Rx units Syringe,Needle,Insuln,Sf 0.5ML 1 each MC TID 30 Days #100 each 02/22/22 Unknown Rx [Easy Touch Insulin Safety] Active Meds: Active Medications Acetaminophen (Acetaminophen 325 Mg Tab) 650 mg PO Q6H PRN PRN Reason: Pain MILD(1-3)/Fever >100.5/HUSSEIN Insulin Human Regular 100 (units/ Sodium Chloride) 100 mls @ 1 mls/hr IV TITR MARCUS; Protocol CALC GLUCONATE 1GM/NS 100 ML (Calcium Gluonate/Ns 1,000mg/100ml) 1 gm in 100 mls @ 375 mls/hr IV ONCE ONE Stop: 02/23/22 06:15 Oxycodone/Acetaminophen (Oxycodone /Acetaminophen 5-325mg Tab) 1 tab PO Q6H PRN PRN Reason: Pain, Moderate (4-6) Sodium Chloride (Sodium Chloride 0.9% 10 Ml Flush Syringe) 10 ml IV BID MARCUS Sodium Chloride (Sodium Chloride 0.9% 10 Ml Flush Syringe) 10 ml IV PRN PRN PRN Reason: LINE FLUSH Review of Systems All systems: negative Constitutional: other (Generalized pain) Gastrointestinal: abdominal pain, nausea, vomiting Exam - Constitutional Vitals: Temp Pulse Resp BP Pulse Ox 97.7 F 124 H 30 H 156/78 100 02/23/22 03:38 02/23/22 04:18 02/23/22 04:18 02/23/22 04:18 02/23/22 04:18 General appearance: Present: no acute distress, well-nourished - EENT Eyes: Present: PERRL ENT: hearing intact, clear oral mucosa - Neck Neck: Present: supple, normal ROM - Respiratory Respiratory effort: normal Respiratory: bilateral: CTA - Cardiovascular Heart Sounds: Present: S1 & S2. Absent: rub, click - Extremities Extremities: pulses symmetrical, No edema Peripheral Pulses: within normal limits - Abdominal General gastrointestinal: Present: soft, non-tender, non-distended, normal bowel sounds Male genitourinary: Present: normal - Integumentary Integumentary: Present: clear, warm, dry - Musculoskeletal Musculoskeletal: gait normal, strength equal bilaterally - Psychiatric Psychiatric: appropriate mood/affect, intact judgment & insight - Neurologic Neurologic: CNII-XII intact, moves all extremities Results - Labs CBC & Chem 7: 02/23/22 04:18 02/23/22 04:18 Labs: Laboratory Last Values WBC 17.5 K/mm3 (4.5-11.0) H 02/23/22 04:18 RBC 3.66 M/mm3 (3.65-5.03) 02/23/22 04:18 Hgb 11.3 gm/dl (11.8-15.2) L 02/23/22 04:18 Hct 37.2 % (35.5-45.6) 02/23/22 04:18 MCV 102 fl (84-94) H 02/23/22 04:18 MCH 31 pg (28-32) 02/23/22 04:18 MCHC 30 % (32-34) L 02/23/22 04:18 RDW 14.8 % (13.2-15.2) 02/23/22 04:18 Lymph % (Auto) 5.3 % (13.4-35.0) L 02/23/22 04:18 [place] % (Auto) 4.0 % (0.0-7.3) 02/23/22 04:18 Eos % (Auto) 0.0 % (0.0-4.3) 02/23/22 04:18 Baso % (Auto) 0.7 % (0.0-1.8) 02/23/22 04:18 Lymph # (Auto) 0.9 K/mm3 (1.2-5.4) L 02/23/22 04:18 Warren # (Auto) 0.7 K/mm3 (0.0-0.8) 02/23/22 04:18 Eos # (Auto) 0.0 K/mm3 (0.0-0.4) 02/23/22 04:18 Baso # (Auto) 0.1 K/mm3 (0.0-0.1) 02/23/22 04:18 Seg Neutrophils % 90.0 % (40.0-70.0) H 02/23/22 04:18 Seg Neutrophils # 15.8 K/mm3 (1.8-7.7) H 02/23/22 04:18 ABG pH 7.181 pH Units (7.350-7.450) L* 02/23/22 05:10 ABG pCO2 14.9 mm Hg 02/23/22 05:10 ABG pO2 119.5 mm Hg (80.0-90.0) H 02/23/22 05:10 ABG HCO3 5.4 mmol/L (20.0-26.0) L 02/23/22 05:10 ABG O2 Saturation 97.9 % (95.0-99.0) 02/23/22 05:10 ABG O2 Content 12.0 (0.0-44) 02/23/22 05:10 ABG Base Excess -20.9 mmol/L (-2.0-3.0) L 02/23/22 05:10 ABG Hemoglobin 8.7 gm/dl (14.0-18.0) L 02/23/22 05:10 ABG Carboxyhemoglobin 1.4 % (0.0-5.0) 02/23/22 05:10 ABG Methemoglobin 0.4 % (0.0-1.5) 02/23/22 05:10 Oxyhemoglobin 96.0 % (95.0-99.0) 02/23/22 05:10 FiO2 21 % 02/23/22 05:10 Sodium 125 mmol/L (137-145) L D 02/23/22 04:18 Potassium 7.3 mmol/L (3.6-5.0) H* D 02/23/22 04:18 Chloride 82.7 mmol/L (98-107) L 02/23/22 04:18 Carbon Dioxide 4 mmol/L (22-30) L* D 02/23/22 04:18 Anion Gap 46 mmol/L 02/23/22 04:18 BUN 37 mg/dL (9-20) H 02/23/22 04:18 Creatinine 2.8 mg/dL (0.8-1.3) H D 02/23/22 04:18 Estimated GFR 30 ml/min 02/23/22 04:18 BUN/Creatinine Ratio 13 % 02/23/22 04:18 Glucose 747 mg/dL (75-100) H* 02/23/22 04:18 Lactic Acid 6.10 mmol/L (0.7-2.0) H* 02/23/22 04:18 Calcium 9.3 mg/dL (8.4-10.2) 02/23/22 04:18 Magnesium 2.40 mg/dL (1.7-2.3) H 02/23/22 04:18 Total Bilirubin 0.40 mg/dL (0.1-1.2) 02/23/22 04:18 AST 47 units/L (5-40) H 02/23/22 04:18 ALT 21 units/L (7-56) 02/23/22 04:18 Alkaline Phosphatase 171 units/L (35-129) H 02/23/22 04:18 Total Protein 7.8 g/dL (6.3-8.2) 02/23/22 04:18 Albumin 4.4 g/dL (3.9-5) 02/23/22 04:18 Albumin/Globulin Ratio 1.3 % 02/23/22 04:18 Plasma/Serum Alcohol < 0.01 % (0-0.07) 02/23/22 04:18 Assessment and Plan VTE prophylaxis?: Mechanical Plan of care discussed with patient/family: Yes - Patient Problems (1) DKA (diabetic ketoacidosis) Current Visit: Yes Status: Acute Plan to address problem: Admit the patient to the critical care unit. NPO. Half-normal saline at the rate of 150 cc/h. Insulin drip as per protocol. Bicarb push. Serial BMP. Consult critical care evaluation. Recheck BMP in the morning (2) Seizure Current Visit: Yes Status: Acute Plan to address problem: Stable. We continue the home medication (3) Hyperkalemia Current Visit: Yes Status: Acute Plan to address problem: NPO. Half-normal saline at the rate of 150 cc/h. Insulin drip as per protocol. Bicarb push, Kayexalate and patient is given calcium gluconate. Serial BMP. Nephrology evaluation. Recheck BMP in the morning (4) Lactic acidosis Current Visit: Yes Status: Acute Plan to address problem: NPO. Half-normal saline at the rate of 150 cc/h. Rocephin 2 g IV daily. Recheck lactic acid (5) KARLO (acute kidney injury) Current Visit: No Status: Acute Plan to address problem: Avoid nephrotoxic drug. Renally dose medication. Half-normal saline at the rate of 150 cc/h. Nephrology evaluation. Recheck BMP in the morning (6) Abdominal pain Current Visit: No Status: Acute Qualifiers: Abdominal location: epigastric Qualified Code(s): R10.13 - Epigastric pain Plan to address problem: Pepcid 20 mg p.o. twice daily. Morphine 2 mg IV every 4 hours as needed (7) Hypertension Current Visit: No Status: Acute Qualifiers: Hypertension type: primary hypertension Qualified Code(s): I10 - Essential (primary) hypertension Plan to address problem: Hydralazine 10 mg IV every 6 hours as needed. We continue the home medication (8) SIRS (systemic inflammatory response syndrome) Current Visit: No Status: Acute Plan to address problem: Rocephin 2 g IV daily. Half-normal saline at the rate of 150 cc/h. Blood culture. Recheck CBC in the morning (9) DVT prophylaxis Current Visit: Yes Status: Acute Plan to address problem: SCD for DVT prophylaxis. Pepcid 20 mg p.o. twice daily for GI prophylaxis. Patient is a full code
--- NOTE | 2022-02-23 06:12 | Cat Scan Report ---
CT HEAD WITHOUT CONTRAST INDICATION / CLINICAL INFORMATION: seizure like activity. TECHNIQUE: CT head was performed without administration of intravenous contrast. All CT scans at this location are performed using CT dose reduction for ALARA by means of automated exposure control. COMPARISON: None available. FINDINGS: CEREBRAL HEMISPHERES: There is no evidence of large territorial infarction or significant abnormality of mejias-white matter differentiation. Ventricles within normal limits. No midline shift. Basal ciste rns patent. HEMORRHAGE: None. CEREBELLUM / BRAINSTEM: No significant abnormality. ORBITS: No significant abnormality. SOFT TISSUES: Left occipital scalp contusion. No underlying fracture. SKULL: No significant abnormality. PARANASAL SINUSES / MASTOID AIR CELLS: Normal as visualized. ADDITIONAL FINDINGS: None. IMPRESSION: 1. No acute intracranial abnormality. Left occipital scalp contusion. Signer Name: Javier Singh II, MD Signed: 02/23/2022 6:08 AM Workstation Name: [id number]
[2022-02-23 06:32] LABS: Platelet Count 207 K/mm3 (140-440)
[2022-02-23 06:39] LABS: Calcium 8.3 mg/dL (8.4-10.2)
--- NOTE | 2022-02-23 07:49 | Consultation ---
History of Present Illness - Reason for Consult Consult date: 02/23/22 acute renal failure Requesting physician: MICHELLE PARHAM - History of Present Illness 41-year-old male who is not known to me with a history of type 1 diabetes mellitus since age 16 presents with fatigue, weakness, nausea vomiting and pain all over. Had seizure-like activity in triage in the ER. No fecal or urinary incontinence. No foaming at the mouth. Complains that he is in a lot of pain. On presentation, blood sugar was 747 with bicarb of 4, sodium 125 and potassium high at 7.3 mmol/L. Lactic acid level was high at 6.1. Patient was started on insulin drip, half-normal saline, given IV bicarb and labs are being drawn serially. Consulted to assist in managing kidney failure and electrolyte abnormalities. Patient is a poor historian. He does deny any voiding difficulties but he complains of pain and is not willing or able to participate in answering all the questions being posed to him. Past History Past Medical History: diabetes, GERD, hypertension, seizures Past Surgical History: Other (Hernia repair) Social history: smoking Family history: diabetes, hypertension Medications and Allergies Allergies Allergy/AdvReac Type Severity Reaction Status Date / Time Sulfa (Sulfonamide Allergy Itching Verified 02/22/22 10:17 Antibiotics) Home Medications Medication Instructions Recorded Confirmed Last Taken Type HYDROcodone/APAP 7.5-325 [[place] 1 each PO Q6HR PRN 02/22/22 02/22/22 1 Week Ago History 7.5-325 mg TAB] ~02/15/22 Insulin NPH/Regular [NovoLIN 70/30] 15 unit SUB-Q TID 30 Days #1350 02/22/22 02/22/22 02/12/22 Rx units Syringe,Needle,Insuln,Sf 0.5ML 1 each MC TID 30 Days #100 each 02/22/22 Unknown Rx [Easy Touch Insulin Safety] Active Meds: Active Medications Acetaminophen (Acetaminophen 325 Mg Tab) 650 mg PO Q4H PRN PRN Reason: Pain MILD(1-3)/Fever >100.5/HUSSEIN Albuterol (Albuterol 2.5 Mg/3 Ml Nebu) 2.5 mg IH Q4HRT PRN PRN Reason: Shortness Of Breath Albuterol/Ipratropium (Ipratropium/Albuterol Sulfate 3 Ml Ampul.Neb) 1 ampul IH Q6HRT MARCUS Dextrose (Dextrose 50% In Water (25gm) 50 Ml Syringe) 0 ml IV Q30MIN PRN; Protocol PRN Reason: Hypoglycemia Famotidine (Famotidine 20 Mg Tab) 20 mg PO QAM MARCUS Insulin Human Regular 100 (units/ Sodium Chloride) 100 mls @ 1 mls/hr IV TITR MARCUS; Protocol Sodium Chloride (Nacl 0.45% 1000 Ml) 1,000 mls @ 150 mls/hr IV DIRECT MARCUS Potassium Chloride/Dextrose/Sod Cl (D5w/0.45% Nacl/Kcl 20 Meq) 20 meq in 1,000 mls @ 125 mls/hr IV DIRECT MARCUS Morphine Sulfate (Morphine 2 Mg/1 Ml Inj) 2 mg IV Q4H PRN PRN Reason: Pain, Moderate (4-6) Morphine Sulfate (Morphine 4 Mg/1 Ml Inj) 4 mg IV Q4H PRN PRN Reason: Pain , Severe (7-10) Ondansetron HCl (Ondansetron 4 Mg/2 Ml Inj) 4 mg IV Q8H PRN PRN Reason: Nausea And Vomiting Oxycodone/Acetaminophen (Oxycodone /Acetaminophen 5-325mg Tab) 1 tab PO Q6H PRN PRN Reason: Pain, Moderate (4-6) Sodium Chloride (Sodium Chloride 0.9% 10 Ml Flush Syringe) 10 ml IV BID MARCUS Sodium Chloride (Sodium Chloride 0.9% 10 Ml Flush Syringe) 10 ml IV PRN PRN PRN Reason: LINE FLUSH Review of Systems All systems: negative (As noted in history of present illness. Patient did not cooperate with answering all the questions) Exam - Vital Signs Vital signs: Vital Signs Temp Pulse Resp BP Pulse Ox 97.7 F 127 H 36 H 156/72 100 02/23/22 03:38 02/23/22 03:38 02/23/22 03:38 02/23/22 03:38 02/23/22 03:38 - Physical Exam Narrative exam: Young -Spanish male lying in bed in mild distress due to pain HEENT: NCAT, pink oral mucous membrane Neck: Supple, no venous distention CVS: S1S2 RRR with no murmur, rub or gallop Chest: Clear to auscultation Abdomen: Protuberant, soft, nontender, no organomegaly, bowel sounds are present Extremities: No edema Genitourinary deferred Skin hyperpigmented spots/scars in both legs. Splint right ankle Neuro: Awake, alert no focal deficits Results - Lab Results 02/23/22 04:18 02/23/22 06:06 Most recent lab results ABG pH 7.181 pH Units (7.350-7.450) L* 02/23/22 05:10 ABG pCO2 14.9 mm Hg 02/23/22 05:10 ABG pO2 119.5 mm Hg (80.0-90.0) H 02/23/22 05:10 ABG HCO3 5.4 mmol/L (20.0-26.0) L 02/23/22 05:10 ABG O2 Saturation 97.9 % (95.0-99.0) 02/23/22 05:10 Calcium 8.3 mg/dL (8.4-10.2) L 02/23/22 06:06 Phosphorus 4.60 mg/dL (2.5-4.5) H 02/23/22 06:06 Magnesium 2.20 mg/dL (1.7-2.3) 02/23/22 06:06 Assessment and Plan - Patient Problems (1) KARLO (acute kidney injury) Current Visit: No Status: Acute Plan to address problem: Volume depletion secondary to GI losses and also renal losses from osmotic diuresis due to hyperglycemia. Get urine studies. Get kidney and bladder ultrasound. Continue volume repletion and follow-up electrolytes and renal function. (2) DKA (diabetic ketoacidosis) Current Visit: Yes Status: Acute Plan to address problem: Continue insulin drip and volume repletion with hypotonic saline (3) Hyperkalemia Current Visit: Yes Status: Acute Plan to address problem: Improved with aggressive medical management. Follow-up potassium level (4) Lactic acidosis Current Visit: Yes Status: Acute Plan to address problem: Secondary to hypoperfusion. Follow-up lactic acid (5) Seizure Current Visit: Yes Status: Acute Plan to address problem: Management by primary attending. (6) Abdominal pain Current Visit: No Status: Acute Qualifiers: Abdominal location: epigastric Qualified Code(s): R10.13 - Epigastric pain Plan to address problem: Suspect related to diabetic ketoacidosis. Monitor symptoms (7) Hypertension Current Visit: No Status: Acute Qualifiers: Hypertension type: primary hypertension Qualified Code(s): I10 - Essential (primary) hypertension Plan to address problem: Follow-up blood pressure
[2022-02-23] MEDS ORDERED: IPRATROPIUM/ALBUTEROL SULFATE 3 ML AMPUL.NEB IH SCH (08:00)
[2022-02-23 08:37] LABS: Mucus,Urine FEW /HPF; RBC,Urine < 1.0 /HPF (0.0-6.0); WBC,Urine < 1.0 /HPF (0.0-6.0)
[2022-02-23 08:39] LABS: Amphetamine Screen,Urine Negative; Benzodiazepines Screen,Urine Negative; Cocaine Screen,Urine Negative; Methadone Screen,Urine Negative; Opiate Screen,Urine Negative
--- NOTE | 2022-02-23 08:41 | Electrocardiograph Report ---
[facility] Test Date: 2022-02-23 Test Time: 04:33:03 Pat Name: MANISH CELESTE Department: Room: [place] [address] Gender: M Stem Mounter: GONZALES : 1980 Requested By: CARLTON SKELTON Order Number: [id number] Reading MD: Sravan Milton Measurements Intervals [place] Rate: 122 P: 55 MI: 135 QRS: 78 QRSD: 83 T: 2 QT: 340 QTc: 485 Interpretive Statements Sinus tachycardia Probable left atrial enlargement Probable left ventricular hypertrophy nonspecific st-t Compared to ECG 11/12/2021 13:40:23 ST (T wave) deviation now present Sinus arrhythmia no longer present Electronically Signed On 02-23-2022 8:41:27 EDT by Sravan Milton
[2022-02-23 08:43] LABS: Color,Urine Straw (Yellow)
[2022-02-23 08:55] LABS: Cannabinoid Screen,Urine Positive
--- NOTE | 2022-02-23 09:20 | Progress Note ---
Assessment and Plan Assessment and plan: History of Present Illness: 41-year-old male with history of diabetes was brought to the emergency room because of weakness fatigue nausea vomiting generalized pain. Of note HPI is limited from perspective of patient as patient during HPI is writhing around on the stretcher, Complaining of "pain to my entire body" and is difficult to redirect. Generalized pain is currently 10 out of 10 per his report. In the emergency room patient WBC 17.5, pH 7.181, PCO2 41.9, blood glucose 747, lactic acid 6.10, BUN 37 creatinine 2.8, potassium 7.3 bicarb 4 .patient is found diabetic ketoacidosis with significant elevated anion gap of metabolic acidosis and hyperkalemia. Patient given multiple liters of normal saline, given insulin push, started on insulin drip, given multiple rounds of bicarbonate, ordered for bicarbonate drip, and given calcium gluconate. Will consult critical care and nephrology for evaluation Hospital Course: 02/23: Continue insulin gtt and IVF. Patient complaining of severe right heel pain. upon unwrapping dressing, open wound approximately 3 cm in diameter with exposed bone visualized. Initiated on unasyn IV for empiric coverage. Orthopedic surgery, Dr. Turcios consulted. Assessment and Plan: #Diabetic ketoacidosis #Metabolic Acidosis #Type 2 Diabetes with Hyperglycemia - A , BG in 403, ketonuria, abg ph 7.181, bicarb; 4 on admission - weakness, N/V. severe leg pain. - DKA protocol: IV insulin, IVF. - bicarb ordered - NPO until AG closes - once AG closed (< 14), can start lantus 10 mg subq. Please run insulin gtt 1hr after lantus admin. Can initiate diabetic diet as well - accuchecks q1 hr until AG closed - BMP q4hr until AG closed #posterior calcaneal fracture - open wound on posterior aspect of right heel. 3 cm wound with exposed bone visualized. Per chart review, acquired when [facility] - per hx and chart review, patient acquired this on 01/23 and was seen in our emergency department. XR foot at the time demonstrated posterior calcaneal fracture. however patient was discharged and advised to see ortho OP for OP surgery. Patient did not see surgery in thi stime period. - morphine and percocet for pain control - Unasyn IV for abx coverage. - wound care consultation - orthopedic surgery consulted. discussed case with Dr. 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 #Hyperkalemia - K 7.3, correct with IV insulin gtt - given calcium gluconate and bicarb - repeat 4.9. #Lactic acidosis #SIRS POA - largely driven by DKA, doubt infectious etiology #Acute kidney injury due to vasomotor nephropathy - Cr 2.7 on admission - IVF resuscitation - avoid nephrotoxins - trend on serial bmp #Hypertension - elevated BP readings likely secondary to pain - will continue to monitor while in hospital. hold tx for now. #Advance care planning Disease education conducted, care plan discussed, diagnoses discussed, prognosis discussed, patient is full code, patient acknowledges understanding and agree with care plan, discussed about patient clinical course and answered all questions to satisfaction. +30 minutes. +30 minutes. The high probability of a clinically significant, sudden or life threatening deterioration of the [multi] system(s) required my full and direct attention, intervention and personal management. The aggregate critical care time was [60] minutes. This time is in addition to time spent performing reported procedures but includes the following: [x] Data Review and interpretation [x] Patient assessment and monitoring of vital signs [x] Documentation [x] Medication orders and management History Interval history: Complaining of severe leg pain. Unwrapped dressing on right foot/ankle revealed 3 cm wound in posterior aspect of right heel with exposed bone. Advised care team to admin IV pain control. Foot elevated and redressed. Hospitalist Physical - Physical exam Narrative exam: Physical Exam: VITAL SIGNS: Reviewed. GENERAL: The patient appears normally developed, Vital signs as documented. Moderate distress HEAD: No signs of head trauma. EYES: Pupils are equal. Extraocular motions intact. EARS: Hearing grossly intact. MOUTH: Oropharynx is normal. NECK: No adenopathy, no JVD. CHEST: Chest with clear breath sounds bilaterally. No wheezes, rales, or rhonchi. CARDIAC: Regular rate and rhythm. S1 and S2, without murmurs, gallops, or r ubs. VASCULAR: No Edema. Peripheral pulses normal and equal in all extremities. ABDOMEN: Soft, non tender and non distended. No rebound or guarding, and no masses palpated. Bowel Sounds normal. MUSCULOSKELETAL: Good range of motion of all major joints. Extremities without clubbing, cyanosis or edema. NEUROLOGIC EXAM: Alert and oriented x 4. no focal sensory or strength deficits. PSYCHIATRIC: Mood normal. SKIN: Wound in the area of right heel. Appears to have calcaneus bone protru ding through wound. Detail exam as documented in skin assessment - Constitutional Vitals: Temp Pulse Resp BP Pulse Ox 98.2 F 97 H 13 122/70 99 02/23/22 08:03 02/23/22 08:03 02/23/22 08:03 02/23/22 08:03 02/23/22 08:03 General appearance: Present: no acute distress, well-nourished Results - Labs CBC & Chem 7: 02/23/22 04:18 02/23/22 06:06 Labs: Laboratory Last Values WBC 17.5 K/mm3 (4.5-11.0) H 02/23/22 04:18 RBC 3.66 M/mm3 (3.65-5.03) 02/23/22 04:18 Hgb 11.3 gm/dl (11.8-15.2) L 02/23/22 04:18 Hct 37.2 % (35.5-45.6) 02/23/22 04:18 MCV 102 fl (84-94) H 02/23/22 04:18 MCH 31 pg (28-32) 02/23/22 04:18 MCHC 30 % (32-34) L 02/23/22 04:18 RDW 14.8 % (13.2-15.2) 02/23/22 04:18 Plt Count 207 K/mm3 (140-440) 02/23/22 04:18 Lymph % (Auto) 5.3 % (13.4-35.0) L 02/23/22 04:18 [place] % (Auto) 4.0 % (0.0-7.3) 02/23/22 04:18 Eos % (Auto) 0.0 % (0.0-4.3) 02/23/22 04:18 Baso % (Auto) 0.7 % (0.0-1.8) 02/23/22 04:18 Lymph # (Auto) 0.9 K/mm3 (1.2-5.4) L 02/23/22 04:18 [place] # (Auto) 0.7 K/mm3 (0.0-0.8) 02/23/22 04:18 Eos # (Auto) 0.0 K/mm3 (0.0-0.4) 02/23/22 04:18 Baso # (Auto) 0.1 K/mm3 (0.0-0.1) 02/23/22 04:18 Seg Neutrophils % 90.0 % (40.0-70.0) H 02/23/22 04:18 Seg Neutrophils # 15.8 K/mm3 (1.8-7.7) H 02/23/22 04:18 ABG pH 7.181 pH Units (7.350-7.450) L* 02/23/22 05:10 ABG pCO2 14.9 mm Hg 02/23/22 05:10 ABG pO2 119.5 mm Hg (80.0-90.0) H 02/23/22 05:10 ABG HCO3 5.4 mmol/L (20.0-26.0) L 02/23/22 05:10 ABG O2 Saturation 97.9 % (95.0-99.0) 02/23/22 05:10 ABG O2 Content 12.0 (0.0-44) 02/23/22 05:10 ABG Base Excess -20.9 mmol/L (-2.0-3.0) L 02/23/22 05:10 ABG Hemoglobin 8.7 gm/dl (14.0-18.0) L 02/23/22 05:10 ABG Carboxyhemoglobin 1.4 % (0.0-5.0) 02/23/22 05:10 ABG Methemoglobin 0.4 % (0.0-1.5) 02/23/22 05:10 Oxyhemoglobin 96.0 % (95.0-99.0) 02/23/22 05:10 FiO2 21 % 02/23/22 05:10 Sodium 132 mmol/L (137-145) L D 02/23/22 06:06 Potassium 4.9 mmol/L (3.6-5.0) D 02/23/22 06:06 Chloride 92.2 mmol/L (98-107) L 02/23/22 06:06 Carbon Dioxide 10 mmol/L (22-30) L 02/23/22 06:06 Anion Gap 35 mmol/L 02/23/22 06:06 BUN 36 mg/dL (9-20) H 02/23/22 06:06 Creatinine 2.7 mg/dL (0.8-1.3) H 02/23/22 06:06 Estimated GFR 31 ml/min 02/23/22 06:06 BUN/Creatinine Ratio 13 % 02/23/22 06:06 Glucose 403 mg/dL (75-100) H 02/23/22 06:06 Lactic Acid 4.50 mmol/L (0.7-2.0) H* 02/23/22 05:23 Calcium 8.3 mg/dL (8.4-10.2) L 02/23/22 06:06 Phosphorus 4.60 mg/dL (2.5-4.5) H 02/23/22 06:06 Magnesium 2.20 mg/dL (1.7-2.3) 02/23/22 06:06 Total Bilirubin 0.40 mg/dL (0.1-1.2) 02/23/22 04:18 AST 47 units/L (5-40) H 02/23/22 04:18 ALT 21 units/L (7-56) 02/23/22 04:18 Alkaline Phosphatase 171 units/L (35-129) H 02/23/22 04:18 Total Protein 7.8 g/dL (6.3-8.2) 02/23/22 04:18 Albumin 4.4 g/dL (3.9-5) 02/23/22 04:18 Albumin/Globulin Ratio 1.3 % 02/23/22 04:18 Urine Color Straw (Yellow) 02/23/22 08:03 Urine Turbidity Clear (Clear) 02/23/22 08:03 Specific [place] (Man) 1.015 (1.003-1.030) 02/23/22 08:03 Ur Protein (Man) 2+ mg/dL (Negative) 02/23/22 08:03 Ur Ketones (Man) 80 (Negative) 02/23/22 08:03 Urine Bilirubin (Man) Negative (Negative) 02/23/22 08:03 Urine WBC (Auto) < 1.0 /HPF (0.0-6.0) 02/23/22 08:03 Urine RBC (Auto) < 1.0 /HPF (0.0-6.0) 02/23/22 08:03 U Epithel Cells (Auto) < 1.0 /HPF (0-13.0) 02/23/22 08:03 Urine RBC (Manual) 2+ (Negative) 02/23/22 08:03 Urine Mucus Few /HPF 02/23/22 08:03 Urine Opiates Screen Negative 02/23/22 08:03 Urine Methadone Screen Negative 02/23/22 08:03 Ur Barbiturates Screen Negative 02/23/22 08:03 Ur Phencyclidine Scrn Negative 02/23/22 08:03 Ur Amphetamines Screen Negative 02/23/22 08:03 U Benzodiazepines Scrn Negative 02/23/22 08:03 Urine Cocaine Screen Negative 02/23/22 08:03 U Marijuana (THC) Screen Positive 02/23/22 08:03 Drugs of Abuse Note Disclamer 02/23/22 08:03 Plasma/Serum Alcohol < 0.01 % (0-0.07) 02/23/22 04:18 Active Medications - Current Medications Current Medications: Generic Name Dose Route Start Last Admin Trade Name Freq PRN Reason Stop Dose Admin Acetaminophen 650 mg 02/23/22 05:55 Acetaminophen 325 Mg Tab PO Q4H PRN Pain MILD(1-3)/Fever >100.5/HUSSEIN Albuterol 2.5 mg 02/23/22 05:55 Albuterol 2.5 Mg/3 Ml Nebu IH Q4HRT PRN Shortness Of Breath Albuterol/Ipratropium 1 ampul 02/23/22 08:00 Ipratropium/Albuterol Sulfate 3 Ml Ampul.Neb IH Q6HRT MARCUS Dextrose 0 ml 02/23/22 05:55 Dextrose 50% In Water (25gm) 50 Ml Syringe IV Q30MIN PRN Hypoglycemia Protocol Famotidine 20 mg 02/23/22 10:00 Famotidine 20 Mg Tab PO QAM MARCUS Insulin Human Regular 100 100 mls @ 1 mls/hr 02/23/22 06:00 02/23/22 09:08 units/ Sodium Chloride IV 6 units/hr TITR MARCUS 6 mls/hr Administration Protocol 1 UNITS/HR Sodium Chloride 1,000 mls @ 150 mls/hr 02/23/22 06:00 Nacl 0.45% 1000 Ml IV DIRECT MARCUS Potassium Chloride/Dextrose/Sod Cl 20 meq in 1,000 mls @ 125 mls/hr 02/23/22 06:00 D5w/0.45% Nacl/Kcl 20 Meq IV DIRECT MARCUS Morphine Sulfate 2 mg 02/23/22 05:55 Morphine 2 Mg/1 Ml Inj IV Q4H PRN Pain, Moderate (4-6) Morphine Sulfate 4 mg 02/23/22 05:55 Morphine 4 Mg/1 Ml Inj IV Q4H PRN Pain , Severe (7-10) Ondansetron HCl 4 mg 02/23/22 05:55 Ondansetron 4 Mg/2 Ml Inj IV Q8H PRN Nausea And Vomiting Oxycodone/Acetaminophen 1 tab 02/23/22 05:26 Oxycodone /Acetaminophen 5-325mg Tab PO Q6H PRN Pain, Moderate (4-6) Sodium Chloride 10 ml 02/23/22 10:00 Sodium Chloride 0.9% 10 Ml Flush Syringe IV BID MARCUS Sodium Chloride 10 ml 02/23/22 05:26 Sodium Chloride 0.9% 10 Ml Flush Syringe IV PRN PRN LINE FLUSH
[2022-02-23] MEDS ORDERED: HYDROmorphone 2 MG/1 ML INJ IV ONE ×2 (09:46→15:00)
--- NOTE | 2022-02-23 11:13 | Consultation ---
History of Present Illness - Reason for Consult Consult date: 02/23/22 DKA Requesting physician: CARLTON SKELTON - History of Present Illness 41 y/o male, known diabetic with gastroparesis, readmitted after being discharged 2 days ago with elevated blood sugars with recurrent DKA. Patient is awake and alert and writhing in pain from a left foot heel fracture sustained in January. No follow up has been done. Patient had a bicarb of 4 and anion gap of 35 on admission. No further labs have been drawn. Insulin drip now hanging and IVF's being administered. Past History Past Medical History: diabetes, GERD, hypertension, seizures, other (left heal fracture, untreated now with exposed bone) Past Surgical History: Other (Hernia repair) Social history: smoking Family history: diabetes, hypertension Medications and Allergies Allergies Allergy/AdvReac Type Severity Reaction Status Date / Time Sulfa (Sulfonamide Allergy Itching Verified 02/22/22 10:17 Antibiotics) Home Medications Medication Instructions Recorded Confirmed Last Taken Type HYDROcodone/APAP 7.5-325 [[place] 1 each PO Q6HR PRN 02/22/22 02/22/22 1 Week Ago History 7.5-325 mg TAB] ~02/15/22 Insulin NPH/Regular [NovoLIN 70/30] 15 unit SUB-Q TID 30 Days #1350 02/22/22 02/22/22 02/12/22 Rx units Syringe,Needle,Insuln,Sf 0.5ML 1 each MC TID 30 Days #100 each 02/22/22 Unknown Rx [Easy Touch Insulin Safety] Active Meds: Active Medications Acetaminophen (Acetaminophen 325 Mg Tab) 650 mg PO Q4H PRN PRN Reason: Pain MILD(1-3)/Fever >100.5/HUSSEIN Albuterol (Albuterol 2.5 Mg/3 Ml Nebu) 2.5 mg IH Q4HRT PRN PRN Reason: Shortness Of Breath Albuterol/Ipratropium (Ipratropium/Albuterol Sulfate 3 Ml Ampul.Neb) 1 ampul IH Q6HRT MARCUS Dextrose (Dextrose 50% In Water (25gm) 50 Ml Syringe) 0 ml IV Q30MIN PRN; Protocol PRN Reason: Hypoglycemia Famotidine (Famotidine 20 Mg Tab) 20 mg PO QAM MARCUS Insulin Human Regular 100 (units/ Sodium Chloride) 100 mls @ 1 mls/hr IV TITR MARCUS; Protocol Last Titration: 02/23/22 10:25 Dose: 8 units/hr, 8 mls/hr Sodium Chloride (Nacl 0.45% 1000 Ml) 1,000 mls @ 150 mls/hr IV DIRECT MARCUS Potassium Chloride/Dextrose/Sod Cl (D5w/0.45% Nacl/Kcl 20 Meq) 20 meq in 1,000 mls @ 125 mls/hr IV DIRECT MARCUS Ampicillin Sodium/Sulbactam Sodium (Unasyn/Ns 3 Gm/100 Ml) 3 gm in 100 mls @ 200 mls/hr IV Q12H MARCUS; Protocol Morphine Sulfate (Morphine 2 Mg/1 Ml Inj) 2 mg IV Q4H PRN PRN Reason: Pain, Moderate (4-6) Morphine Sulfate (Morphine 4 Mg/1 Ml Inj) 4 mg IV Q4H PRN PRN Reason: Pain , Severe (7-10) Ondansetron HCl (Ondansetron 4 Mg/2 Ml Inj) 4 mg IV Q8H PRN PRN Reason: Nausea And Vomiting Oxycodone/Acetaminophen (Oxycodone /Acetaminophen 5-325mg Tab) 1 tab PO Q6H PRN PRN Reason: Pain, Moderate (4-6) Sodium Chloride (Sodium Chloride 0.9% 10 Ml Flush Syringe) 10 ml IV BID MARCUS Sodium Chloride (Sodium Chloride 0.9% 10 Ml Flush Syringe) 10 ml IV PRN PRN PRN Reason: LINE FLUSH Review of Systems All systems: negative Exam - Constitutional Vitals: Temp Pulse Resp BP Pulse Ox 98.2 F 97 H 13 122/70 99 02/23/22 08:03 02/23/22 08:03 02/23/22 08:03 02/23/22 08:03 02/23/22 08:03 General appearance: Present: mild distress - EENT Eyes: Present: PERRL, EOM intact ENT: hearing intact - Neck Neck: Present: supple, normal ROM - Respiratory Respiratory effort: normal Respiratory: bilateral: CTA Results - Labs CBC & Chem 7: 02/23/22 04:18 02/23/22 06:06 Labs: Abnormal lab results 02/23/22 02/23/22 02/23/22 Range/Units 04:18 04:18 04:18 WBC 17.5 H (4.5-11.0) K/mm3 Hgb 11.3 L (11.8-15.2) gm/dl MCV 102 H (84-94) fl MCHC 30 L (32-34) % Lymph % (Auto) 5.3 L (13.4-35.0) % Lymph # (Auto) 0.9 L (1.2-5.4) K/mm3 Seg Neutrophils % 90.0 H (40.0-70.0) % Seg Neutrophils # 15.8 H (1.8-7.7) K/mm3 ABG pH (7.350-7.450) pH Units ABG pO2 (80.0-90.0) mm Hg ABG HCO3 (20.0-26.0) mmol/L ABG Base Excess (-2.0-3.0) mmol/L ABG Hemoglobin (14.0-18.0) gm/dl Sodium 125 L D (137-145) mmol/L Potassium 7.3 H* D (3.6-5.0) mmol/L Chloride 82.7 L (98-107) mmol/L Carbon Dioxide 4 L* D (22-30) mmol/L BUN 37 H (9-20) mg/dL Creatinine 2.8 H D (0.8-1.3) mg/dL Glucose 747 H* (75-100) mg/dL Lactic Acid 6.10 H* (0.7-2.0) mmol/L Calcium (8.4-10.2) mg/dL Phosphorus (2.5-4.5) mg/dL Magnesium (1.7-2.3) mg/dL AST 47 H (5-40) units/L Alkaline Phosphatase 171 H (35-129) units/L 02/23/22 02/23/22 02/23/22 Range/Units 04:18 05:10 05:23 WBC (4.5-11.0) K/mm3 Hgb (11.8-15.2) gm/dl MCV (84-94) fl MCHC (32-34) % Lymph % (Auto) (13.4-35.0) % Lymph # (Auto) (1.2-5.4) K/mm3 Seg Neutrophils % (40.0-70.0) % Seg Neutrophils # (1.8-7.7) K/mm3 ABG pH 7.181 L* (7.350-7.450) pH Units ABG pO2 119.5 H (80.0-90.0) mm Hg ABG HCO3 5.4 L (20.0-26.0) mmol/L ABG Base Excess -20.9 L (-2.0-3.0) mmol/L ABG Hemoglobin 8.7 L (14.0-18.0) gm/dl Sodium (137-145) mmol/L Potassium (3.6-5.0) mmol/L Chloride (98-107) mmol/L Carbon Dioxide (22-30) mmol/L BUN (9-20) mg/dL Creatinine (0.8-1.3) mg/dL Glucose (75-100) mg/dL Lactic Acid 4.50 H* (0.7-2.0) mmol/L Calcium (8.4-10.2) mg/dL Phosphorus (2.5-4.5) mg/dL Magnesium 2.40 H (1.7-2.3) mg/dL AST (5-40) units/L Alkaline Phosphatase (35-129) units/L 02/23/22 02/23/22 Range/Units 06:06 06:06 WBC (4.5-11.0) K/mm3 Hgb (11.8-15.2) gm/dl MCV (84-94) fl MCHC (32-34) % Lymph % (Auto) (13.4-35.0) % Lymph # (Auto) (1.2-5.4) K/mm3 Seg Neutrophils % (40.0-70.0) % Seg Neutrophils # (1.8-7.7) K/mm3 ABG pH (7.350-7.450) pH Units ABG pO2 (80.0-90.0) mm Hg ABG HCO3 (20.0-26.0) mmol/L ABG Base Excess (-2.0-3.0) mmol/L ABG Hemoglobin (14.0-18.0) gm/dl Sodium 132 L D (137-145) mmol/L Potassium (3.6-5.0) mmol/L Chloride 92.2 L (98-107) mmol/L Carbon Dioxide 10 L (22-30) mmol/L BUN 36 H (9-20) mg/dL Creatinine 2.7 H (0.8-1.3) mg/dL Glucose 403 H (75-100) mg/dL Lactic Acid (0.7-2.0) mmol/L Calcium 8.3 L (8.4-10.2) mg/dL Phosphorus 4.60 H (2.5-4.5) mg/dL Magnesium (1.7-2.3) mg/dL AST (5-40) units/L Alkaline Phosphatase (35-129) units/L Assessment and Plan 41 y/o male with dKA in the prescence of exposed bone on left heal fracture. 1. DKA likely resulting from sepsis secondary to fracture. Will empirically place on Unasyn. IMS has spoken to our local Ortho physician 2. IVF's and insulin therapy 3. Pain control 4. NPO, q1 hour fingersticks, once sugar is below 250, change fluids to D5 +/- K supplementation. Guarded prognosis. CCt 31 minutes.
[2022-02-23] MEDS: FAMOTIDINE 20 MG TAB PO SCH (11:30)
[2022-02-23 12:08] LABS: Calcium 8.7 mg/dL (8.4-10.2)
[2022-02-23] MEDS: AMPICILLIN/SULBACTA 3GM/100ML 3 GM/100 ML BAG IV SCH ×2 (12:42→23:19)
[2022-02-23] MEDS: D5W/0.45% NACL/KCL 20 MEQ 20 MEQ/1,000 ML BAG IV SCH ×2 (14:31→20:31)
[2022-02-23] MEDS: DEXTROSE 50% IN WATER (25GM) 50 ML SYRINGE IV PRN ×2 (17:00→17:45)
[2022-02-23 19:56] LABS: Calcium 8.5 mg/dL (8.4-10.2)
[2022-02-23] MEDS: HYDROmorphone 1 MG/1 ML INJ IV PRN (21:30)
[2022-02-23] MEDS: MORPHINE 2 MG/1 ML INJ IV PRN (23:12)
[2022-02-24] MEDS: HYDROmorphone 1 MG/1 ML INJ IV PRN ×3 (01:37→09:30)
[2022-02-24 03:49] LABS: Hematocrit 32.9 % (35.5-45.6); Mean Corpuscular HGB Conc 33 % (32-34); Mean Corpuscular Volume 93 fl (84-94); Platelet Count 207 K/mm3 (140-440); Red Blood Count 3.56 M/mm3 (3.65-5.03); Red Cell Distribution Width 13.9 % (13.2-15.2)
[2022-02-24 04:14] LABS: BUN/Creatinine Ratio 14; Blood Urea Nitrogen 21 mg/dL (9-20); Calcium 8.7 mg/dL (8.4-10.2); Hemolysis Index 42
[2022-02-24 04:36] LABS: Basophils % (Manual) 0 % (0.0-1.8); Platelet Estimate Cons; Total Cells Counted 100
[2022-02-24] MEDS: D5W/0.45% NACL/KCL 20 MEQ 20 MEQ/1,000 ML BAG IV SCH ×2 (06:34→16:38)
[2022-02-24] MEDS ORDERED: LACTATED RINGERS 1,000 ML IV ONE (09:00)
[2022-02-24] MEDS ORDERED: hydrALAZINE 20 MG/1 ML INJ IV PRN (09:00)
[2022-02-24] MEDS: FAMOTIDINE 20 MG TAB PO SCH (09:32)
--- NOTE | 2022-02-24 10:17 | Progress Note ---
Assessment and Plan - Patient Problems (1) KARLO (acute kidney injury) Current Visit: No Status: Acute Plan to address problem: Acute kidney injury secondary to volume depletion secondary to GI losses and also renal losses from osmotic diuresis due to hyperglycemia. Kidney function is improving. Continue volume repletion and follow-up electrolytes and renal function. (2) DKA (diabetic ketoacidosis) Current Visit: Yes Status: Acute Plan to address problem: Improving but anion gap is still high and actually worse this morning compared to last night. Continue insulin drip and volume repletion with hypotonic saline (3) Hyperkalemia Current Visit: Yes Status: Acute Plan to address problem: Resolved with aggressive medical management. Follow-up potassium level (4) Lactic acidosis Current Visit: Yes Status: Acute Plan to address problem: Secondary to hypoperfusion. Improved. Follow-up lactic acid (5) Seizure Current Visit: Yes Status: Acute Plan to address problem: Management by primary attending. (6) Abdominal pain Current Visit: No Status: Acute Qualifiers: Abdominal location: epigastric Qualified Code(s): R10.13 - Epigastric pain Plan to address problem: Suspect related to diabetic ketoacidosis. Monitor symptoms (7) Hypertension Current Visit: No Status: Acute Qualifiers: Hypertension type: primary hypertension Qualified Code(s): I10 - Essential (primary) hypertension Plan to address problem: Follow-up blood pressure Subjective Date of service: 02/24/22 Principal diagnosis: Acute kidney injury, diabetic ketoacidosis Interval history: Patient seen lying in bed. He still complains of pain all over. He admits to nausea but no vomiting. No fever or chills Objective - Exam Narrative Exam: Young -Citizen [place] male lying in bed in no acute distress HEENT: NCAT, pink conjunctiva, anicteric sclera Neck: Supple, no venous distention CVS: S1S2 RRR with no murmur, rub or gallop Chest: Clear to auscultation Abdomen: Protuberant, soft, nontender, no organomegaly, bowel sounds are present Extremities: No edema Genitourinary deferred Skin hyperpigmented spots/scars in both legs. Splint right ankle Neuro: Awake, alert no focal deficits - Vital Signs Vital signs: Vital Signs - 12hr 02/23/22 02/23/22 02/24/22 22:14 23:00 00:00 Temperature 98.5 F Pulse Rate 98 H 93 H 80 Pulse Rate [ 85 From Monitor] Pulse Rate [ None] Respiratory 11 L 10 L 10 L Rate Blood Pressure 169/133 168/106 154/95 O2 Sat by Pulse 100 99 Oximetry 02/24/22 02/24/22 02/24/22 01:00 02:00 03:00 Temperature Pulse Rate 106 H 79 81 Pulse Rate [ From Monitor] Pulse Rate [ None] Respiratory 13 7 L 6 L Rate Blood Pressure 154/95 143/76 158/102 O2 Sat by Pulse 98 99 100 Oximetry 02/24/22 02/24/22 02/24/22 04:00 05:00 06:00 Temperature 97.8 F Pulse Rate 92 H 90 78 Pulse Rate [ 85 From Monitor] Pulse Rate [ None] Respiratory 10 L 11 L 7 L Rate Blood Pressure 149/101 160/91 152/95 O2 Sat by Pulse 99 100 100 Oximetry 02/24/22 02/24/22 02/24/22 07:00 08:00 09:00 Temperature 97.7 F Pulse Rate 84 85 77 Pulse Rate [ 85 From Monitor] Pulse Rate [ 85 None] Respiratory 12 Rate Blood Pressure 160/102 159/99 157/99 O2 Sat by Pulse 100 100 100 Oximetry 02/24/22 10:00 Temperature Pulse Rate 78 Pulse Rate [ From Monitor] Pulse Rate [ None] Respiratory Rate Blood Pressure 156/93 O2 Sat by Pulse 100 Oximetry - Lab 02/24/22 03:27 02/24/22 03:27 Most recent lab results ABG pH 7.181 pH Units (7.350-7.450) L* 02/23/22 05:10 ABG pCO2 14.9 mm Hg 02/23/22 05:10 ABG pO2 119.5 mm Hg (80.0-90.0) H 02/23/22 05:10 ABG HCO3 5.4 mmol/L (20.0-26.0) L 02/23/22 05:10 ABG O2 Saturation 97.9 % (95.0-99.0) 02/23/22 05:10 Calcium 8.7 mg/dL (8.4-10.2) 02/24/22 03:27 Phosphorus 4.60 mg/dL (2.5-4.5) H 02/23/22 06:06 Magnesium 2.20 mg/dL (1.7-2.3) 02/23/22 06:06 Medications & Allergies - Medications Allergies/Adverse Reactions: Allergies Sulfa (Sulfonamide Antibiotics) Allergy (Verified 02/22/22 10:17) Itching patient gets rash or experiences wheezing/cough if he inhales it. Home Medications: Home Medications Medication Instructions Recorded Confirmed Last Taken Type HYDROcodone/APAP 7.5-325 [[place] 1 each PO Q6HR PRN 02/22/22 02/22/22 1 Week Ago History 7.5-325 mg TAB] ~02/15/22 Insulin NPH/Regular [NovoLIN 70/30] 15 unit SUB-Q TID 30 Days #1350 02/22/22 02/22/22 02/12/22 Rx units Syringe,Needle,Insuln,Sf 0.5ML 1 each MC TID 30 Days #100 each 02/22/22 Unknown Rx [Easy Touch Insulin Safety] Active Medications: Generic Name Dose Route Start Last Admin Trade Name Freq PRN Reason Stop Dose Admin Acetaminophen 650 mg 02/23/22 05:55 Acetaminophen 325 Mg Tab PO Q4H PRN Pain MILD(1-3)/Fever >100.5/HUSSEIN Albuterol 2.5 mg 02/23/22 05:55 Albuterol 2.5 Mg/3 Ml Nebu IH Q4HRT PRN Shortness Of Breath Dextrose 0 ml 02/23/22 05:55 02/23/22 17:45 Dextrose 50% In Water (25gm) 50 Ml Syringe IV 50 ml Q30MIN PRN Administration Hypoglycemia Protocol Famotidine 20 mg 02/23/22 10:00 02/24/22 09:32 Famotidine 20 Mg Tab PO 20 mg QAM MARCUS Administration Hydralazine HCl 10 mg 02/24/22 09:00 Hydralazine 20 Mg/1 Ml Inj IV Q4H PRN Hypertension Hydromorphone HCl 1 mg 02/23/22 16:50 02/24/22 09:30 Hydromorphone 1 Mg/1 Ml Inj IV 1 mg Q4H PRN Administration Pain , Severe (7-10) Insulin Human Regular 100 100 mls @ 1 mls/hr 02/23/22 06:00 02/24/22 09:28 units/ Sodium Chloride IV 0.5 units/hr TITR MARCUS 0.5 mls/hr Titration Protocol 1 UNITS/HR Sodium Chloride 1,000 mls @ 150 mls/hr 02/23/22 06:00 02/23/22 12:38 Nacl 0.45% 1000 Ml IV 150 mls/hr DIRECT MARCUS Administration Potassium Chloride/Dextrose/Sod Cl 20 meq in 1,000 mls @ 125 mls/hr 02/23/22 06:00 02/24/22 06:34 D5w/0.45% Nacl/Kcl 20 Meq IV 125 mls/hr DIRECT MARCUS Administration Ampicillin Sodium/Sulbactam Sodium 3 gm in 100 mls @ 200 mls/hr 02/24/22 12:00 Unasyn/Ns 3 Gm/100 Ml IV Q6HR MARCUS Protocol Morphine Sulfate 2 mg 02/23/22 05:55 02/23/22 23:12 Morphine 2 Mg/1 Ml Inj IV 2 mg Q4H PRN Administration Pain, Moderate (4-6) Ondansetron HCl 4 mg 02/23/22 05:55 02/23/22 12:33 Ondansetron 4 Mg/2 Ml Inj IV 4 mg Q8H PRN Administration Nausea And Vomiting Oxycodone/Acetaminophen 1 tab 02/23/22 05:26 Oxycodone /Acetaminophen 5-325mg Tab PO Q6H PRN Pain, Moderate (4-6) Sodium Chloride 10 ml 02/23/22 10:00 02/24/22 09:31 Sodium Chloride 0.9% 10 Ml Flush Syringe IV 10 ml BID MARCUS Administration Sodium Chloride 10 ml 02/23/22 05:26 Sodium Chloride 0.9% 10 Ml Flush Syringe IV PRN PRN LINE FLUSH
[2022-02-24] MEDS: MORPHINE 2 MG/1 ML INJ IV PRN (11:37)
[2022-02-24] MEDS: AMPICILLIN/SULBACTA 3GM/100ML 3 GM/100 ML BAG IV SCH ×2 (11:38→18:38)
--- NOTE | 2022-02-24 13:04 | Progress Note ---
Assessment and Plan 41 y/o male with dKA in the prescence of exposed bone on left heal fracture. 02/24/22: Continue IV abx therapy. White count is improving. Follow up ortho recs. Continue insulin drip until gap closes again and then reassess total insu sarah requirements and attempt long acting based on that. Pain control 1. DKA likely resulting from sepsis secondary to fracture. Will empirically place on Unasyn. IMS has spoken to our local Ortho physician 2. IVF's and insulin therapy 3. Pain control 4. NPO, q1 hour fingersticks, once sugar is below 250, change fluids to D5 +/- K supplementation. Guarded prognosis. CCt 31 minutes. Subjective Date of service: 02/24/22 Principal diagnosis: Acute kidney injury, diabetic ketoacidosis Interval history: Awake and alert. Complains of pain. Patient does not want to talk about how this injury happened other than it happened at work. Still with elevated anion gap but did close yesterday afternoon. Tolerating abx therapy. White count better. Objective - Constitutional Vitals: Vital Signs - 12hr 02/24/22 02/24/22 02/24/22 01:00 02:00 03:00 Temperature Pulse Rate 106 H 79 81 Pulse Rate [ From Monitor] Pulse Rate [ None] Respiratory 13 7 L 6 L Rate Blood Pressure 154/95 143/76 158/102 O2 Sat by Pulse 98 99 100 Oximetry 02/24/22 02/24/22 02/24/22 04:00 05:00 06:00 Temperature 97.8 F Pulse Rate 92 H 90 78 Pulse Rate [ 85 From Monitor] Pulse Rate [ None] Respiratory 10 L 11 L 7 L Rate Blood Pressure 149/101 160/91 152/95 O2 Sat by Pulse 99 100 100 Oximetry 02/24/22 02/24/22 02/24/22 07:00 08:00 09:00 Temperature 97.7 F Pulse Rate 84 85 77 Pulse Rate [ 85 From Monitor] Pulse Rate [ 85 None] Respiratory 12 Rate Blood Pressure 160/102 159/99 157/99 O2 Sat by Pulse 100 100 100 Oximetry 02/24/22 02/24/22 02/24/22 10:00 11:00 12:00 Temperature 98.1 F Pulse Rate 78 82 75 Pulse Rate [ 76 From Monitor] Pulse Rate [ 76 None] Respiratory 5 L 8 L Rate Blood Pressure 156/93 156/102 169/108 O2 Sat by Pulse 100 100 100 Oximetry General appearance: Present: no acute distress, well-nourished - EENT Eyes: PERRL, EOM intact ENT: hearing intact, clear oral mucosa - Neck Neck: supple - Respiratory Respiratory effort: normal Respiratory: bilateral: CTA - Cardiovascular Rhythm: regular Heart Sounds: Present: S1 & S2 Extremities: abnormal (left heel) - Labs CBC & Chem 7: 02/24/22 03:27 02/24/22 03:27 Labs: Abnormal lab results 02/23/22 02/23/22 02/23/22 Range/Units 12:02 13:01 14:02 WBC (4.5-11.0) K/mm3 RBC (3.65-5.03) M/mm3 Hgb (11.8-15.2) gm/dl Hct (35.5-45.6) % Seg Neuts % (Manual) (40.0-70.0) % Lymphocytes % (Manual) (13.4-35.0) % Seg Neutrophils # Man (1.8-7.7) K/mm3 Sodium (137-145) mmol/L Chloride (98-107) mmol/L Carbon Dioxide (22-30) mmol/L BUN (9-20) mg/dL Creatinine (0.8-1.3) mg/dL Glucose (75-100) mg/dL POC Glucose 382 H 307 H 210 H (70-105) mg/dL 02/23/22 02/23/22 02/23/22 Range/Units 15:05 17:35 18:48 WBC (4.5-11.0) K/mm3 RBC (3.65-5.03) M/mm3 Hgb (11.8-15.2) gm/dl Hct (35.5-45.6) % Seg Neuts % (Manual) (40.0-70.0) % Lymphocytes % (Manual) (13.4-35.0) % Seg Neutrophils # Man (1.8-7.7) K/mm3 Sodium (137-145) mmol/L Chloride (98-107) mmol/L Carbon Dioxide (22-30) mmol/L BUN 28 H (9-20) mg/dL Creatinine 2.0 H (0.8-1.3) mg/dL Glucose (75-100) mg/dL POC Glucose 150 H 56 L (70-105) mg/dL 02/24/22 02/24/22 02/24/22 Range/Units 00:37 01:39 03:16 WBC (4.5-11.0) K/mm3 RBC (3.65-5.03) M/mm3 Hgb (11.8-15.2) gm/dl Hct (35.5-45.6) % Seg Neuts % (Manual) (40.0-70.0) % Lymphocytes % (Manual) (13.4-35.0) % Seg Neutrophils # Man (1.8-7.7) K/mm3 Sodium (137-145) mmol/L Chloride (98-107) mmol/L Carbon Dioxide (22-30) mmol/L BUN (9-20) mg/dL Creatinine (0.8-1.3) mg/dL Glucose (75-100) mg/dL POC Glucose 136 H 123 H 276 H (70-105) mg/dL 02/24/22 02/24/22 02/24/22 Range/Units 03:27 03:27 04:35 WBC 11.5 H (4.5-11.0) K/mm3 RBC 3.56 L (3.65-5.03) M/mm3 Hgb 11.0 L (11.8-15.2) gm/dl Hct 32.9 L (35.5-45.6) % Seg Neuts % (Manual) 85.0 H (40.0-70.0) % Lymphocytes % (Manual) 10.0 L (13.4-35.0) % Seg Neutrophils # Man 9.8 H (1.8-7.7) K/mm3 Sodium 134 L (137-145) mmol/L Chloride 95.9 L (98-107) mmol/L Carbon Dioxide 17 L (22-30) mmol/L BUN 21 H (9-20) mg/dL Creatinine 1.5 H (0.8-1.3) mg/dL Glucose 210 H (75-100) mg/dL POC Glucose 274 H (70-105) mg/dL 02/24/22 02/24/22 Range/Units 05:32 06:29 WBC (4.5-11.0) K/mm3 RBC (3.65-5.03) M/mm3 Hgb (11.8-15.2) gm/dl Hct (35.5-45.6) % Seg Neuts % (Manual) (40.0-70.0) % Lymphocytes % (Manual) (13.4-35.0) % Seg Neutrophils # Man (1.8-7.7) K/mm3 Sodium (137-145) mmol/L Chloride (98-107) mmol/L Carbon Dioxide (22-30) mmol/L BUN (9-20) mg/dL Creatinine (0.8-1.3) mg/dL Glucose (75-100) mg/dL POC Glucose 253 H 243 H (70-105) mg/dL Medications & Allergies - Medications Allergies/Adverse Reactions: Allergies Sulfa (Sulfonamide Antibiotics) Allergy (Verified 02/22/22 10:17) Itching patient gets rash or experiences wheezing/cough if he inhales it. Home Medications: Home Medications Medication Instructions Recorded Confirmed Last Taken Type HYDROcodone/APAP 7.5-325 [[place] 1 each PO Q6HR PRN 02/22/22 02/22/22 1 Week Ago History 7.5-325 mg TAB] ~02/15/22 Insulin NPH/Regular [NovoLIN 70/30] 15 unit SUB-Q TID 30 Days #1350 02/22/22 02/22/22 02/12/22 Rx units Syringe,Needle,Insuln,Sf 0.5ML 1 each MC TID 30 Days #100 each 02/22/22 Unknown Rx [Easy Touch Insulin Safety] Active Medications: Generic Name Dose Route Start Last Admin Trade Name Jae PRN Reason Stop Dose Admin Acetaminophen 650 mg 02/23/22 05:55 Acetaminophen 325 Mg Tab PO Q4H PRN Pain MILD(1-3)/Fever >100.5/HUSSEIN Albuterol 2.5 mg 02/23/22 05:55 Albuterol 2.5 Mg/3 Ml Nebu IH Q4HRT PRN Shortness Of Breath Dextrose 0 ml 02/23/22 05:55 02/23/22 17:45 Dextrose 50% In Water (25gm) 50 Ml Syringe IV 50 ml Q30MIN PRN Administration Hypoglycemia Protocol Famotidine 20 mg 02/23/22 10:00 02/24/22 09:32 Famotidine 20 Mg Tab PO 20 mg QAM MARCUS Administration Hydralazine HCl 10 mg 02/24/22 09:00 Hydralazine 20 Mg/1 Ml Inj IV Q4H PRN Hypertension Hydromorphone HCl 1 mg 02/23/22 16:50 02/24/22 09:30 Hydromorphone 1 Mg/1 Ml Inj IV 1 mg Q4H PRN Administration Pain , Severe (7-10) Insulin Human Regular 100 100 mls @ 1 mls/hr 02/23/22 06:00 02/24/22 12:27 units/ Sodium Chloride IV 3 units/hr TITR MARCUS 3 mls/hr Titration Protocol 1 UNITS/HR Sodium Chloride 1,000 mls @ 150 mls/hr 02/23/22 06:00 02/23/22 12:38 Nacl 0.45% 1000 Ml IV 150 mls/hr DIRECT MARCUS Administration Potassium Chloride/Dextrose/Sod Cl 20 meq in 1,000 mls @ 125 mls/hr 02/23/22 06:00 02/24/22 06:34 D5w/0.45% Nacl/Kcl 20 Meq IV 125 mls/hr DIRECT MARCUS Administration Ampicillin Sodium/Sulbactam Sodium 3 gm in 100 mls @ 200 mls/hr 02/24/22 12:00 02/24/22 11:38 Unasyn/Ns 3 Gm/100 Ml IV 200 mls/hr Q6HR MARCUS Administration Protocol Morphine Sulfate 2 mg 02/23/22 05:55 02/24/22 11:37 Morphine 2 Mg/1 Ml Inj IV 2 mg Q4H PRN Administration Pain, Moderate (4-6) Ondansetron HCl 4 mg 02/23/22 05:55 02/23/22 12:33 Ondansetron 4 Mg/2 Ml Inj IV 4 mg Q8H PRN Administration Nausea And Vomiting Oxycodone/Acetaminophen 1 tab 02/23/22 05:26 Oxycodone /Acetaminophen 5-325mg Tab PO Q6H PRN Pain, Moderate (4-6) Sodium Chloride 10 ml 02/23/22 10:00 02/24/22 09:31 Sodium Chloride 0.9% 10 Ml Flush Syringe IV 10 ml BID MARCUS Administration Sodium Chloride 10 ml 02/23/22 05:26 Sodium Chloride 0.9% 10 Ml Flush Syringe IV PRN PRN LINE FLUSH
[2022-02-24 15:38] LABS: BUN/Creatinine Ratio 9; Blood Urea Nitrogen 13 mg/dL (9-20); Calcium 8.9 mg/dL (8.4-10.2); Hemolysis Index 116
[2022-02-24] MEDS ORDERED: ETOMIDATE 20 MG/10 ML INJ IV NR (16:11)
[2022-02-24] MEDS ORDERED: ROCURONIUM 50 MG/5 ML INJ IV NR (16:11)
[2022-02-24] MEDS ORDERED: DEXTROSE 50% IN WATER (25GM) 50 ML SYRINGE IV PRN (17:46)
[2022-02-24] MEDS: INSULIN GLARGINE 100 UNITS/ML SUB-Q SCH ×2 (18:33→22:21)
[2022-02-24] MEDS ORDERED: SODIUM CHLORIDE 0.9% 1000 ML 1,000 ML IV SCH (18:45)
--- NOTE | 2022-02-24 18:50 | Progress Note ---
Assessment and Plan Assessment and plan: This is a 41-year-old male with IDDM admitted with DKA, posterior calcaneal fracture, likely hypoglycemic seizure, lactic acidosis, acute kidney injury, hyperkalemia Neuro: Seizure, acute pain -Reported seizure prior to admission -Suspect hypoglycemic seizure -Further seizure activity noted -Analgesia as needed -Reorientation as needed -Maintain sleep-wake cycle -aspiration/seizure precautions -CT head shows no acute intracranial abnormality, left occipital scalp contusion -UDS positive for marijuana Cardiac: Hypertension -Thought to be likely secondary to pain however it is persistent -Started on Norvasc -As needed hydralazine -Blood pressure monitoring per protocol Respiratory: NAD -Supplemental oxygen as needed -SPO2 monitor per protocol -Pulmonary hygiene GI: NAD -24 hours -504 mL -PPI -N.p.o. transition to a 60 diet -BR: Colace : Acute kidney injury secondary to vasomotor nephropathy, high nongap metabolic acidosis, hyponatremia, hypochloremia -Nephrology consulted, appreciate recommendations -Monitor intake and output -Renally dose medications -Avoid nephrotoxic medications -MIVF for 1 L -Trend BMP ID: SIRS with organ dysfunction, lactic acidosis -Presented with leukocytosis, lactic acidosis, exposed bone fracture -Antibiotic therapy with Unasyn -Monitor WBC and temperature curve Endo: S/p DKA, H/o IDDM -Presented with weakness, nausea vomiting, severe leg pain -Presented with anion gap of 30, blood glucose 403, ketonuria, ABG pH 7.181, bicarb 4 and admission -S/p DKA protocol and insulin drip -Avoid hypoglycemia -SSI -Accu-Cheks q. ACH S -Long-acting insulin, titrate as needed -Hemoglobin A1c pending Heme: Leukocytosis -Trend CBC -Transfuse hemoglobin less than 7 -SCDs to BLE while in bed MS: Posterior calcaneal fracture -Orthopedics consulted, appreciate recommendations -Open wound on posterior aspect of right heel, 3 cm wound with exposed bone visualized -Per patient/chart review injury acquired when patient was moving a washer on January 23 -Patient was examined in the emergency department on 01/23, XR of the foot demonstrated posterior calcaneal fracture however the patient was discharged and advised to follow-up with orthopedics outpatient by patient did not follow-up -As needed analgesia -Antibiotic therapy with Unasyn IV -Wound care consult The high probability of a clinically significant, sudden or life threatening deterioration of the [multi] system(s) required my full and direct attention, intervention and personal management. The aggregate critical care time was [60] minutes. This time is in addition to time spent performing reported procedures but includes the following: [x] Data Review and interpretation [x] Patient assessment and monitoring of vital signs [x] Documentation [x] Medication orders and management Disposition Plan: icu Total Time Spent with Patient (Minutes): 60 History Interval history: This is a 41-year-old male with DM who presented to the emergency department on 02/23 with complaints of weakness, fatigue, nausea, vomiting, and generalized pain. In the emergency department patient was found to have leukocytosis of 17.5, pH of 7.181, PCO2 of 41.9, hyperglycemia at 747, lactic acid of 6.1, elevated BUN/creatinine at 37/2.8, hyperkalemia at 7.3, and bicarbonate of 4 consistent with DKA with significant elevation to anion gap, metabolic acidosis and hyperkalemia. Patient was resuscitated with normal saline, given insulin IV push and started on insulin drip, given multiple rounds of bicarbonate, calcium gluconate and started on a bicarbonate drip. Patient was admitted to the hospitalist service with DKA with consults to nephrology and CCM. Hospital course to date: 02/23: Continue insulin gtt and IVF. Patient complaining of severe right heel pain. upon unwrapping dressing, open wound approximately 3 cm in diameter with exposed bone visualized. Initiated on unasyn IV for empiric coverage. Orthopedic surgery, Dr. Turcios consulted. 02/24: Patient still complains of pain, wanting something to eat. Patient anion gap is not closed this morning and was given an LR bolus dose of anion gap closing at 1400 BMP. This BMP resulted at 1500 and anion gap was noted to be 14, transition to SSI, started on a CC diet, and long-acting insulin. Hospitalist Physical - Constitutional Vitals: Temp Pulse Resp BP Pulse Ox 98.1 F 143 H 11 L 164/88 100 02/24/22 12:00 02/24/22 18:00 02/24/22 18:00 02/24/22 18:00 02/24/22 18:00 General appearance: Present: no acute distress, well-nourished - EENT Eyes: Present: PERRL, EOM intact ENT: hearing intact, clear oral mucosa, dentition normal - Neck Neck: Present: normal ROM - Respiratory Respiratory effort: normal Respiratory: bilateral: CTA - Cardiovascular Rhythm: regular Heart Sounds: Present: S1 & S2. Absent: systolic murmur, diastolic murmur - Extremities Extremities: no ischemia, pulses intact, pulses symmetrical, No edema, normal temperature, normal color Peripheral Pulses: within normal limits - Abdominal General gastrointestinal: soft, non-tender, non-distended, normal bowel sounds - Integumentary Integumentary: Present: warm, dry - Psychiatric Psychiatric: agitated - Neurologic Neurologic: CNII-XII intact - Allied Health Allied health notes reviewed: nursing, RT, social work Results - Labs CBC & Chem 7: 02/24/22 03:27 02/24/22 15:14 Labs: Laboratory Last Values WBC 11.5 K/mm3 (4.5-11.0) H 02/24/22 03:27 RBC 3.56 M/mm3 (3.65-5.03) L 02/24/22 03:27 Hgb 11.0 gm/dl (11.8-15.2) L 02/24/22 03:27 Hct 32.9 % (35.5-45.6) L 02/24/22 03:27 MCV 93 fl (84-94) 02/24/22 03:27 MCH 31 pg (28-32) 02/24/22 03:27 MCHC 33 % (32-34) 02/24/22 03:27 RDW 13.9 % (13.2-15.2) 02/24/22 03:27 Plt Count 207 K/mm3 (140-440) 02/24/22 03:27 Lymph % (Auto) 5.3 % (13.4-35.0) L 02/23/22 04:18 [place] % (Auto) 4.0 % (0.0-7.3) 02/23/22 04:18 Eos % (Auto) 0.0 % (0.0-4.3) 02/23/22 04:18 Baso % (Auto) 0.7 % (0.0-1.8) 02/23/22 04:18 Lymph # (Auto) 0.9 K/mm3 (1.2-5.4) L 02/23/22 04:18 [place] # (Auto) 0.7 K/mm3 (0.0-0.8) 02/23/22 04:18 Eos # (Auto) 0.0 K/mm3 (0.0-0.4) 02/23/22 04:18 Baso # (Auto) 0.1 K/mm3 (0.0-0.1) 02/23/22 04:18 Add Manual Diff Complete 02/24/22 03:27 Total Counted 100 02/24/22 03:27 Seg Neutrophils % 90.0 % (40.0-70.0) H 02/23/22 04:18 Seg Neuts % (Manual) 85.0 % (40.0-70.0) H 02/24/22 03:27 Band Neutrophils % 0 % 02/24/22 03:27 Lymphocytes % (Manual) 10.0 % (13.4-35.0) L 02/24/22 03:27 Reactive Lymphs % (Man) 0 % 02/24/22 03:27 Monocytes % (Manual) 2.0 % (0.0-7.3) 02/24/22 03:27 Eosinophils % (Manual) 3.0 % (0.0-4.3) 02/24/22 03:27 Basophils % (Manual) 0 % (0.0-1.8) 02/24/22 03:27 Metamyelocytes % 0 % 02/24/22 03:27 Myelocytes % 0 % 02/24/22 03:27 Promyelocytes % 0 % 02/24/22 03:27 Blast Cells % 0 % 02/24/22 03:27 Nucleated RBC % Not Reportable 02/24/22 03:27 Seg Neutrophils # 15.8 K/mm3 (1.8-7.7) H 02/23/22 04:18 Seg Neutrophils # Man 9.8 K/mm3 (1.8-7.7) H 02/24/22 03:27 Band Neutrophils # 0.0 K/mm3 02/24/22 03:27 Lymphocytes # (Manual) 1.2 K/mm3 (1.2-5.4) 02/24/22 03:27 Abs React Lymphs (Man) 0.0 K/mm3 02/24/22 03:27 Monocytes # (Manual) 0.2 K/mm3 (0.0-0.8) 02/24/22 03:27 Eosinophils # (Manual) 0.3 K/mm3 (0.0-0.4) 02/24/22 03:27 Basophils # (Manual) 0.0 K/mm3 (0.0-0.1) 02/24/22 03:27 Metamyelocytes # 0.0 K/mm3 02/24/22 03:27 Myelocytes # 0.0 K/mm3 02/24/22 03:27 Promyelocytes # 0.0 K/mm3 02/24/22 03:27 Blast Cells # 0.0 K/mm3 02/24/22 03:27 WBC Morphology Not Reportable 02/24/22 03:27 Hypersegmented Neuts Not Reportable 02/24/22 03:27 Hyposegmented Neuts Not Reportable 02/24/22 03:27 Hypogranular Neuts Not Reportable 02/24/22 03:27 Smudge Cells Not Reportable 02/24/22 03:27 Toxic Granulation Not Reportable 02/24/22 03:27 Toxic Vacuolation Not Reportable 02/24/22 03:27 Dohle Bodies Not Reportable 02/24/22 03:27 Pelger-Huet Anomaly Not Reportable 02/24/22 03:27 Wally Rods Not Reportable 02/24/22 03:27 Platelet Estimate Cons 02/24/22 03:27 Clumped Platelets Not Reportable 02/24/22 03:27 Plt Clumps, EDTA Not Reportable 02/24/22 03:27 Large Platelets Not Reportable 02/24/22 03:27 Giant Platelets Not Reportable 02/24/22 03:27 Platelet Satelliting Not Reportable 02/24/22 03:27 Plt Morphology Comment Not Reportable 02/24/22 03:27 RBC Morphology Not Reportable 02/24/22 03:27 Dimorphic RBCs Not Reportable 02/24/22 03:27 Polychromasia Not Reportable 02/24/22 03:27 Hypochromasia Not Reportable 02/24/22 03:27 Poikilocytosis Not Reportable 02/24/22 03:27 Anisocytosis Not Reportable 02/24/22 03:27 Microcytosis Not Reportable 02/24/22 03:27 Macrocytosis Not Reportable 02/24/22 03:27 Spherocytes Not Reportable 02/24/22 03:27 Pappenheimer Bodies Not Reportable 02/24/22 03:27 Sickle Cells Not Reportable 02/24/22 03:27 Target Cells Not Reportable 02/24/22 03:27 Tear Drop Cells Not Reportable 02/24/22 03:27 Ovalocytes Not Reportable 02/24/22 03:27 Helmet Cells Not Reportable 02/24/22 03:27 [place] Bodies Not Reportable 02/24/22 03:27 [place] Rings Not Reportable 02/24/22 03:27 [place] Cells Not Reportable 02/24/22 03:27 Bite Cells Not Reportable 02/24/22 03:27 Crenated Cell Not Reportable 02/24/22 03:27 Elliptocytes Not Reportable 02/24/22 03:27 Acanthocytes (Spur) Not Reportable 02/24/22 03:27 Rouleaux Not Reportable 02/24/22 03:27 Hemoglobin C Crystals Not Reportable 02/24/22 03:27 Schistocytes Not Reportable 02/24/22 03:27 Malaria parasites Not Reportable 02/24/22 03:27 Julius Bodies Not Reportable 02/24/22 03:27 Hem Pathologist Commnt No 02/24/22 03:27 ABG pH 7.181 pH Units (7.350-7.450) L* 02/23/22 05:10 ABG pCO2 14.9 mm Hg 02/23/22 05:10 ABG pO2 119.5 mm Hg (80.0-90.0) H 02/23/22 05:10 ABG HCO3 5.4 mmol/L (20.0-26.0) L 02/23/22 05:10 ABG O2 Saturation 97.9 % (95.0-99.0) 02/23/22 05:10 ABG O2 Content 12.0 (0.0-44) 02/23/22 05:10 ABG Base Excess -20.9 mmol/L (-2.0-3.0) L 02/23/22 05:10 ABG Hemoglobin 8.7 gm/dl (14.0-18.0) L 02/23/22 05:10 ABG Carboxyhemoglobin 1.4 % (0.0-5.0) 02/23/22 05:10 ABG Methemoglobin 0.4 % (0.0-1.5) 02/23/22 05:10 Oxyhemoglobin 96.0 % (95.0-99.0) 02/23/22 05:10 FiO2 21 % 02/23/22 05:10 Sodium 133 mmol/L (137-145) L 02/24/22 15:14 Potassium 4.3 mmol/L (3.6-5.0) 02/24/22 15:14 Chloride 93.3 mmol/L (98-107) L 02/24/22 15:14 Carbon Dioxide 25 mmol/L (22-30) D 02/24/22 15:14 Anion Gap 19 mmol/L 02/24/22 15:14 BUN 13 mg/dL (9-20) 02/24/22 15:14 Creatinine 1.5 mg/dL (0.8-1.3) H 02/24/22 15:14 Estimated GFR > 60 ml/min 02/24/22 15:14 BUN/Creatinine Ratio 9 % 02/24/22 15:14 Glucose 90 mg/dL (75-100) 02/24/22 15:14 POC Glucose 105 mg/dL (70-105) 02/24/22 16:36 Lactic Acid 2.40 mmol/L (0.7-2.0) H* 02/23/22 11:32 Calcium 8.9 mg/dL (8.4-10.2) 02/24/22 15:14 Phosphorus 4.60 mg/dL (2.5-4.5) H 02/23/22 06:06 Magnesium 2.20 mg/dL (1.7-2.3) 02/23/22 06:06 Total Bilirubin 0.40 mg/dL (0.1-1.2) 02/23/22 04:18 AST 47 units/L (5-40) H 02/23/22 04:18 ALT 21 units/L (7-56) 02/23/22 04:18 Alkaline Phosphatase 171 units/L (35-129) H 02/23/22 04:18 Total Protein 7.8 g/dL (6.3-8.2) 02/23/22 04:18 Albumin 4.4 g/dL (3.9-5) 02/23/22 04:18 Albumin/Globulin Ratio 1.3 % 02/23/22 04:18 Urine Color Straw (Yellow) 02/23/22 08:03 Urine Turbidity Clear (Clear) 02/23/22 08:03 Specific [place] (Man) 1.015 (1.003-1.030) 02/23/22 08:03 Ur Protein (Man) 2+ mg/dL (Negative) 02/23/22 08:03 Ur Ketones (Man) 80 (Negative) 02/23/22 08:03 Urine Bilirubin (Man) Negative (Negative) 02/23/22 08:03 Urine WBC (Auto) < 1.0 /HPF (0.0-6.0) 02/23/22 08:03 Urine RBC (Auto) < 1.0 /HPF (0.0-6.0) 02/23/22 08:03 U Epithel Cells (Auto) < 1.0 /HPF (0-13.0) 02/23/22 08:03 Urine RBC (Manual) 2+ (Negative) 02/23/22 08:03 Urine Mucus Few /HPF 02/23/22 08:03 Urine Opiates Screen Negative 02/23/22 08:03 Urine Methadone Screen Negative 02/23/22 08:03 Ur Barbiturates Screen Negative 02/23/22 08:03 Ur Phencyclidine Scrn Negative 02/23/22 08:03 Ur Amphetamines Screen Negative 02/23/22 08:03 U Benzodiazepines Scrn Negative 02/23/22 08:03 Urine Cocaine Screen Negative 02/23/22 08:03 U Marijuana (THC) Screen Positive 02/23/22 08:03 Drugs of Abuse Note Disclamer 02/23/22 08:03 Plasma/Serum Alcohol < 0.01 % (0-0.07) 02/23/22 04:18 Active Medications - Current Medications Current Medications: Generic Name Dose Route Start Last Admin Trade Name Freq PRN Reason Stop Dose Admin Acetaminophen 650 mg 02/23/22 05:55 Acetaminophen 325 Mg Tab PO Q4H PRN Pain MILD(1-3)/Fever >100.5/HUSSEIN Albuterol 2.5 mg 02/23/22 05:55 Albuterol 2.5 Mg/3 Ml Nebu IH Q4HRT PRN Shortness Of Breath Amlodipine Besylate 5 mg 02/24/22 19:00 Amlodipine 5 Mg Tab PO QDAY MARCUS Dextrose 50 ml 02/24/22 17:46 Dextrose 50% In Water (25gm) 50 Ml Syringe IV Q30MIN PRN Hypoglycemia Protocol Docusate Sodium 100 mg 02/24/22 22:00 Docusate Sodium 100 Mg Cap PO BID MARCUS Famotidine 20 mg 02/23/22 10:00 02/24/22 09:32 Famotidine 20 Mg Tab PO 20 mg QAM MARCUS Administration Hydralazine HCl 10 mg 02/24/22 09:00 Hydralazine 20 Mg/1 Ml Inj IV Q4H PRN Hypertension Hydromorphone HCl 1 mg 02/23/22 16:50 02/24/22 09:30 Hydromorphone 1 Mg/1 Ml Inj IV 1 mg Q4H PRN Administration Pain , Severe (7-10) Insulin Human Regular 100 100 mls @ 1 mls/hr 02/23/22 06:00 02/24/22 18:30 units/ Sodium Chloride IV 1.5 units/hr TITR MARCUS 1.5 mls/hr Titration Protocol 1 UNITS/HR Sodium Chloride 1,000 mls @ 150 mls/hr 02/23/22 06:00 02/23/22 12:38 Nacl 0.45% 1000 Ml IV 150 mls/hr DIRECT MARCUS Administration Ampicillin Sodium/Sulbactam Sodium 3 gm in 100 mls @ 200 mls/hr 02/24/22 12:00 02/24/22 18:38 Unasyn/Ns 3 Gm/100 Ml IV 200 mls/hr Q6HR MARCUS Administration Protocol Sodium Chloride 1,000 mls @ 75 mls/hr 02/24/22 18:45 Nacl 0.9% 1000 Ml IV 02/25/22 08:04 DIRECT MARCUS Insulin Glargine 24 units 02/24/22 17:47 02/24/22 18:33 Insulin Glargine 100 Units/Ml SUB-Q 24 units QHS MARCUS Administration Insulin Human Lispro 0 unit 02/24/22 22:00 Insulin Lispro 100 Unit/Ml SUB-Q ACHS MARCUS Protocol Morphine Sulfate 2 mg 02/23/22 05:55 02/24/22 11:37 Morphine 2 Mg/1 Ml Inj IV 2 mg Q4H PRN Administration Pain, Moderate (4-6) Ondansetron HCl 4 mg 02/23/22 05:55 02/23/22 12:33 Ondansetron 4 Mg/2 Ml Inj IV 4 mg Q8H PRN Administration Nausea And Vomiting Oxycodone/Acetaminophen 1 tab 02/23/22 05:26 Oxycodone /Acetaminophen 5-325mg Tab PO Q6H PRN Pain, Moderate (4-6) Sodium Chloride 10 ml 02/23/22 10:00 02/24/22 09:31 Sodium Chloride 0.9% 10 Ml Flush Syringe IV 10 ml BID MARCUS Administration Sodium Chloride 10 ml 02/23/22 05:26 Sodium Chloride 0.9% 10 Ml Flush Syringe IV PRN PRN LINE FLUSH Nutrition/Malnutrition Assess - Dietary Evaluation Nutrition/Malnutrition Findings: Nutrition Notes Start: 02/23/22 16:40 Freq: Status: Active Protocol: Document 02/23/22 16:40 TAMI (Rec: 02/23/22 17:14 TAMI [id number]) Nutrition Notes Need for Assessment generated from: MD Order,Education,Low BMI Initial or Follow up Assessment Current Diagnosis Acute Kidney Injury,Diabetes Other Pertinent Diagnosis N/V/Abdominal Pain, DKA, Leukocytosis, SIRS, R- Posterior Calcaneal Fracture Current Diet NPO (since 02/23 05:56), Consistent Carbohydrates+D Suppl (from B 02/24). Labs/Tests 02/23: Na 135, Cl 93.8, CO2 11 , BUN 36, Crea 2.6, Glu 418. Pertinent Medications 02/23: D5w @ 125ml/hr, KCl 20mEq, others nutritionally unremarkable. 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 Anthropometrics have been corrected, Pt no longer a Low BMI. Weight Status Appropriate Subjective/Other Information RD consult for nutrition education and Low BMI assessment. Pt currently on NPO. Per MD diet can be advanced to PO, according to [place] & Physical notes. Pt is on Room Air, O2 saturation @ 99%, according to Physical Assessment History notes. Pt presents a R-Ankle traumatic wound as sign of concern for skin risk at the time, according to Physical Assessment History notes. I will prescribe dietary supplements to support wound healing processes during LOS. Pt complains of N/V/ Generalized Pain, according to History & Physical notes. Anthropometrics have been corrected, Pt no longer a Low BMI. Pt still in critical condition , not a candidate for Nutrition Education at the time, will assess feasibility on F/U. Percent of energy/protein needs met: Pt currently on NPO. When pertinent, advance to prescribed Consistent Carbohydrates Diet provides for energy/protein needs (2, 061 Kcal/91 g) during LOS; additionally, Dietary Supplements will support wound healing processes with 360 Kcal and 36 g of protein. Burn Absent Trauma Present GI Symptoms Nausea,Vomiting,Other Food Allergy No Skin Integrity/Comment R-Ankle traumatic wound. 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 Etiology R-Posterior Calcaneal Fracture As Evidenced by Signs and Symptoms R-Ankle traumatic open wound, with bone exposure. Is patient on ventilator? No Is Patient Ambulatory and/or Out of Bed Yes REE-([place]-ambulatory/OOB) [ [id number] [id number]] Calculation Used for Recommendations [facility] Additional Notes Protein: 1.25-1.5 g/Kg ABW; 70 -84 g/day. Fluids: 1 ml/Kcal, or as per MD. Nutrition Intervention Change Diet Order: Advance to Consistent Carbohydrates Diet as tolerated. Add Supplement/Snack (indicate name/kcal Start Ensure High Protein :BID /protein ) . Provides kCal: 360 Provides Protein (gm) 36 Goal #1 Support, through dietary supplementation, wound healing processes during LOS. Goal #2 Adjust the dietary intervention to better serve Pt's needs and clinical conditions during LOS. Follow-Up By: 03/02/22 Additional Comments Nutrition education will be provided at F/U, if feasible. Start monitoring food tolerance, %PO intake of meals , dietary supplements, and BM.
[2022-02-24] MEDS: amLODIPine 5 MG TAB PO SCH (19:10)
[2022-02-24] MEDS: DOCUSATE SODIUM 100 MG CAP PO SCH (22:10)
[2022-02-24] MEDS: INSULIN LISPRO 100 UNIT/ML SUB-Q SCH (22:21)
[2022-02-25] MEDS: AMPICILLIN/SULBACTA 3GM/100ML 3 GM/100 ML BAG IV SCH ×3 (00:51→11:10)
[2022-02-25 04:31] LABS: Hematocrit 34.8 % (35.5-45.6); Hemoglobin 11.2 gm/dl (11.8-15.2); Mean Corpuscular HGB Conc 32 % (32-34); Mean Corpuscular Volume 93 fl (84-94); Platelet Count 189 K/mm3 (140-440); Red Blood Count 3.74 M/mm3 (3.65-5.03); Red Cell Distribution Width 13.6 % (13.2-15.2)
[2022-02-25 04:47] LABS: BUN/Creatinine Ratio 7; Blood Urea Nitrogen 10 mg/dL (9-20); Calcium 8.9 mg/dL (8.4-10.2); Hemolysis Index 15
[2022-02-25] MEDS: INSULIN LISPRO 100 UNIT/ML SUB-Q SCH ×3 (07:51→16:47)
[2022-02-25] MEDS ORDERED: SODIUM PHOSPHATE 30 MMOL in SODIUM CHLORIDE 0.9% 500 ML 500 ML IV SCH (08:00)
[2022-02-25] MEDS ORDERED: MAGNESIUM SULFATE 4 GM/100 ML BAG IV SCH (08:00)
[2022-02-25] MEDS: amLODIPine 5 MG TAB PO SCH (09:05)
[2022-02-25] MEDS: DOCUSATE SODIUM 100 MG CAP PO SCH (09:05)
[2022-02-25] MEDS: FAMOTIDINE 20 MG TAB PO SCH (09:05)
[2022-02-25] MEDS ORDERED: MAGNESIUM HYDROXIDE (MOM) ORAL LIQD UDC PO PRN (09:35)
--- NOTE | 2022-02-25 10:20 | Progress Note ---
Assessment and Plan - Patient Problems (1) KARLO (acute kidney injury) Current Visit: No Status: Acute Plan to address problem: Acute kidney injury secondary to volume depletion secondary to GI losses and also renal losses from osmotic diuresis due to hyperglycemia. Kidney function is improving. Continue volume repletion and follow-up electrolytes and renal function. (2) DKA (diabetic ketoacidosis) Current Visit: Yes Status: Acute Plan to address problem: Resolved. Change to subcutaneous insulin per primary attending and follow-up blood sugar (3) Hyperkalemia Current Visit: Yes Status: Acute Plan to address problem: Resolved with aggressive medical management. Magnesium and phosphorus low today. Supplement magnesium and phosphorus and follow-up levels. (4) Lactic acidosis Current Visit: Yes Status: Acute Plan to address problem: Secondary to hypoperfusion. Resolved. (5) Seizure Current Visit: Yes Status: Acute Plan to address problem: Management by primary attending. (6) Abdominal pain Current Visit: No Status: Acute Qualifiers: Abdominal location: epigastric Qualified Code(s): R10.13 - Epigastric pain Plan to address problem: Suspect related to diabetic ketoacidosis. Resolved. Monitor symptoms (7) Hypertension Current Visit: No Status: Acute Qualifiers: Hypertension type: primary hypertension Qualified Code(s): I10 - Essential (primary) hypertension Plan to address problem: Follow-up blood pressure Subjective Date of service: 02/25/22 Principal diagnosis: Acute kidney injury, diabetic ketoacidosis Interval history: Patient seen lying in bed in ICU. He still complains of pain all over but it is significantly better. No more nausea or vomiting. No fever or chills Objective - Exam Narrative Exam: Young -[place] male lying in bed in no acute distress HEENT: NCAT, pink conjunctiva, anicteric sclera Neck: Supple, no venous distention CVS: S1S2 RRR with no murmur, rub or gallop Chest: Clear to auscultation Abdomen: Protuberant, soft, nontender, no organomegaly, bowel sounds are present Extremities: No edema Genitourinary deferred Skin hyperpigmented spots/scars in both legs. Splint right ankle Neuro: Awake, alert no focal deficits - Vital Signs Vital signs: Vital Signs - 12hr 02/24/22 02/24/22 02/25/22 23:00 23:06 00:00 Temperature 99.3 F Pulse Rate 91 H 92 H 109 H Pulse Rate [ 88 From Monitor] Pulse Rate [ None] Respiratory 9 L 10 L 11 L Rate Blood Pressure 136/87 136/87 105/67 O2 Sat by Pulse 98 97 97 Oximetry 02/25/22 02/25/22 02/25/22 01:00 02:00 03:00 Temperature Pulse Rate 86 89 Pulse Rate [ From Monitor] Pulse Rate [ None] Respiratory 12 12 Rate Blood Pressure 148/95 148/95 169/106 O2 Sat by Pulse 98 100 100 Oximetry 02/25/22 02/25/22 02/25/22 04:00 04:01 05:01 Temperature Pulse Rate 97 H 120 H 98 H Pulse Rate [ 88 From Monitor] Pulse Rate [ None] Respiratory 9 L 13 11 L Rate Blood Pressure 96/61 96/61 O2 Sat by Pulse 100 99 97 Oximetry 02/25/22 02/25/22 02/25/22 06:01 07:00 07:30 Temperature 98.9 F Pulse Rate 91 H Pulse Rate [ From Monitor] Pulse Rate [ 91 H None] Respiratory 12 12 Rate Blood Pressure 96/61 122/89 122/89 O2 Sat by Pulse 99 99 99 Oximetry 02/25/22 02/25/22 02/25/22 08:00 08:01 09:00 Temperature Pulse Rate 91 H 82 Pulse Rate [ 90 From Monitor] Pulse Rate [ None] Respiratory 12 11 L Rate Blood Pressure 122/89 147/98 O2 Sat by Pulse 99 99 99 Oximetry 02/25/22 09:05 Temperature Pulse Rate 91 H Pulse Rate [ From Monitor] Pulse Rate [ None] Respiratory Rate Blood Pressure 147/98 O2 Sat by Pulse Oximetry - Lab 02/25/22 04:04 02/25/22 04:04 Most recent lab results ABG pH 7.181 pH Units (7.350-7.450) L* 02/23/22 05:10 ABG pCO2 14.9 mm Hg 02/23/22 05:10 ABG pO2 119.5 mm Hg (80.0-90.0) H 02/23/22 05:10 ABG HCO3 5.4 mmol/L (20.0-26.0) L 02/23/22 05:10 ABG O2 Saturation 97.9 % (95.0-99.0) 02/23/22 05:10 Calcium 8.9 mg/dL (8.4-10.2) 02/25/22 04:04 Phosphorus 2.30 mg/dL (2.5-4.5) L 02/25/22 04:04 Magnesium 1.60 mg/dL (1.7-2.3) L 02/25/22 04:04 Medications & Allergies - Medications Allergies/Adverse Reactions: Allergies Sulfa (Sulfonamide Antibiotics) Allergy (Verified 02/22/22 10:17) Itching patient gets rash or experiences wheezing/cough if he inhales it. Home Medications: Home Medications Medication Instructions Recorded Confirmed Last Taken Type HYDROcodone/APAP 7.5-325 [[place] 1 each PO Q6HR PRN 02/22/22 02/22/22 1 Week Ago History 7.5-325 mg TAB] ~02/15/22 Insulin NPH/Regular [NovoLIN 70/30] 15 unit SUB-Q TID 30 Days #1350 02/22/22 02/22/22 02/12/22 Rx units Syringe,Needle,Insuln,Sf 0.5ML 1 each MC TID 30 Days #100 each 02/22/22 Unknown Rx [Easy Touch Insulin Safety] Active Medications: Generic Name Dose Route Start Last Admin Trade Name Freq PRN Reason Stop Dose Admin Acetaminophen 650 mg 02/23/22 05:55 Acetaminophen 325 Mg Tab PO Q4H PRN Pain MILD(1-3)/Fever >100.5/HUSSEIN Albuterol 2.5 mg 02/23/22 05:55 Albuterol 2.5 Mg/3 Ml Nebu IH Q4HRT PRN Shortness Of Breath Amlodipine Besylate 5 mg 02/24/22 19:00 02/25/22 09:05 Amlodipine 5 Mg Tab PO 5 mg QDAY MARCUS Administration Dextrose 50 ml 02/24/22 17:46 Dextrose 50% In Water (25gm) 50 Ml Syringe IV Q30MIN PRN Hypoglycemia Protocol Docusate Sodium 100 mg 02/24/22 22:00 02/25/22 09:05 Docusate Sodium 100 Mg Cap PO 100 mg BID MARCUS Administration Famotidine 20 mg 02/23/22 10:00 02/25/22 09:05 Famotidine 20 Mg Tab PO 20 mg QAM MARCUS Administration Hydralazine HCl 10 mg 02/24/22 09:00 Hydralazine 20 Mg/1 Ml Inj IV Q4H PRN Hypertension Hydromorphone HCl 1 mg 02/23/22 16:50 02/24/22 09:30 Hydromorphone 1 Mg/1 Ml Inj IV 1 mg Q4H PRN Administration Pain , Severe (7-10) Ampicillin Sodium/Sulbactam Sodium 3 gm in 100 mls @ 200 mls/hr 02/24/22 12:00 02/25/22 06:45 Unasyn/Ns 3 Gm/100 Ml IV 200 mls/hr Q6HR MARCUS Administration Protocol Sodium Phosphate 30 mmol/ 510 mls @ 125 mls/hr 02/25/22 08:00 02/25/22 10:10 Sodium Chloride IV 02/25/22 12:00 125 mls/hr ONCE@0800 [facility] Administration Magnesium Sulfate 4 gm in 100 mls @ 25 mls/hr 02/25/22 08:00 02/25/22 09:06 Magnesium Sulfate 4gm/100ml IV 02/25/22 12:00 25 mls/hr ONCE@0800 [facility] Administration Insulin Glargine 24 units 02/24/22 17:47 02/24/22 22:21 Insulin Glargine 100 Units/Ml SUB-Q Not Given QHS [facility] Insulin Human Lispro 0 unit 02/24/22 22:00 02/25/22 07:51 Insulin Lispro 100 Unit/Ml SUB-Q Not Given ACHS [facility] Protocol Magnesium Hydroxide 30 ml 02/25/22 09:35 Magnesium Hydroxide (Mom) Oral Liqd Udc PO Q4H PRN Constipation Morphine Sulfate 2 mg 02/23/22 05:55 02/24/22 11:37 Morphine 2 Mg/1 Ml Inj IV 2 mg Q4H PRN Administration Pain, Moderate (4-6) Ondansetron HCl 4 mg 02/23/22 05:55 02/23/22 12:33 Ondansetron 4 Mg/2 Ml Inj IV 4 mg Q8H PRN Administration Nausea And Vomiting Oxycodone/Acetaminophen 1 tab 02/23/22 05:26 02/24/22 22:25 Oxycodone /Acetaminophen 5-325mg Tab PO 1 tab Q6H PRN Administration Pain, Moderate (4-6) Sodium Chloride 10 ml 02/23/22 10:00 02/25/22 09:06 Sodium Chloride 0.9% 10 Ml Flush Syringe IV 10 ml BID MARCUS Administration Sodium Chloride 10 ml 02/23/22 05:26 Sodium Chloride 0.9% 10 Ml Flush Syringe IV PRN PRN LINE FLUSH
--- NOTE | 2022-02-25 11:59 | Progress Note ---
Assessment and Plan 41 y/o male with dKA in the prescence of exposed bone on left heal fracture. 02/25/22: Continue IV abx. Discussed on rounds ID consult. Will repeat imaging but was waiting on ortho. Sepsis does appear to be improving on current abx but duration of therapy needed is unknown. DKA has resolved. Transition to floor. Will sign off. 02/24/22: Continue IV abx therapy. White count is improving. Follow up ortho recs. Continue insulin drip until gap closes again and then reassess total insulin requirements and attempt long acting based on that. Pain control 1. DKA likely resulting from sepsis secondary to fracture. Will empirically place on Unasyn. IMS has spoken to our local Ortho physician 2. IVF's and insulin therapy 3. Pain control 4. NPO, q1 hour fingersticks, once sugar is below 250, change fluids to D5 +/- K supplementation. Guarded prognosis. CCt 31 minutes. Subjective Date of service: 02/25/22 Principal diagnosis: Acute kidney injury, diabetic ketoacidosis Interval history: Gap closed. Still in pain. Awaiting Ortho eval. Objective - Constitutional Vitals: Vital Signs - 12hr 02/25/22 02/25/22 02/25/22 00:00 01:00 02:00 Temperature 99.3 F Pulse Rate 109 H 86 Pulse Rate [ 88 From Monitor] Pulse Rate [ None] Respiratory 11 L 12 Rate Blood Pressure 105/67 148/95 148/95 O2 Sat by Pulse 97 98 100 Oximetry 02/25/22 02/25/22 02/25/22 03:00 04:00 04:01 Temperature Pulse Rate 89 97 H 120 H Pulse Rate [ 88 From Monitor] Pulse Rate [ None] Respiratory 12 9 L 13 Rate Blood Pressure 169/106 96/61 O2 Sat by Pulse 100 100 99 Oximetry 02/25/22 02/25/22 02/25/22 05:01 06:01 07:00 Temperature Pulse Rate 98 H 91 H Pulse Rate [ From Monitor] Pulse Rate [ None] Respiratory 11 L 12 Rate Blood Pressure 96/61 96/61 122/89 O2 Sat by Pulse 97 99 99 Oximetry 02/25/22 02/25/22 02/25/22 07:30 08:00 08:01 Temperature 98.9 F Pulse Rate 91 H Pulse Rate [ 90 From Monitor] Pulse Rate [ 91 H None] Respiratory 12 12 Rate Blood Pressure 122/89 122/89 O2 Sat by Pulse 99 99 99 Oximetry 02/25/22 02/25/22 09:00 09:05 Temperature Pulse Rate 82 91 H Pulse Rate [ From Monitor] Pulse Rate [ None] Respiratory 11 L Rate Blood Pressure 147/98 147/98 O2 Sat by Pulse 99 Oximetry - Labs CBC & Chem 7: 02/25/22 04:04 02/25/22 04:04 Labs: Abnormal lab results 02/24/22 02/24/22 02/24/22 Range/Units 07:27 09:28 10:28 Hgb (11.8-15.2) gm/dl Hct (35.5-45.6) % Sodium (137-145) mmol/L Chloride (98-107) mmol/L Creatinine (0.8-1.3) mg/dL Glucose (75-100) mg/dL POC Glucose 126 H 116 H 131 H (70-105) mg/dL Phosphorus (2.5-4.5) mg/dL Magnesium (1.7-2.3) mg/dL 02/24/22 02/24/22 02/24/22 Range/Units 11:30 12:25 13:47 Hgb (11.8-15.2) gm/dl Hct (35.5-45.6) % Sodium (137-145) mmol/L Chloride (98-107) mmol/L Creatinine (0.8-1.3) mg/dL Glucose (75-100) mg/dL POC Glucose 162 H 194 H 156 H (70-105) mg/dL Phosphorus (2.5-4.5) mg/dL Magnesium (1.7-2.3) mg/dL 02/24/22 02/24/22 02/24/22 Range/Units 14:30 15:14 17:30 Hgb (11.8-15.2) gm/dl Hct (35.5-45.6) % Sodium 133 L (137-145) mmol/L Chloride 93.3 L (98-107) mmol/L Creatinine 1.5 H (0.8-1.3) mg/dL Glucose (75-100) mg/dL POC Glucose 113 H 140 H (70-105) mg/dL Phosphorus (2.5-4.5) mg/dL Magnesium (1.7-2.3) mg/dL 02/24/22 02/24/22 02/25/22 Range/Units 18:30 22:20 04:04 Hgb 11.2 L (11.8-15.2) gm/dl Hct 34.8 L (35.5-45.6) % Sodium (137-145) mmol/L Chloride (98-107) mmol/L Creatinine (0.8-1.3) mg/dL Glucose (75-100) mg/dL POC Glucose 149 H 134 H (70-105) mg/dL Phosphorus (2.5-4.5) mg/dL Magnesium (1.7-2.3) mg/dL 02/25/22 02/25/22 Range/Units 04:04 07:21 Hgb (11.8-15.2) gm/dl Hct (35.5-45.6) % Sodium 134 L (137-145) mmol/L Chloride 94.9 L (98-107) mmol/L Creatinine 1.4 H (0.8-1.3) mg/dL Glucose 143 H (75-100) mg/dL POC Glucose 115 H (70-105) mg/dL Phosphorus 2.30 L (2.5-4.5) mg/dL Magnesium 1.60 L (1.7-2.3) mg/dL Medications & Allergies - Medications Allergies/Adverse Reactions: Allergies Sulfa (Sulfonamide Antibiotics) Allergy (Verified 02/22/22 10:17) Itching patient gets rash or experiences wheezing/cough if he inhales it. Home Medications: Home Medications Medication Instructions Recorded Confirmed Last Taken Type HYDROcodone/APAP 7.5-325 [[place] 1 each PO Q6HR PRN 02/22/22 02/22/22 1 Week Ago History 7.5-325 mg TAB] ~02/15/22 Insulin NPH/Regular [NovoLIN 70/30] 15 unit SUB-Q TID 30 Days #1350 02/22/22 02/22/22 02/12/22 Rx units Syringe,Needle,Insuln,Sf 0.5ML 1 each MC TID 30 Days #100 each 02/22/22 Unknown Rx [Easy Touch Insulin Safety] Active Medications: Generic Name Dose Route Start Last Admin Trade Name Freq PRN Reason Stop Dose Admin Acetaminophen 650 mg 02/23/22 05:55 Acetaminophen 325 Mg Tab PO Q4H PRN Pain MILD(1-3)/Fever >100.5/HUSSEIN Albuterol 2.5 mg 02/23/22 05:55 Albuterol 2.5 Mg/3 Ml Nebu IH Q4HRT PRN Shortness Of Breath Amlodipine Besylate 5 mg 02/24/22 19:00 02/25/22 09:05 Amlodipine 5 Mg Tab PO 5 mg QDAY MARCUS Administration Dextrose 50 ml 02/24/22 17:46 Dextrose 50% In Water (25gm) 50 Ml Syringe IV Q30MIN PRN Hypoglycemia Protocol Docusate Sodium 100 mg 02/24/22 22:00 02/25/22 09:05 Docusate Sodium 100 Mg Cap PO 100 mg BID MARCUS Administration Famotidine 20 mg 02/23/22 10:00 02/25/22 09:05 Famotidine 20 Mg Tab PO 20 mg QAM MARCUS Administration Hydralazine HCl 10 mg 02/24/22 09:00 Hydralazine 20 Mg/1 Ml Inj IV Q4H PRN Hypertension Hydromorphone HCl 1 mg 02/23/22 16:50 02/24/22 09:30 Hydromorphone 1 Mg/1 Ml Inj IV 1 mg Q4H PRN Administration Pain , Severe (7-10) Ampicillin Sodium/Sulbactam Sodium 3 gm in 100 mls @ 200 mls/hr 02/24/22 12:00 02/25/22 11:10 Unasyn/Ns 3 Gm/100 Ml IV 200 mls/hr Q6HR MARCUS Administration Protocol Sodium Phosphate 30 mmol/ 510 mls @ 125 mls/hr 02/25/22 08:00 02/25/22 10:10 Sodium Chloride IV 02/25/22 12:00 125 mls/hr ONCE@0800 MARCUS Administration Magnesium Sulfate 4 gm in 100 mls @ 25 mls/hr 02/25/22 08:00 02/25/22 09:06 Magnesium Sulfate 4gm/100ml IV 02/25/22 12:00 25 mls/hr ONCE@0800 MARCUS Administration Insulin Glargine 24 units 02/24/22 17:47 02/24/22 22:21 Insulin Glargine 100 Units/Ml SUB-Q Not Given QHS [facility] Insulin Human Lispro 0 unit 02/24/22 22:00 02/25/22 07:51 Insulin Lispro 100 Unit/Ml SUB-Q Not Given ACHS [facility] Protocol Magnesium Hydroxide 30 ml 02/25/22 09:35 Magnesium Hydroxide (Mom) Oral Liqd Udc PO Q4H PRN Constipation Morphine Sulfate 2 mg 02/23/22 05:55 02/24/22 11:37 Morphine 2 Mg/1 Ml Inj IV 2 mg Q4H PRN Administration Pain, Moderate (4-6) Ondansetron HCl 4 mg 02/23/22 05:55 02/23/22 12:33 Ondansetron 4 Mg/2 Ml Inj IV 4 mg Q8H PRN Administration Nausea And Vomiting Oxycodone/Acetaminophen 1 tab 02/23/22 05:26 02/24/22 22:25 Oxycodone /Acetaminophen 5-325mg Tab PO 1 tab Q6H PRN Administration Pain, Moderate (4-6) Sodium Chloride 10 ml 02/23/22 10:00 02/25/22 09:06 Sodium Chloride 0.9% 10 Ml Flush Syringe IV 10 ml BID MARCUS Administration Sodium Chloride 10 ml 02/23/22 05:26 Sodium Chloride 0.9% 10 Ml Flush Syringe IV PRN PRN LINE FLUSH
--- NOTE | 2022-02-25 13:55 | Progress Note ---
<GAVINLeoncioBALANatan - Last Filed: 02/25/22 14:03> Assessment and Plan Assessment and plan: This is a 41-year-old male with IDDM admitted with DKA, posterior calcaneal fracture, likely hypoglycemic seizure, lactic acidosis, acute kidney injury, hyperkalemia Neuro: Seizure, acute pain -Reported seizure prior to admission -Suspect hypoglycemic seizure -Further seizure activity noted -Analgesia as needed -Reorientation as needed -Maintain sleep-wake cycle -aspiration/seizure precautions -CT head shows no acute intracranial abnormality, left occipital scalp contusion -UDS positive for marijuana Cardiac: Hypertension -Norvasc -As needed hydralazine -Blood pressure monitoring per protocol -Troponin less than 0.010 Respiratory: NAD -Supplemental oxygen as needed -SPO2 monitor per protocol -Pulmonary hygiene GI: NAD -24 hours -1377 mL -PPI -CC diet -BR: Colace : Acute kidney injury secondary to vasomotor nephropathy, hyponatremia -Nephrology consulted, appreciate recommendations -Monitor intake and output -Renally dose medications -Avoid nephrotoxic medications -Trend BMP ID: SIRS with organ dysfunction, lactic acidosis -Infectious disease consulted, appreciate recommendations -WOCN consulted -Presented with leukocytosis, lactic acidosis, exposed bone fracture -Antibiotic therapy with Unasyn -Monitor WBC and temperature curve Endo: S/p DKA, H/o IDDM -Presented with weakness, nausea vomiting, severe leg pain -Presented with anion gap of 30, blood glucose 403, ketonuria, ABG pH 7.181, bicarb 4 and admission -S/p DKA protocol and insulin drip -SSI -Accu-Cheks q. ACH S -Long-acting insulin, titrate as needed -Hemoglobin A1c pending -Avoid hypoglycemia Heme: Leukocytosis -Trend CBC -Transfuse hemoglobin less than 7 -SCDs to BLE while in bed MS: Posterior calcaneal fracture -Orthopedics consulted, appreciate recommendations -Open wound on posterior aspect of right heel, 3 cm wound with exposed bone visualized -Per patient/chart review injury acquired when patient was moving a washer on January 23 -Patient was examined in the emergency department on 01/23, XR of the foot demonstrated posterior calcaneal fracture however the patient was discharged and advised to follow-up with orthopedics outpatient by patient did not follow-up -As needed analgesia -Antibiotic therapy with Unasyn IV -Wound care consult -Repeat foot/ankle imaging pending The high probability of a clinically significant, sudden or life threatening deterioration of the [multi] system(s) required my full and direct attention, intervention and personal management. The aggregate critical care time was [60] minutes. This time is in addition to time spent performing reported procedures but includes the following: [x] Data Review and interpretation [x] Patient assessment and monitoring of vital signs [x] Documentation [x] Medication orders and management Disposition Plan: transfer to floor Total Time Spent with Patient (Minutes): 60 History Interval history: This is a 41-year-old male with DM who presented to the emergency department on 02/23 with complaints of weakness, fatigue, nausea, vomiting, and generalized pain. In the emergency department patient was found to have leukocytosis of 17. 5, pH of 7.181, PCO2 of 41.9, hyperglycemia at 747, lactic acid of 6.1, elevated BUN/creatinine at 37/2.8, hyperkalemia at 7.3, and bicarbonate of 4 consistent with DKA with significant elevation to anion gap, metabolic acidosis and hyperkalemia. Patient was resuscitated with normal saline, given insulin IV push and started on insulin drip, given multiple rounds of bicarbonate, calcium gluconate and started on a bicarbonate drip. Patient was admitted to the hospitalist service with DKA with consults to nephrology and CCM. Hospital course to date: 02/23: Continue insulin gtt and IVF. Patient complaining of severe right heel pain. upon unwrapping dressing, open wound approximately 3 cm in diameter with exposed bone visualized. Initiated on unasyn IV for empiric coverage. Orthopedic surgery, Dr. Turcios consulted. 02/24: Patient still complains of pain, wanting something to eat. Patient anion gap is not closed this morning and was given an LR bolus dose of anion gap closing at 1400 BMP. This BMP resulted at 1500 and anion gap was noted to be 1 4, transition to SSI, started on a CC diet, and long-acting insulin. 02/25: Infectious disease consulted, RN noted T wave inversions, twelve-lead ECG showed T wave inversions. Cardiac enzymes within normal limits. Patient does not complain of any chest pain, radiation, jaw pain, nausea or vomiting. He is complaining of abdominal discomfort which he attributes to stool softener. Patient will be transferred to the floor. Phosphorus and magnesium repleted. Orthopedics contacted . Renal function is improving Hospitalist Physical - Constitutional Vitals: Temp Pulse Resp BP Pulse Ox 98.9 F 106 H 12 140/95 100 02/25/22 07:30 02/25/22 12:00 02/25/22 12:00 02/25/22 12:01 02/25/22 12:01 General appearance: Present: no acute distress, well-nourished HEART Score - HEART Score Troponin: Troponin T < 0.010 ng/mL (0.00-0.029) 02/25/22 11:39 Results - Labs CBC & Chem 7: 02/25/22 04:04 02/25/22 04:04 Labs: Laboratory Last Values WBC 7.2 K/mm3 (4.5-11.0) 02/25/22 04:04 RBC 3.74 M/mm3 (3.65-5.03) 02/25/22 04:04 Hgb 11.2 gm/dl (11.8-15.2) L 02/25/22 04:04 Hct 34.8 % (35.5-45.6) L 02/25/22 04:04 MCV 93 fl (84-94) 02/25/22 04:04 MCH 30 pg (28-32) 02/25/22 04:04 MCHC 32 % (32-34) 02/25/22 04:04 RDW 13.6 % (13.2-15.2) 02/25/22 04:04 Plt Count 189 K/mm3 (140-440) 02/25/22 04:04 Lymph % (Auto) 5.3 % (13.4-35.0) L 02/23/22 04:18 Maries % (Auto) 4.0 % (0.0-7.3) 02/23/22 04:18 Eos % (Auto) 0.0 % (0.0-4.3) 02/23/22 04:18 Baso % (Auto) 0.7 % (0.0-1.8) 02/23/22 04:18 Lymph # (Auto) 0.9 K/mm3 (1.2-5.4) L 02/23/22 04:18 Maries # (Auto) 0.7 K/mm3 (0.0-0.8) 02/23/22 04:18 Eos # (Auto) 0.0 K/mm3 (0.0-0.4) 02/23/22 04:18 Baso # (Auto) 0.1 K/mm3 (0.0-0.1) 02/23/22 04:18 Add Manual Diff Complete 02/24/22 03:27 Total Counted 100 02/24/22 03:27 Seg Neutrophils % 90.0 % (40.0-70.0) H 02/23/22 04:18 Seg Neuts % (Manual) 85.0 % (40.0-70.0) H 02/24/22 03:27 Band Neutrophils % 0 % 02/24/22 03:27 Lymphocytes % (Manual) 10.0 % (13.4-35.0) L 02/24/22 03:27 Reactive Lymphs % (Man) 0 % 02/24/22 03:27 Monocytes % (Manual) 2.0 % (0.0-7.3) 02/24/22 03:27 Eosinophils % (Manual) 3.0 % (0.0-4.3) 02/24/22 03:27 Basophils % (Manual) 0 % (0.0-1.8) 02/24/22 03:27 Metamyelocytes % 0 % 02/24/22 03:27 Myelocytes % 0 % 02/24/22 03:27 Promyelocytes % 0 % 02/24/22 03:27 Blast Cells % 0 % 02/24/22 03:27 Nucleated RBC % Not Reportable 02/24/22 03:27 Seg Neutrophils # 15.8 K/mm3 (1.8-7.7) H 02/23/22 04:18 Seg Neutrophils # Man 9.8 K/mm3 (1.8-7.7) H 02/24/22 03:27 Band Neutrophils # 0.0 K/mm3 02/24/22 03:27 Lymphocytes # (Manual) 1.2 K/mm3 (1.2-5.4) 02/24/22 03:27 Abs React Lymphs (Man) 0.0 K/mm3 02/24/22 03:27 Monocytes # (Manual) 0.2 K/mm3 (0.0-0.8) 02/24/22 03:27 Eosinophils # (Manual) 0.3 K/mm3 (0.0-0.4) 02/24/22 03:27 Basophils # (Manual) 0.0 K/mm3 (0.0-0.1) 02/24/22 03:27 Metamyelocytes # 0.0 K/mm3 02/24/22 03:27 Myelocytes # 0.0 K/mm3 02/24/22 03:27 Promyelocytes # 0.0 K/mm3 02/24/22 03:27 Blast Cells # 0.0 K/mm3 02/24/22 03:27 WBC Morphology Not Reportable 02/24/22 03:27 Hypersegmented Neuts Not Reportable 02/24/22 03:27 Hyposegmented Neuts Not Reportable 02/24/22 03:27 Hypogranular Neuts Not Reportable 02/24/22 03:27 Smudge Cells Not Reportable 02/24/22 03:27 Toxic Granulation Not Reportable 02/24/22 03:27 Toxic Vacuolation Not Reportable 02/24/22 03:27 Dohle Bodies Not Reportable 02/24/22 03:27 Pelger-Huet Anomaly Not Reportable 02/24/22 03:27 Wally Rods Not Reportable 02/24/22 03:27 Platelet Estimate Cons 02/24/22 03:27 Clumped Platelets Not Reportable 02/24/22 03:27 Plt Clumps, EDTA Not Reportable 02/24/22 03:27 Large Platelets Not Reportable 02/24/22 03:27 Giant Platelets Not Reportable 02/24/22 03:27 Platelet Satelliting Not Reportable 02/24/22 03:27 Plt Morphology Comment Not Reportable 02/24/22 03:27 RBC Morphology Not Reportable 02/24/22 03:27 Dimorphic RBCs Not Reportable 02/24/22 03:27 Polychromasia Not Reportable 02/24/22 03:27 Hypochromasia Not Reportable 02/24/22 03:27 Poikilocytosis Not Reportable 02/24/22 03:27 Anisocytosis Not Reportable 02/24/22 03:27 Microcytosis Not Reportable 02/24/22 03:27 Macrocytosis Not Reportable 02/24/22 03:27 Spherocytes Not Reportable 02/24/22 03:27 Pappenheimer Bodies Not Reportable 02/24/22 03:27 Sickle Cells Not Reportable 02/24/22 03:27 Target Cells Not Reportable 02/24/22 03:27 Tear Drop Cells Not Reportable 02/24/22 03:27 Ovalocytes Not Reportable 02/24/22 03:27 Helmet Cells Not Reportable 02/24/22 03:27 [place] Bodies Not Reportable 02/24/22 03:27 [place] Rings Not Reportable 02/24/22 03:27 [place] Cells Not Reportable 02/24/22 03:27 Bite Cells Not Reportable 02/24/22 03:27 Crenated Cell Not Reportable 02/24/22 03:27 Elliptocytes Not Reportable 02/24/22 03:27 Acanthocytes (Spur) Not Reportable 02/24/22 03:27 Rouleaux Not Reportable 02/24/22 03:27 Hemoglobin C Crystals Not Reportable 02/24/22 03:27 Schistocytes Not Reportable 02/24/22 03:27 Malaria parasites Not Reportable 02/24/22 03:27 Julius Bodies Not Reportable 02/24/22 03:27 Hem Pathologist Commnt No 02/24/22 03:27 ABG pH 7.181 pH Units (7.350-7.450) L* 02/23/22 05:10 ABG pCO2 14.9 mm Hg 02/23/22 05:10 ABG pO2 119.5 mm Hg (80.0-90.0) H 02/23/22 05:10 ABG HCO3 5.4 mmol/L (20.0-26.0) L 02/23/22 05:10 ABG O2 Saturation 97.9 % (95.0-99.0) 02/23/22 05:10 ABG O2 Content 12.0 (0.0-44) 02/23/22 05:10 ABG Base Excess -20.9 mmol/L (-2.0-3.0) L 02/23/22 05:10 ABG Hemoglobin 8.7 gm/dl (14.0-18.0) L 02/23/22 05:10 ABG Carboxyhemoglobin 1.4 % (0.0-5.0) 02/23/22 05:10 ABG Methemoglobin 0.4 % (0.0-1.5) 02/23/22 05:10 Oxyhemoglobin 96.0 % (95.0-99.0) 02/23/22 05:10 FiO2 21 % 02/23/22 05:10 Sodium 134 mmol/L (137-145) L 02/25/22 04:04 Potassium 3.6 mmol/L (3.6-5.0) 02/25/22 04:04 Chloride 94.9 mmol/L (98-107) L 02/25/22 04:04 Carbon Dioxide 28 mmol/L (22-30) 02/25/22 04:04 Anion Gap 15 mmol/L 02/25/22 04:04 BUN 10 mg/dL (9-20) 02/25/22 04:04 Creatinine 1.4 mg/dL (0.8-1.3) H 02/25/22 04:04 Estimated GFR > 60 ml/min 02/25/22 04:04 BUN/Creatinine Ratio 7 % 02/25/22 04:04 Glucose 143 mg/dL (75-100) H 02/25/22 04:04 POC Glucose 77 mg/dL (70-105) 02/25/22 11:10 Lactic Acid 2.40 mmol/L (0.7-2.0) H* 02/23/22 11:32 Calcium 8.9 mg/dL (8.4-10.2) 02/25/22 04:04 Phosphorus 2.30 mg/dL (2.5-4.5) L 02/25/22 04:04 Magnesium 1.60 mg/dL (1.7-2.3) L 02/25/22 04:04 Total Bilirubin 0.40 mg/dL (0.1-1.2) 02/23/22 04:18 AST 47 units/L (5-40) H 02/23/22 04:18 ALT 21 units/L (7-56) 02/23/22 04:18 Alkaline Phosphatase 171 units/L (35-129) H 02/23/22 04:18 Total Creatine Kinase 183 units/L (55-170) H 02/25/22 11:39 CK-MB (CK-2) 2.0 ng/mL (0.0-4.0) 02/25/22 11:39 CK-MB (CK-2) Rel Index 1.0 (0-4) 02/25/22 11:39 Troponin T < 0.010 ng/mL (0.00-0.029) 02/25/22 11:39 Total Protein 7.8 g/dL (6.3-8.2) 02/23/22 04:18 Albumin 4.4 g/dL (3.9-5) 02/23/22 04:18 Albumin/Globulin Ratio 1.3 % 02/23/22 04:18 Urine Color Straw (Yellow) 02/23/22 08:03 Urine Turbidity Clear (Clear) 02/23/22 08:03 Specific [place] (Man) 1.015 (1.003-1.030) 02/23/22 08:03 Ur Protein (Man) 2+ mg/dL (Negative) 02/23/22 08:03 Ur Ketones (Man) 80 (Negative) 02/23/22 08:03 Urine Bilirubin (Man) Negative (Negative) 02/23/22 08:03 Urine WBC (Auto) < 1.0 /HPF (0.0-6.0) 02/23/22 08:03 Urine RBC (Auto) < 1.0 /HPF (0.0-6.0) 02/23/22 08:03 U Epithel Cells (Auto) < 1.0 /HPF (0-13.0) 02/23/22 08:03 Urine RBC (Manual) 2+ (Negative) 02/23/22 08:03 Urine Mucus Few /HPF 02/23/22 08:03 Urine Opiates Screen Negative 02/23/22 08:03 Urine Methadone Screen Negative 02/23/22 08:03 Ur Barbiturates Screen Negative 02/23/22 08:03 Ur Phencyclidine Scrn Negative 02/23/22 08:03 Ur Amphetamines Screen Negative 02/23/22 08:03 U Benzodiazepines Scrn Negative 02/23/22 08:03 Urine Cocaine Screen Negative 02/23/22 08:03 U Marijuana (THC) Screen Positive 02/23/22 08:03 Drugs of Abuse Note Disclamer 02/23/22 08:03 Plasma/Serum Alcohol < 0.01 % (0-0.07) 02/23/22 04:18 Active Medications - Current Medications Current Medications: Generic Name Dose Route Start Last Admin Trade Name Freq PRN Reason Stop Dose Admin Acetaminophen 650 mg 02/23/22 05:55 Acetaminophen 325 Mg Tab PO Q4H PRN Pain MILD(1-3)/Fever >100.5/HUSSEIN Albuterol 2.5 mg 02/23/22 05:55 Albuterol 2.5 Mg/3 Ml Nebu IH Q4HRT PRN Shortness Of Breath Amlodipine Besylate 5 mg 02/24/22 19:00 02/25/22 09:05 Amlodipine 5 Mg Tab PO 5 mg QDAY MARCUS Administration Dextrose 50 ml 02/24/22 17:46 Dextrose 50% In Water (25gm) 50 Ml Syringe IV Q30MIN PRN Hypoglycemia Protocol Docusate Sodium 100 mg 02/24/22 22:00 02/25/22 09:05 Docusate Sodium 100 Mg Cap PO 100 mg BID [facility] Administration Famotidine 20 mg 02/23/22 10:00 02/25/22 09:05 Famotidine 20 Mg Tab PO 20 mg QAM MARCUS Administration Hydralazine HCl 10 mg 02/24/22 09:00 Hydralazine 20 Mg/1 Ml Inj IV Q4H PRN Hypertension Hydromorphone HCl 1 mg 02/23/22 16:50 02/24/22 09:30 Hydromorphone 1 Mg/1 Ml Inj IV 1 mg Q4H PRN Administration Pain , Severe (7-10) Ampicillin Sodium/Sulbactam Sodium 3 gm in 100 mls @ 200 mls/hr 02/24/22 12:00 02/25/22 11:10 Unasyn/Ns 3 Gm/100 Ml IV 200 mls/hr Q6HR [facility] Administration Protocol Insulin Glargine 24 units 02/24/22 17:47 02/24/22 22:21 Insulin Glargine 100 Units/Ml SUB-Q Not Given QHS [facility] Insulin Human Lispro 0 unit 02/24/22 22:00 02/25/22 12:20 Insulin Lispro 100 Unit/Ml SUB-Q Not Given ACHS [facility] Protocol Magnesium Hydroxide 30 ml 02/25/22 09:35 Magnesium Hydroxide (Mom) Oral Liqd Udc PO Q4H PRN Constipation Morphine Sulfate 2 mg 02/23/22 05:55 02/24/22 11:37 Morphine 2 Mg/1 Ml Inj IV 2 mg Q4H PRN Administration Pain, Moderate (4-6) Ondansetron HCl 4 mg 02/23/22 05:55 02/23/22 12:33 Ondansetron 4 Mg/2 Ml Inj IV 4 mg Q8H PRN Administration Nausea And Vomiting Oxycodone/Acetaminophen 1 tab 02/23/22 05:26 02/24/22 22:25 Oxycodone /Acetaminophen 5-325mg Tab PO 1 tab Q6H PRN Administration Pain, Moderate (4-6) Sodium Chloride 10 ml 02/23/22 10:00 02/25/22 09:06 Sodium Chloride 0.9% 10 Ml Flush Syringe IV 10 ml BID MARCUS Administration Sodium Chloride 10 ml 02/23/22 05:26 Sodium Chloride 0.9% 10 Ml Flush Syringe IV PRN PRN LINE FLUSH Nutrition/Malnutrition Assess - Dietary Evaluation Nutrition/Malnutrition Findings: Nutrition Notes Start: 02/23/22 16:40 Freq: Status: Active Protocol: Document 02/23/22 16:40 TAMI (Rec: 02/23/22 17:14 TAMI [id number]) Nutrition Notes Need for Assessment generated from: MD Order,Education,Low BMI Initial or Follow up Assessment Current Diagnosis Acute Kidney Injury,Diabetes Other Pertinent Diagnosis N/V/Abdominal Pain, DKA, Leukocytosis, SIRS, R- Posterior Calcaneal Fracture Current Diet NPO (since 02/23 05:56), Consistent Carbohydrates+D Suppl (from B 02/24). Labs/Tests 02/23: Na 135, Cl 93.8, CO2 11 , BUN 36, Crea 2.6, Glu 418. Pertinent Medications 02/23: D5w @ 125ml/hr, KCl 20mEq, others nutritionally unremarkable. 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 Anthropometrics have been corrected, Pt no longer a Low BMI. Weight Status Appropriate Subjective/Other Information RD consult for nutrition education and Low BMI assessment. Pt currently on NPO. Per MD diet can be advanced to PO, according to [place] & Physical notes. Pt is on Room Air, O2 saturation @ 99%, according to Physical Assessment History notes. Pt presents a R-Ankle traumatic wound as sign of concern for skin risk at the time, according to Physical Assessment History notes. I will prescribe dietary supplements to support wound healing processes during LOS. Pt complains of N/V/ Generalized Pain, according to History & Physical notes. Anthropometrics have been corrected, Pt no longer a Low BMI. Pt still in critical condition , not a candidate for Nutrition Education at the time, will assess feasibility on F/U. Percent of energy/protein needs met: Pt currently on NPO. When pertinent, advance to prescribed Consistent Carbohydrates Diet provides for energy/protein needs (2, 061 Kcal/91 g) during LOS; additionally, Dietary Supplements will support wound healing processes with 360 Kcal and 36 g of protein. Burn Absent Trauma Present GI Symptoms Nausea,Vomiting,Other Food Allergy No Skin Integrity/Comment R-Ankle traumatic wound. 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 Etiology R-Posterior Calcaneal Fracture As Evidenced by Signs and Symptoms R-Ankle traumatic open wound, with bone exposure. Is patient on ventilator? No Is Patient Ambulatory and/or Out of Bed Yes REE-(Bruno-St. Jeor-ambulatory/OOB) [ [id number] [id number]] Calculation [facility] Additional Notes Protein: 1.25-1.5 g/Kg ABW; 70 -84 g/day. Fluids: 1 ml/Kcal, or as per MD. Nutrition Intervention Change Diet Order: Advance to Consistent Carbohydrates Diet as tolerated. Add Supplement/Snack (indicate name/kcal Start Ensure High Protein :BID /protein ) . Provides kCal: 360 Provides Protein (gm) 36 Goal #1 Support, through dietary supplementation, wound healing processes during LOS. Goal #2 Adjust the dietary intervention to better serve Pt's needs and clinical conditions during LOS. Follow-Up By: 03/02/22 Additional Comments Nutrition education will be provided at F/U, if feasible. Start monitoring food tolerance, %PO intake of meals , dietary supplements, and BM. <MANI GHOSH - Last Filed: 02/26/22 14:27> History Interval history: I saw and evaluated the patient. Discussed with the nurse practitioner and agree with their findings and plan as documented in this note. Hospitalist Physical - Constitutional Vitals: Temp Pulse Resp BP Pulse Ox 98.9 F 110 H 12 141/90 100 02/25/22 07:30 02/25/22 17:00 02/25/22 17:00 02/25/22 17:00 02/25/22 16:09 HEART Score - HEART Score Troponin: Troponin T < 0.010 ng/mL (0.00-0.029) 02/25/22 11:39 Results - Labs CBC & Chem 7: 02/25/22 04:04 02/25/22 04:04 Labs: Laboratory Last Values WBC 7.2 K/mm3 (4.5-11.0) 02/25/22 04:04 RBC 3.74 M/mm3 (3.65-5.03) 02/25/22 04:04 Hgb 11.2 gm/dl (11.8-15.2) L 02/25/22 04:04 Hct 34.8 % (35.5-45.6) L 02/25/22 04:04 MCV 93 fl (84-94) 02/25/22 04:04 MCH 30 pg (28-32) 02/25/22 04:04 MCHC 32 % (32-34) 02/25/22 04:04 RDW 13.6 % (13.2-15.2) 02/25/22 04:04 Plt Count 189 K/mm3 (140-440) 02/25/22 04:04 Lymph % (Auto) 5.3 % (13.4-35.0) L 02/23/22 04:18 [place] % (Auto) 4.0 % (0.0-7.3) 02/23/22 04:18 Eos % (Auto) 0.0 % (0.0-4.3) 02/23/22 04:18 Baso % (Auto) 0.7 % (0.0-1.8) 02/23/22 04:18 Lymph # (Auto) 0.9 K/mm3 (1.2-5.4) L 02/23/22 04:18 [place] # (Auto) 0.7 K/mm3 (0.0-0.8) 02/23/22 04:18 Eos # (Auto) 0.0 K/mm3 (0.0-0.4) 02/23/22 04:18 Baso # (Auto) 0.1 K/mm3 (0.0-0.1) 02/23/22 04:18 Add Manual Diff Complete 02/24/22 03:27 Total Counted 100 02/24/22 03:27 Seg Neutrophils % 90.0 % (40.0-70.0) H 02/23/22 04:18 Seg Neuts % (Manual) 85.0 % (40.0-70.0) H 02/24/22 03:27 Band Neutrophils % 0 % 02/24/22 03:27 Lymphocytes % (Manual) 10.0 % (13.4-35.0) L 02/24/22 03:27 Reactive Lymphs % (Man) 0 % 02/24/22 03:27 Monocytes % (Manual) 2.0 % (0.0-7.3) 02/24/22 03:27 Eosinophils % (Manual) 3.0 % (0.0-4.3) 02/24/22 03:27 Basophils % (Manual) 0 % (0.0-1.8) 02/24/22 03:27 Metamyelocytes % 0 % 02/24/22 03:27 Myelocytes % 0 % 02/24/22 03:27 Promyelocytes % 0 % 02/24/22 03:27 Blast Cells % 0 % 02/24/22 03:27 Nucleated RBC % Not Reportable 02/24/22 03:27 Seg Neutrophils # 15.8 K/mm3 (1.8-7.7) H 02/23/22 04:18 Seg Neutrophils # Man 9.8 K/mm3 (1.8-7.7) H 02/24/22 03:27 Band Neutrophils # 0.0 K/mm3 02/24/22 03:27 Lymphocytes # (Manual) 1.2 K/mm3 (1.2-5.4) 02/24/22 03:27 Abs React Lymphs (Man) 0.0 K/mm3 02/24/22 03:27 Monocytes # (Manual) 0.2 K/mm3 (0.0-0.8) 02/24/22 03:27 Eosinophils # (Manual) 0.3 K/mm3 (0.0-0.4) 02/24/22 03:27 Basophils # (Manual) 0.0 K/mm3 (0.0-0.1) 02/24/22 03:27 Metamyelocytes # 0.0 K/mm3 02/24/22 03:27 Myelocytes # 0.0 K/mm3 02/24/22 03:27 Promyelocytes # 0.0 K/mm3 02/24/22 03:27 Blast Cells # 0.0 K/mm3 02/24/22 03:27 WBC Morphology Not Reportable 02/24/22 03:27 Hypersegmented Neuts Not Reportable 02/24/22 03:27 Hyposegmented Neuts Not Reportable 02/24/22 03:27 Hypogranular Neuts Not Reportable 02/24/22 03:27 Smudge Cells Not Reportable 02/24/22 03:27 Toxic Granulation Not Reportable 02/24/22 03:27 Toxic Vacuolation Not Reportable 02/24/22 03:27 Dohle Bodies Not Reportable 02/24/22 03:27 Pelger-Huet Anomaly Not Reportable 02/24/22 03:27 Wally Rods Not Reportable 02/24/22 03:27 Platelet Estimate Cons 02/24/22 03:27 Clumped Platelets Not Reportable 02/24/22 03:27 Plt Clumps, EDTA Not Reportable 02/24/22 03:27 Large Platelets Not Reportable 02/24/22 03:27 Giant Platelets Not Reportable 02/24/22 03:27 Platelet Satelliting Not Reportable 02/24/22 03:27 Plt Morphology Comment Not Reportable 02/24/22 03:27 RBC Morphology Not Reportable 02/24/22 03:27 Dimorphic RBCs Not Reportable 02/24/22 03:27 Polychromasia Not Reportable 02/24/22 03:27 Hypochromasia Not Reportable 02/24/22 03:27 Poikilocytosis Not Reportable 02/24/22 03:27 Anisocytosis Not Reportable 02/24/22 03:27 Microcytosis Not Reportable 02/24/22 03:27 Macrocytosis Not Reportable 02/24/22 03:27 Spherocytes Not Reportable 02/24/22 03:27 Pappenheimer Bodies Not Reportable 02/24/22 03:27 Sickle Cells Not Reportable 02/24/22 03:27 Target Cells Not Reportable 02/24/22 03:27 Tear Drop Cells Not Reportable 02/24/22 03:27 Ovalocytes Not Reportable 02/24/22 03:27 Helmet Cells Not Reportable 02/24/22 03:27 [place] Bodies Not Reportable 02/24/22 03:27 [place] Rings Not Reportable 02/24/22 03:27 [place] Cells Not Reportable 02/24/22 03:27 Bite Cells Not Reportable 02/24/22 03:27 Crenated Cell Not Reportable 02/24/22 03:27 Elliptocytes Not Reportable 02/24/22 03:27 Acanthocytes (Spur) Not Reportable 02/24/22 03:27 Rouleaux Not Reportable 02/24/22 03:27 Hemoglobin C Crystals Not Reportable 02/24/22 03:27 Schistocytes Not Reportable 02/24/22 03:27 Malaria parasites Not Reportable 02/24/22 03:27 Julius Bodies Not Reportable 02/24/22 03:27 Hem Pathologist Commnt No 02/24/22 03:27 ABG pH 7.181 pH Units (7.350-7.450) L* 02/23/22 05:10 ABG pCO2 14.9 mm Hg 02/23/22 05:10 ABG pO2 119.5 mm Hg (80.0-90.0) H 02/23/22 05:10 ABG HCO3 5.4 mmol/L (20.0-26.0) L 02/23/22 05:10 ABG O2 Saturation 97.9 % (95.0-99.0) 02/23/22 05:10 ABG O2 Content 12.0 (0.0-44) 02/23/22 05:10 ABG Base Excess -20.9 mmol/L (-2.0-3.0) L 02/23/22 05:10 ABG Hemoglobin 8.7 gm/dl (14.0-18.0) L 02/23/22 05:10 ABG Carboxyhemoglobin 1.4 % (0.0-5.0) 02/23/22 05:10 ABG Methemoglobin 0.4 % (0.0-1.5) 02/23/22 05:10 Oxyhemoglobin 96.0 % (95.0-99.0) 02/23/22 05:10 FiO2 21 % 02/23/22 05:10 Sodium 134 mmol/L (137-145) L 02/25/22 04:04 Potassium 3.6 mmol/L (3.6-5.0) 02/25/22 04:04 Chloride 94.9 mmol/L (98-107) L 02/25/22 04:04 Carbon Dioxide 28 mmol/L (22-30) 02/25/22 04:04 Anion Gap 15 mmol/L 02/25/22 04:04 BUN 10 mg/dL (9-20) 02/25/22 04:04 Creatinine 1.4 mg/dL (0.8-1.3) H 02/25/22 04:04 Estimated GFR > 60 ml/min 02/25/22 04:04 BUN/Creatinine Ratio 7 % 02/25/22 04:04 Glucose 143 mg/dL (75-100) H 02/25/22 04:04 POC Glucose 200 mg/dL (70-105) H 02/25/22 16:31 Lactic Acid 2.40 mmol/L (0.7-2.0) H* 02/23/22 11:32 Calcium 8.9 mg/dL (8.4-10.2) 02/25/22 04:04 Ionized Calcium 4.3 mg/dL (4.8-5.6) L 02/23/22 11:32 Phosphorus 2.30 mg/dL (2.5-4.5) L 02/25/22 04:04 Magnesium 1.60 mg/dL (1.7-2.3) L 02/25/22 04:04 Total Bilirubin 0.40 mg/dL (0.1-1.2) 02/23/22 04:18 AST 47 units/L (5-40) H 02/23/22 04:18 ALT 21 units/L (7-56) 02/23/22 04:18 Alkaline Phosphatase 171 units/L (35-129) H 02/23/22 04:18 Total Creatine Kinase 183 units/L (55-170) H 02/25/22 11:39 CK-MB (CK-2) 2.0 ng/mL (0.0-4.0) 02/25/22 11:39 CK-MB (CK-2) Rel Index 1.0 (0-4) 02/25/22 11:39 Troponin T < 0.010 ng/mL (0.00-0.029) 02/25/22 11:39 Total Protein 7.8 g/dL (6.3-8.2) 02/23/22 04:18 Albumin 4.4 g/dL (3.9-5) 02/23/22 04:18 Albumin/Globulin Ratio 1.3 % 02/23/22 04:18 Urine Color Straw (Yellow) 02/23/22 08:03 Urine Turbidity Clear (Clear) 02/23/22 08:03 Specific [place] (Man) 1.015 (1.003-1.030) 02/23/22 08:03 Ur Protein (Man) 2+ mg/dL (Negative) 02/23/22 08:03 Ur Ketones (Man) 80 (Negative) 02/23/22 08:03 Urine Bilirubin (Man) Negative (Negative) 02/23/22 08:03 Urine WBC (Auto) < 1.0 /HPF (0.0-6.0) 02/23/22 08:03 Urine RBC (Auto) < 1.0 /HPF (0.0-6.0) 02/23/22 08:03 U Epithel Cells (Auto) < 1.0 /HPF (0-13.0) 02/23/22 08:03 Urine RBC (Manual) 2+ (Negative) 02/23/22 08:03 Urine Mucus Few /HPF 02/23/22 08:03 Urine Opiates Screen Negative 02/23/22 08:03 Urine Methadone Screen Negative 02/23/22 08:03 Ur Barbiturates Screen Negative 02/23/22 08:03 Ur Phencyclidine Scrn Negative 02/23/22 08:03 Ur Amphetamines Screen Negative 02/23/22 08:03 U Benzodiazepines Scrn Negative 02/23/22 08:03 Urine Cocaine Screen Negative 02/23/22 08:03 U Marijuana (THC) Screen Positive 02/23/22 08:03 Drugs of Abuse Note Disclamer 02/23/22 08:03 Plasma/Serum Alcohol < 0.01 % (0-0.07) 02/23/22 04:18 Nutrition/Malnutrition Assess - Dietary Evaluation Nutrition/Malnutrition Findings: Nutrition Notes Start: 02/23/22 16:40 Freq: Status: Discharge Protocol: Document 02/23/22 16:40 TAMI (Rec: 02/23/22 17:14 TAMI [id number]) Nutrition Notes Need for Assessment generated from: MD Order,Education,Low BMI Initial or Follow up Assessment Current Diagnosis Acute Kidney Injury,Diabetes Other Pertinent Diagnosis N/V/Abdominal Pain, DKA, Leukocytosis, SIRS, R- Posterior Calcaneal Fracture Current Diet NPO (since 02/23 05:56), Consistent Carbohydrates+D Suppl (from B 02/24). Labs/Tests 02/23: Na 135, Cl 93.8, CO2 11 , BUN 36, Crea 2.6, Glu 418. Pertinent Medications 02/23: D5w @ 125ml/hr, KCl 20mEq, others nutritionally unremarkable. 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 Anthropometrics have been corrected, Pt no longer a Low BMI. Weight Status Appropriate Subjective/Other Information RD consult for nutrition education and Low BMI assessment. Pt currently on NPO. Per MD diet can be advanced to PO, according to [place] & Physical notes. Pt is on Room Air, O2 saturation @ 99%, according to Physical Assessment History notes. Pt presents a R-Ankle traumatic wound as sign of concern for skin risk at the time, according to Physical Assessment History notes. I will prescribe dietary supplements to support wound healing processes during LOS. Pt complains of N/V/ Generalized Pain, according to History & Physical notes. Anthropometrics have been corrected, Pt no longer a Low BMI. Pt still in critical condition , not a candidate for Nutrition Education at the time, will assess feasibility on F/U. Percent of energy/protein needs met: Pt currently on NPO. When pertinent, advance to prescribed Consistent Carbohydrates Diet provides for energy/protein needs (2, 061 Kcal/91 g) during LOS; additionally, Dietary Supplements will support wound healing processes with 360 Kcal and 36 g of protein. Burn Absent Trauma Present GI Symptoms Nausea,Vomiting,Other Food Allergy No Skin Integrity/Comment R-Ankle traumatic wound. 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 Etiology R-Posterior Calcaneal Fracture As Evidenced by Signs and Symptoms R-Ankle traumatic open wound, with bone exposure. Is patient on ventilator? No Is Patient Ambulatory and/or Out of Bed Yes REE-([facility]. Jeor-ambulatory/OOB) [ [id number] NUTR.[id number]] Calculation Used for Recommendations Bruno-St Jeor Additional Notes Protein: 1.25-1.5 g/Kg ABW; 70 -84 g/day. Fluids: 1 ml/Kcal, or as per MD. Nutrition Intervention Change Diet Order: Advance to Consistent Carbohydrates Diet as tolerated. Add Supplement/Snack (indicate name/kcal Start Ensure High Protein :BID /protein ) . Provides kCal: 360 Provides Protein (gm) 36 Goal #1 Support, through dietary supplementation, wound healing processes during LOS. Goal #2 Adjust the dietary intervention to better serve Pt's needs and clinical conditions during LOS. Follow-Up By: 03/02/22 Additional Comments Nutrition education will be provided at F/U, if feasible. Start monitoring food tolerance, %PO intake of meals , dietary supplements, and BM.
--- NOTE | 2022-02-25 15:49 | XRay Report ---
RIGHT ANKLE 1 VIEW(S) INDICATION / CLINICAL INFORMATION: fracture COMPARISON: 01/23/22 FINDINGS: BONES / JOINT(S): No significant change in the minimally displaced transverse fracture through the ba se of the medial malleolus on this single view No significant arthritis. SOFT TISSUES: Mild bimalleolar soft tissue swelling. Signer Name: Leoncio Cook MD Signed: 02/25/2022 3:44 PM Workstation Name: [id number]
--- NOTE | 2022-02-25 15:51 | XRay Report ---
RIGHT FOOT 2 VIEW(S) INDICATION / CLINICAL INFORMATION: fracture COMPARISON: 01/24/20 FINDINGS: BONES / JOINT(S): No significant change in the comminuted calcaneus fracture with displaced posterior superior calcaneal fragment with possible exposure through the skin No significant arthritis. SOFT TISSUES: Soft tissue defect on the posterior aspect of the ankle with possible fracture fragment protruding beyond the skin. Vascular calcifications characteristic of diabetes and/or renal failure ADDITIONAL FINDINGS: None. IMPRESSION: 1. No change in comminuted calcaneus fracture with possible extension of fracture fragments to the le efrain of the skin to or beyond Signer Name: Leoncio Cook MD Signed: 02/25/2022 3:47 PM Workstation Name: [id number]
[2022-02-25 17:39] VITALS: BP 141/90
--- NOTE | 2022-02-25 17:46 | Event Note ---
<BALA MITCHELL. - Last Filed: 02/25/22 17:45> Date: 02/25/22 This evening called the patient's room by RN as patient is requesting to speak to provider. Patient updated about ongoing care. Patient expressed that he is frustrated and would like to leave AGAINST MEDICAL ADVICE. Patient understands the risk involved. Explained to patient was involved with leaving AGAINST MEDICAL ADVICE. Patient still expressed want to leave AGAINST MEDICAL ADVICE. Asked RN to provide patient with paperwork when he is ready. Charge nurse also spoke to patient regarding risk and benefits. Dr. Ghosh aware of patient wanting to leave AMA. <MANI GHOSH - Last Filed: 02/26/22 14:28> I saw and evaluated the patient. Discussed with the nurse practitioner and agree with their findings and plan as documented in this note.
--- NOTE | 2022-02-27 07:33 | Discharge Summary ---
Providers - Providers Date of Admission: 02/23/22 05:27 Attending physician: MANI GHOSH MD 02/23/22 05:55 Consult to Physician [CONS] Routine Comment: Consulting Provider: BRADLEY RUIZ Physician Instructions: Reason For Exam: gabe 02/23/22 10:01 Consult to Physician [CONS] Routine Comment: call office/abdelrahman Consulting Provider: NICOLA TURCIOS Physician Instructions: Reason For Exam: calcaneal fracture 02/23/22 12:34 Consult to Wound/ET Nurse [CONS] Routine Reason For Exam: wound eval, right heel. 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 In the emergency department patient was found to have leukocytosis of 17.5, pH of 7.181, PCO2 of 41.9, hyperglycemia at 747, lactic acid of 6.1, elevated BUN/creatinine at 37/2.8, hyperkalemia at 7.3, and bicarbonate of 4 consistent with DKA with significant elevation to anion gap, metabolic acidosis and hyperkalemia. Patient was resuscitated with normal saline, given insulin IV push and started on insulin drip, given multiple rounds of bicarbonate, calcium gluconate and started on a bicarbonate drip. Patient was admitted to the hospitalist service with DKA with consults to nephrology and [facility]. Hospital course to date: 02/23: Continue insulin gtt and IVF. Patient complaining of severe right heel pain. upon unwrapping dressing, open wound approximately 3 cm in diameter with exposed bone visualized. Initiated on unasyn IV for empiric coverage. Orthopedic surgery, Dr. Turcios consulted. 02/24: Patient still complains of pain, wanting something to eat. Patient anion gap is not closed this morning and was given an LR bolus dose of anion gap closing at 1400 BMP. This BMP resulted at 1500 and anion gap was noted to be 14, transition to SSI, started on a CC diet, and long-acting insulin. 02/25: Infectious disease consulted, RN noted T wave inversions, twelve-lead ECG showed T wave inversions. Cardiac enzymes within normal limits. Patient does not complain of any chest pain, radiation, jaw pain, nausea or vomiting. He is complaining of abdominal discomfort which he attributes to stool softener. Patient will be transferred to the floor. Phosphorus and magnesium repleted. Orthopedics contacted . Renal function is improving Patient left AMA on 02/25 due to need to guerrero the anniversary of his mother per patient. Explain risks involved but patient ultimately decided to leave AMA. Assessment and Plan This is a 41-year-old male with IDDM admitted with DKA, posterior calcaneal fracture, likely hypoglycemic seizure, lactic acidosis, acute kidney injury, hyperkalemia Neuro: Seizure, acute pain -Reported seizure prior to admission -Suspect hypoglycemic seizure -Further seizure activity noted -Analgesia as needed -Reorientation as needed -Maintain sleep-wake cycle -aspiration/seizure precautions -CT head shows no acute intracranial abnormality, left occipital scalp contusion -UDS positive for marijuana Cardiac: Hypertension -Norvasc -As needed hydralazine -Blood pressure monitoring per protocol -Troponin less than 0.010 Respiratory: NAD -Supplemental oxygen as needed -SPO2 monitor per protocol -Pulmonary hygiene GI: NAD -24 hours -1377 mL -PPI -CC diet -BR: Colace : Acute kidney injury secondary to vasomotor nephropathy, hyponatremia -Nephrology consulted, appreciate recommendations -Monitor intake and output -Renally dose medications -Avoid nephrotoxic medications -Trend BMP ID: SIRS with organ dysfunction, lactic acidosis -Infectious disease consulted, appreciate recommendations -WOCN consulted -Presented with leukocytosis, lactic acidosis, exposed bone fracture -Antibiotic therapy with Unasyn -Monitor WBC and temperature curve Endo: S/p DKA, H/o IDDM -Presented with weakness, nausea vomiting, severe leg pain -Presented with anion gap of 30, blood glucose 403, ketonuria, ABG pH 7.181, bicarb 4 and admission -S/p DKA protocol and insulin drip -SSI -Accu-Cheks q. ACH S -Long-acting insulin, titrate as needed -Hemoglobin A1c pending -Avoid hypoglycemia Heme: Leukocytosis -Trend CBC -Transfuse hemoglobin less than 7 -SCDs to BLE while in bed MS: Posterior calcaneal fracture -Orthopedics consulted, appreciate recommendations -Open wound on posterior aspect of right heel, 3 cm wound with exposed bone visualized -Per patient/chart review injury acquired when patient was moving a washer on January 23 -Patient was examined in the emergency department on 01/23, XR of the foot demonstrated posterior calcaneal fracture however the patient was discharged and advised to follow-up with orthopedics outpatient by patient did not follow-up -As needed analgesia -Antibiotic therapy with Unasyn IV -Wound care consult -Repeat foot/ankle imaging pending Disposition: 07 LEFT AGAINST MEDICAL ADVICE Final Discharge Diagnosis (Prints w/discharge instructions): DKA, Posterior calcaneal fracture Time spent for discharge: 60 Core Measure Documentation - Palliative Care Palliative Care/ Comfort Measures: Not Applicable - Core Measures Any of the following diagnoses?: none Exam - Constitutional Vitals: Temp Pulse Resp BP Pulse Ox 98.9 F 110 H 12 141/90 100 02/25/22 07:30 02/25/22 17:00 02/25/22 17:00 02/25/22 17:00 02/25/22 16:09 Plan Follow up with: MARIAH DE JESUS MD [Primary Care Provider] - 3-5 Days
--- NOTE | 2022-03-01 09:57 | Electrocardiograph Report ---
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
== END 2022-02-25 17:55 | disposition left against medical advice (07) | DRG 637 ==
LOC: ED 03:38 → CC1 05:27
PROVIDERS: ADMIT Hospitalist; ATTEND Internal Medicine
PROC: 4A033R1 Measurement of Arterial Saturation, Peripheral, Percutaneous Approach (ICD-10-PCS; principal; 2022-02-23)
DX: E10.10 Type 1 diabetes mellitus with ketoacidosis without coma (principal); N17.0 Acute kidney failure with tubular necrosis; R65.11 Systemic inflammatory response syndrome (SIRS) of non-infectious origin with acute organ dysfunction; E87.1 Hypo-osmolality and hyponatremia; E87.5 Hyperkalemia; I10 Essential (primary) hypertension; R56.9 Unspecified convulsions; F17.200 Nicotine dependence, unspecified, uncomplicated; S92.001A Unspecified fracture of right calcaneus, initial encounter for closed fracture; X58.XXXA Exposure to other specified factors, initial encounter; Y93.89 Activity, other specified; Y92.89 Other specified places as the place of occurrence of the external cause; Y99.8 Other external cause status; Z79.4 Long term (current) use of insulin; Z82.49 Family history of ischemic heart disease and other diseases of the circulatory system; Z88.2 Allergy status to sulfonamides; Z83.3 Family history of diabetes mellitus; Z53.29 Procedure and treatment not carried out because of patient's decision for other reasons
CPT/HCPCS: 36415; 70450; 80048; 80053; 80307; 80320; 81001; 82140; 82330; 82550; 82553; 82803; 82962; 83735; 84100; 84484; 85007; 85025; 85027; 93005; 99291; G0378; J3480; J3490; Q9967; G0480; J0295; J0610; J1170; J1815; J2270; J2405; J3475; J7030; J7040; J7120

== ENCOUNTER 2022-03-17 08:37 | Emergency (ER) | payer BC ==
[2022-03-17 08:47] VITALS: BP 114/85
--- NOTE | 2022-03-17 11:29 | Emergency Department Report ---
ED Extremity Problem HPI - General Chief complaint: Extremity Injury, Lower Stated complaint: RIGHT FOOT PAIN Source: patient Mode of arrival: Ambulatory Limitations: Physical Limitation - History of Present Illness Initial comments: 41-year-old male presents to the ED complaining of right foot pain. Patient has a history of diabetes mellitus. Patient currently has a right foot ulcer noted to the heel. Patient states that was has been taking antibiotic that was given to him by his father. Patient is requesting for a wound care referral. He denies any fever ,chills or nausea or vomiting. Patient is able to bear weight without any difficulty. State he has been using peroxide to clean the wound and applying a bandage. She is alert and oriented x3. No acute distress noted. No ill appearance MD Complaint: extremity pain Onset/Timin -: month(s) Location: right, lower extremity History of Same: Yes Radiation: none Severity scale (0 -10): 7 Quality: aching Consistency: intermittent Improves with: nothing Worsens with: nothing Associated Symptoms: denies other symptoms - Related Data Home Medications Medication Instructions Recorded Confirmed Last Taken HYDROcodone/APAP 7.5-325 [[place] 1 each PO Q6HR PRN 02/22/22 02/22/22 1 Week Ago 7.5-325 mg TAB] ~02/15/22 Previous Rx's Medication Instructions Recorded Last Taken Type Insulin NPH/Regular [NovoLIN 70/30] 15 unit SUB-Q TID 30 Days #1350 02/22/22 02/12/22 Rx units Syringe,Needle,Insuln,Sf 0.5ML 1 each MC TID 30 Days #100 each 02/22/22 Unknown Rx [Easy Touch Insulin Safety] Acetaminophen/Codeine [Tylenol 1 tab PO Q6H PRN 3 Days #12 tab 03/17/22 Unknown Rx /Codeine # 3 tab] Amoxicillin/K Clav Tab [Augmentin 1 tab PO Q12HR 10 Days #20 tab 03/17/22 Unknown Rx 875 mg] Allergies Allergy/AdvReac Type Severity Reaction Status Date / Time Sulfa (Sulfonamide Allergy Itching Verified 03/17/22 08:45 Antibiotics) ED Review of Systems ROS: Stated complaint: RIGHT FOOT PAIN Other details as noted in HPI Constitutional: denies: chills, fever Eyes: denies: eye pain, eye discharge, vision change ENT: denies: ear pain, throat pain Respiratory: denies: cough, shortness of breath, wheezing Cardiovascular: denies: chest pain, palpitations Endocrine: no symptoms reported Gastrointestinal: denies: abdominal pain, nausea, diarrhea Genitourinary: denies: urgency, dysuria Musculoskeletal: denies: back pain, joint swelling, arthralgia Skin: other (ulcer). denies: rash, lesions Neurological: denies: headache, weakness, paresthesias Psychiatric: denies: anxiety, depression Hematological/Lymphatic: denies: easy bleeding, easy bruising ED Past Medical Hx - Past Medical History Hx Hypertension: Yes Hx Congestive Heart Failure: No Hx Diabetes: Yes Hx Seizures: Yes Hx Asthma: No Hx COPD: No Hx HIV: No Additional medical history: GastrOPORESIS - Surgical History Additional Surgical History: hernia repair - Social History Smoking Status: Current Every Day Smoker Substance Use Type: Marijuana - Medications Home Medications: Home Medications Medication Instructions Recorded Confirmed Last Taken Type HYDROcodone/APAP 7.5-325 [[place] 1 each PO Q6HR PRN 02/22/22 02/22/22 1 Week Ago History 7.5-325 mg TAB] ~02/15/22 Insulin NPH/Regular [NovoLIN 70/30] 15 unit SUB-Q TID 30 Days #1350 02/22/22 02/22/22 02/12/22 Rx units Syringe,Needle,Insuln,Sf 0.5ML 1 each MC TID 30 Days #100 each 02/22/22 Unknown Rx [Easy Touch Insulin Safety] Acetaminophen/Codeine [Tylenol 1 tab PO Q6H PRN 3 Days #12 tab 03/17/22 Unknown Rx /Codeine # 3 tab] Amoxicillin/K Clav Tab [Augmentin 1 tab PO Q12HR 10 Days #20 tab 03/17/22 Unknown Rx 875 mg] ED Physical Exam - General Limitations: Physical Limitation General appearance: alert, in no apparent distress - Head Head exam: Present: atraumatic, normocephalic - Eye Eye exam: Present: normal appearance - ENT ENT exam: Present: mucous membranes moist - Neck Neck exam: Present: normal inspection - Respiratory Respiratory exam: Present: normal lung sounds bilaterally. Absent: respiratory distress - Cardiovascular Cardiovascular Exam: Present: regular rate, normal rhythm. Absent: systolic murmur, diastolic murmur, rubs, gallop - GI/Abdominal GI/Abdominal exam: Present: soft, normal bowel sounds - Rectal Rectal exam: Present: deferred - Extremities Exam Extremities exam: Present: normal inspection - Back Exam Back exam: Present: normal inspection - Neurological Exam Neurological exam: Present: alert, oriented X3 - Psychiatric Psychiatric exam: Present: normal affect, normal mood - Skin Skin exam: Present: warm, dry, intact, normal color. Absent: rash ED Course Vital Signs 03/17/22 08:45 Temperature 97.6 F Pulse Rate 96 H Respiratory 18 Rate Blood Pressure 114/85 O2 Sat by Pulse 100 Oximetry ED Medical Decision Making - Medical Decision Making 41-year-old male presents to the ED complaining of right foot pain. Patient has a history of diabetes mellitus. Patient currently has a right foot ulcer noted to the heel. Patient states that was has been taking antibiotic that was given to him by his father. Patient is requesting for a wound care referral. He denies any fever ,chills or nausea or vomiting. Patient is able to bear weight without any difficulty. State he has been using peroxide to clean the wound and applying a bandage. She is alert and oriented x3. No acute distress noted. No ill appearance. Physical examination stage II diabetic ulcer noted to the right heel. Cleaned with Betadine and applied dressing. Rechecked the patient is resting quietly , comfortable and feeling better. I discussed the results of diagnostic study, my clinical impression and the plan for further treatment with the patient. Patient agrees with plan and discharge at this present time. All question addressed. I have given the patient instruction regarding a diagnosis ,expectation ,follow- up and return precaution. I explained to the patient that emergent condition may arise and to return to the ED for new worsen and any new persisting condition. I have explained the importance of following up with the primary care physician or referral physician listed below has instructed. The patient verbalized understanding of discharge instruction. Critical care attestation.: If time is entered above; I have spent that time in minutes in the direct care of this critically ill patient, excluding procedure time. ED Disposition Clinical Impression: Right foot ulcer Qualifiers: Non-pressure ulcer stage: limited to breakdown of skin Qualified Code(s): L97. 511 - Non-pressure chronic ulcer of other part of right foot limited to breakdown of skin Disposition: 01 HOME / SELF CARE / HOMELESS Is pt being admited?: No Does the pt Need Aspirin: No Condition: Stable Instructions: Diabetes Mellitus and Foot Care, Negative Pressure Wound Therapy Home Guide Additional Instructions: Take medication as prescribed Return to the ED for any worsening symptom Follow-up with your primary care doctor Follow-up with wound care Prescriptions: Amoxicillin/K Clav Tab [Augmentin 875 mg] 1 tab PO Q12HR 10 Days #20 tab Acetaminophen/Codeine [Tylenol /Codeine # 3 tab] 1 tab PO Q6H PRN 3 Days #12 tab PRN Reason: Pain, Moderate (4-6) Referrals: PRIMARY CARE, [Primary Care Provider] - 3-5 Days [facility] [Outside] - 3-5 Days [facility] [Provider Group] - 3-5 Days Forms: Work/School Release Form(ED) Time of Disposition: 11:34
== END 2022-03-17 11:52 | disposition home or self-care (01) ==
LOC: ED 08:37
DX: L97.511 Non-pressure chronic ulcer of other part of right foot limited to breakdown of skin (principal); I10 Essential (primary) hypertension; F17.200 Nicotine dependence, unspecified, uncomplicated; F12.90 Cannabis use, unspecified, uncomplicated; Z79.899 Other long term (current) drug therapy; Z88.2 Allergy status to sulfonamides; Z79.4 Long term (current) use of insulin
CPT/HCPCS: 99282